=== PATIENT | male | born 1945 | race African-American/Black ===

== ENCOUNTER 2016-04-12 03:26 | Inpatient (IN) | payer MEDICARE, OTHER ==
[~2016-04-12] VITALS: Ht 172.7 cm; Wt 45.0 kg
[2016-04-12] MEDS ORDERED: ACLI400A2 IH (06:27)
[2016-04-12] MEDS ORDERED: FURO20TA3 PO (06:27)
[2016-04-12] MEDS ORDERED: OLOD4MIS2 IH (06:27)
[2016-04-12] MEDS ORDERED: PROAIR HFA8.5 GM INH (06:27)
[2016-04-12] MEDS ORDERED: LIDO5JEL3 MM (06:27)
[2016-04-12] MEDS ORDERED: ATOR20TA58 PO (06:27)
[2016-04-12] MEDS ORDERED: PHEN-373 PO (06:27)
[2016-04-12] MEDS ORDERED: METO50TA10 PO (06:27)
[2016-04-12] MEDS ORDERED: SENN1TAB99 PO (06:27)
[2016-04-12] MEDS ORDERED: POLY17PO3 PO (06:27)
[2016-04-12] MEDS ORDERED: ALBU2.5V14 NEB (06:27)
[2016-04-12] MEDS ORDERED: CHOL20002 PO (06:27)
[2016-04-12] MEDS ORDERED: APIX5TAB PO (06:27)
[2016-04-12] MEDS ORDERED: LISI-334 PO (06:27)
[2016-04-12] MEDS ORDERED: CALC-47 PO (06:28)
[2016-04-12] MEDS ORDERED: [UNRECOGNIZED DRUG - CODE] PO (06:31)
[2016-04-12 07:55] VITALS: BP 128/75
[2016-04-12] MEDS ORDERED: PROCHLORPERAZINE 25 MG SUPP.RECT. PR PRN (10:15)
[2016-04-12] MEDS ORDERED: MAGNESIUM HYDROXIDE 2,400 MG/30 ML ORAL.SUSP. PO PRN (10:15)
[2016-04-12] MEDS ORDERED: MAG HYDROX/ALUMINUM HYDROX/SMC 30 ML ORAL.SUSP PO PRN (10:15)
[2016-04-12] MEDS ORDERED: NON FORMULARY ITEM (Albuterol Sulfate (Proair Hfa Inhaler) 1 PUFF) INH PRN (10:15)
[2016-04-12] MEDS ORDERED: LIDOCAINE 2% TOPICAL JELLY 5GM TUBE. TP PRN (10:15)
[2016-04-12] MEDS ORDERED: ONDANSETRON PF 4 MG/2 ML VIAL. IV PRN (10:15)
[2016-04-12] MEDS ORDERED: LACTULOSE 20 GM/30 ML SOLUTION. PO PRN (10:15)
[2016-04-12] MEDS ORDERED: PROCHLORPERAZINE 10 MG/2 ML VIAL. IV PRN (10:15)
[2016-04-12] MEDS ORDERED: BISACODYL 10 MG SUPP.RECT PR PRN (10:15)
[2016-04-12] MEDS ORDERED: MORPHINE SULFATE 2 MG/ML DISP.SYRIN. IV PRN (10:15)
[2016-04-12] MEDS ORDERED: NON FORMULARY ITEM (Albuterol Sulfate (Albuterol Sulfate Conc Neb Soln) 1 VIAL) NEB PRN (10:15)
[2016-04-12] MEDS ORDERED: POLYETHYLENE GLYCOL 3350 17 GM PACKET. PO PRN (10:15)
[2016-04-12] MEDS ORDERED: FUROSEMIDE 20 MG TABLET PO PRN (10:15)
[2016-04-12 11:11] VITALS: BP 115/69
[2016-04-12] MEDS: SENNOSIDES/DOCUSATE 8.6/50MG TABLET. PO SCH (11:30)
[2016-04-12] MEDS: CALCIUM CARB/VIT D3 500/200 TABLET PO SCH (11:30)
[2016-04-12] MEDS: METOPROLOL SUCC 24HR ER 50 MG TAB.ER.24H. PO SCH (11:31)
[2016-04-12] MEDS: APIXABAN 5 MG TABLET. PO SCH ×2 (11:31→20:55)
[2016-04-12] MEDS: LISINOPRIL 20 MG TABLET PO SCH (11:32)
[2016-04-12 11:36] LABS: BASO % 0 % (0-3); EOS % 0 % (0-3); HEMATOCRIT 28.2 % (39.0-53.0); HEMOGLOBIN 8.6 g/dL (13.0-17.5); LYMPH # 0.4 x10^3/uL (1.0-4.8); LYMPH % 13 % (24-48); MEAN CORPUSCULAR HEMOGLOBIN 32 pg (25-35); MEAN CORPUSCULAR HGB CONC 31 g/dL (31-37); MEAN CORPUSCULAR VOLUME 105 fL (79-100); MONO % 7 % (0-9); NEUT % 80 % (31-73); PLATELET COUNT 133 x10^3/uL (140-400); RED BLOOD COUNT 2.69 x10^6/uL (4.30-5.70); RED CELL DISTRIBUTION WIDTH 14.4 % (11.5-14.5); WHITE BLOOD COUNT 2.9 x10^3/uL (4.0-11.0)
[2016-04-12 11:48] LABS: INR 1.3 (0.8-1.1); PROTHROMBIN TIME PATIENT 15.5 SEC (11.7-14.0)
[2016-04-12] MEDS ORDERED: IPRATRPIUM/ALBUTEROL 0.5/2.5MG 3 ML NEBU. NEB SCH (12:00)
[2016-04-12 12:10] LABS: ALBUMIN 3.2 g/dL (3.4-5.0); BLOOD UREA NITROGEN 26 mg/dL (8-26); CHLORIDE 104 mmol/L (98-107); CREATININE 0.8 mg/dL (0.7-1.3); GFR 114.7; GLUCOSE 179 mg/dL (70-99); MAGNESIUM 2.1 mg/dL (1.8-2.4); PHOSPHORUS 4.1 mg/dL (2.6-4.7); POTASSIUM 4.2 mmol/L (3.5-5.1); SODIUM 151 mmol/L (136-145)
[2016-04-12 12:20] LABS: CARBON DIOXIDE > 45 mmol/L (21-32)
--- NOTE | 2016-04-12 13:42 | PDOC1 ---
History and Physical Date of Admission Date of Admission DATE: 04/12/16 TIME: 13:34 Identification/Chief Complaint Chief Complaint soa, cough Source Source: Caregiver, Chart review, Patient History of Present Illness History of Present Illness 71 y./o male who follows usually at the [facility], transferred here for inpt treatment of pneumonia (no beds avail at [facility] last night). ABout a week hx cough, productive , green to romo, claims fevers at home SOA, no reports of pleuritic CP, AT [facility] CXR shows left lobe PNA, some stool burden and a hiatal hernia,. Pt has hx atrial fib and Rate tends to be on high side, on elliquis, Also UTI on UA at [facility]. All records reveiwed fromn [facility] (in chart). Pt denies urinary sxs Pt used to smoke, has quit HAs had 3 pneumonias in the past, nothing recent Past Medical History Cardiovascular: AFIB, HTN Pulmonary: Bronchitis, Pneumonia GI: No pertinent hx Heme/Onc: No pertinent hx Hepatobiliary: No pertinent hx Musculoskeletal: low back pain Rheumatologic: No pertinent hx Infectious disease: No pertinent hx ENT: Sincusitis Renal/: No pertinent hx Endocrine: No pertinent hx Dermatology: No pertinent hx Past Surgical History Past Surgical History: No pertinent history Family History Family History: No Significant Social History Smoke: Quit ALCOHOL: none Drugs: None Current Problem List Problem List Problems Medical Problems: (1) Pneumonia Status: Acute Problems: Current Medications Current Medications Current Medications Ondansetron HCl (Zofran) 4 mg PRN Q6HRS PRN IV NAUSEA/VOMITING; Start 04/12/16 at 10:15 Prochlorperazine Edisylate (Compazine) 10 mg PRN Q6HRS PRN IV NAUSEA/VOMITING; Start 04/12/16 at 10:15 Prochlorperazine (Compazine) 25 mg PRN Q12HR PRN LA NAUSEA/VOMITING; Start at 10:15 Al Hydrox/Mg Hydrox/Simethicone (Mylanta Plus Xs) 30 ml PRN Q3HRS PRN PO HEARTBURN / GAS; Start 04/12/16 at 10:15 Calcium Carbonate/ Glycine (Tums) 500 mg PRN Q3HRS PRN PO UPSET STOMACH; Start 04/12/16 at 10:15 Oxycodone HCl (Roxicodone) 5 mg PRN Q3HRS PRN PO BREAKTHROUGH PAIN; Start 04/12 at 10:15 Morphine Sulfate 1 mg PRN Q1HR PRN IV PAIN; Start 04/12/16 at 10:15 Magnesium Hydroxide (Milk Of Magnesia) 2,400 mg PRN Q12HR PRN PO CONSTIPATION; Start 04/12/16 at 10:15 Lactulose 20 gm PRN Q12HR PRN PO CONSTIPATION; Start 04/12/16 at 10:15 Bisacodyl (Dulcolax Supp) 10 mg PRN DAILY PRN LA CONSTIPATION; Start 04/12/16 at 10:15 Apixaban (Eliquis) 5 mg BID PO Last administered on 04/12/16 11:31; Start at 10:30 Atorvastatin Calcium (Lipitor) 20 mg QHS PO ; Start 04/12/16 at 21:00 Calcium/Vitamin D (Oscal D 500mg/ 200uts) 1 tab DAILY PO Last administered on 11:30; Start 04/12/16 at 11:00 Furosemide (Lasix) 10 mg DAILY PRN PO Fluid retention; Start 04/12/16 at 10:15 ; Stop 04/12/16 at 10:15; Status DC Lidocaine HCl (Xylocaine 2% Topical 5gm Tube) 1 belkys PRN Q4HRS PRN TP PAIN; Start 04/12/16 at 10:15 Lisinopril (Prinivil) 20 mg DAILY PO Last administered on 04/12/16 11:32; Start 04/12/16 at 10:30 Metoprolol Succinate (Toprol Xl) 25 mg DAILY PO Last administered on 04/12/16 11:31; Start 04/12/16 at 10:30 Phenazopyridine HCl (Pyridium) 200 mg TID PO ; Start 04/12/16 at 14:00 Polyethylene Glycol (miraLAX PACKET) 17 gm PRN DAILY PRN PO CONSTIPATION; Start 04/12/16 at 10:15 Senna/Docusate Sodium (Senna Plus) 1 tab DAILY PO Last administered on 11:30; Start 04/12/16 at 10:30 Non-Formulary Medication 400 mcg BID IH ; Start 04/12/16 at 21:00; Status UNV Non-Formulary Medication 1 vial PRN QID PRN NEB SHORTNESS OF BREATH; Start at 10:15; Stop 04/12/16 at 10:36; Status DC Non-Formulary Medication 1 puff PRN QID PRN INH SHORTNESS OF BREATH; Start at 10:15; Stop 04/12/16 at 10:36; Status DC Non-Formulary Medication 237 ml BID PO ; Start 04/12/16 at 21:00; Stop 04/12/16 at 21:00; Status DC Non-Formulary Medication 4 gm DAILY IH ; Start 04/13/16 at 09:00; Status UNV Info (Anti-Coagulation Monitoring By Pharmacy) 1 each PRN DAILY PRN MC SEE COMMENTS; Start 04/12/16 at 10:30 Albuterol/ Ipratropium (Duoneb) 3 ml RTQID NEB ; Start 04/12/16 at 12:00; Status UNV Albuterol Sulfate (Ventolin Neb Soln) 2.5 mg PRN Q6HRS PRN NEB SHORTNESS OF BREATH; Start 04/12/16 at 10:45 Active Scripts Active Reported Nutritional Shake (Lactose-Reduced Food) 237 Ml Liquid 237 Ml PO BID Calcium 500 + Vit D 200 Tablet (Calcium Carbonate/Vitamin D3) 1 Each Tablet 1 Each PO Furosemide 20 Mg Tablet 10 Mg PO PRN PRN Polyethylene Glycol 3350 17 Gm Powd.pack 17 Gm PO PRN DAILY PRN Phenazopyridine Hcl 200 Mg Tablet 1 Tab PO TID Striverdi Respimat (Olodaterol HCl) 4 Gm Mist.inhal 4 Gm IH DAILY Metoprolol Succinate 50 Mg Tab.er.24h 25 Mg PO Lisinopril 20 Mg Tablet 1 Tab PO DAILY Lidocaine Hcl 5 Ml Jel..ml. 5 Ml MM PRN Q4HRS PRN Senna-Docusate Sodium Tablet (Sennosides/Docusate Sodium) 1 Each Tablet 1 Each PO Vitamin D-3 (Cholecalciferol (Vitamin D3)) 2,000 Unit Tablet 1,000 Unit PO Atorvastatin Calcium 20 Mg Tablet 1 Tab PO DAILY Eliquis (Apixaban) 5 Mg Tablet 5 Mg PO BID Albuterol Sulfate Conc Neb Soln (Albuterol Sulfate) 2.5 Mg/0.5 Ml Vial.neb 1 Vial NEB PRN QID PRN Proair Hfa Inhaler (Albuterol Sulfate) 8.5 Gm Hfa.aer.ad 1 Puff INH PRN QID PRN Tudorza Pressair (Aclidinium [place]) 400 Mcg Aer.pow.ba 400 Mcg IH BID Allergies Allergies: Coded Allergies: amiodarone (Unverified Allergy, Intermediate, 04/12/16) melatonin (Unverified Allergy, Intermediate, 04/12/16) mometasone furoate (Unverified Allergy, Intermediate, 04/12/16) tiotropium (Unverified Allergy, Intermediate, 04/12/16) trazodone (Unverified Allergy, Intermediate, 04/12/16) ROS General: YES: Other (fevers) PSYCHOLOGICAL ROS: No: Anxiety, Behavioral Disorder, Concentration difficultie , Decreased libido, Depression, Disorientation, Hallucinations, Hostility, Irritablity, Memory difficulties, Mood Swings, Obsessive thoughts, Other, Physical abuse, Sexual abuse, Sleep disturbances, Suicidal ideation Eyes: No Blurry vision, No Decreased vision, No Double vision, No Dry eyes, No Excessive tearing, No Eye Pain, No Itchy Eyes, No Loss of vision, No Other, No Photophobia, No Scotomata, No Uses contacts, No Uses glasses HEENT: No: Epistaxis, Heacaches, Hearing change, Nasal congestion, Nasal discharge, Oral lesions, Other, Sinus pain, Sneezing, Snoring, Sore Throat, Tinnitus, Vertigo, Visual Changes, Vocal changes ALLERGY AND IMMUNOLOGY: No: Hives, Insect Bite Sensitivity, Itchy/Watery Eyes, Nasal Congestion, Other, Post Nasal Drip, Seasonal Allergies Hematological and Lymphatic: No: Bleeding Problems, Blood Clots, Blood Transfusions, Brusing, Night Sweats, Other, Pallor, Swollen Lymph Nodes ENDOCRINE: No: Breast Changes, Galactorrhea, Hair Pattern Changes, Hot Flashes , Malaise/lethargy, Mood Swings, Other, Palpitations, Polydipsia/polyuria, Skin Changes, Temperature Intolerance, Unexpected Weight Changes Breast: No New/Changing Breast Lumps, No Nipple changes, No Nipple discharge, No Other Respiratory: YES: Cough, Shortness of breath, Sputum Changes Cardiovascular: No Chest Pain, No Edema, No Lt Headedness, No Orthopnea, No Other, No Palpitations, No Paroxysmal Noc. Dyspnea Gastrointestinal: Yes Constipation Genitourinary: YES , YES , YES , YES , YES , YES , YES , YES Discharge, YES Dysuria, YES Flank Pain, YES Frequency, YES Hematuria, YES Incontinence, YES Other, YES Pain, YES Retention, YES Urgency Musculoskeletal: No Gait Disturbance, No Joint Pain, No Joint Stiffness, No Joint Swelling, No Muscle Pain, No Muscular Weakness, No Other, No Pain In:, No Swelling In: Neurological: No Behavorial Changes, No Bowel/Bladder ControlChng, No Confusion , No Dizziness, No Gait Disturbance, No Headaches, No Impaired Coord/balance, No Memory Loss, No Numbness/Tingling, No Other, No Seizures, No Speech Problems , No Tremors, No Visual Changes, No Weakness Skin: No Acne, No Dry Skin, No Eczema, No Hair Changes, No Lumps, No Mole Changes, No Mottling, No Nail Changes, No Other, No Pruritus, No Rash, No Skin Lesion Changes Physical Exam General: Alert HEENT: Atraumatic Lungs: Normal air movement Heart: S1S2, RRR, no thrills, no rubs Cardiovascular: S1 Breasts: Normal Abdomen: Normal bowel sounds, Soft, No tenderness, No hepatosplenomegaly, No masses Rectal Exam: not examined PELVIC: Nml ext genitalia Extremities: No clubbing, No cyanosis, No edema, Normal pulses, No tenderness/ swelling Skin: No rashes, No breakdown, No significant lesion Neuro: Normal gait, Normal speech, Strength at 5/5 X4 ext, Normal tone, Sensation intact, Cranial nerves 3-12 NL, Reflexes 2+ Psych/Mental Status: Mental status NL, Mood NL Vitals Vitals Vital Signs Date Time Temp Pulse Resp B/P Pulse Ox O2 Delivery O2 Flow Rate FiO2 04/12/16 12:38 78 Room Air 04/12/16 11:32 86 115/69 04/12/16 11:11 98.2 18 98.2 04/12/16 08:00 2.0 Labs Labs Laboratory Tests Test 04/12/16 11:15 White Blood Count 2.9x10^3/uL (4.0-11.0) Red Blood Count 2.69x10^6/uL (4.30-5.70) Hemoglobin 8.6g/dL (13.0-17.5) Hematocrit 28.2% (39.0-53.0) Mean Corpuscular Volume 105fL (79-100) Mean Corpuscular Hemoglobin 32pg (25-35) Mean Corpuscular Hemoglobin Concent 31g/dL (31-37) Red Cell Distribution Width 14.4% (11.5-14.5) Platelet Count 133x10^3/uL (140-400) Neutrophils (%) (Auto) 80% (31-73) Lymphocytes (%) (Auto) 13% (24-48) Monocytes (%) (Auto) 7% (0-9) Eosinophils (%) (Auto) 0% (0-3) Basophils (%) (Auto) 0% (0-3) Neutrophils # (Auto) 2.3x10^3uL (1.8-7.7) Lymphocytes # (Auto) 0.4x10^3/uL (1.0-4.8) Monocytes # (Auto) 0.2x10^3/uL (0.0-1.1) Eosinophils # (Auto) 0.0x10^3/uL (0.0-0.7) Basophils # (Auto) 0.0x10^3/uL (0.0-0.2) Prothrombin Time 15.5SEC (11.7-14.0) Prothromb Time International Ratio 1.3 (0.8-1.1) Sodium Level 151mmol/L (136-145) Potassium Level 4.2mmol/L (3.5-5.1) Chloride Level 104mmol/L (98-107) Carbon Dioxide Level > 45mmol/L (21-32) Anion Gap (6-14) Blood Urea Nitrogen 26mg/dL (8-26) Creatinine 0.8mg/dL (0.7-1.3) Estimated GFR (Cockcroft-Gault) 114.7 Glucose Level 179mg/dL (70-99) Calcium Level 9.0mg/dL (8.5-10.1) Phosphorus Level 4.1mg/dL (2.6-4.7) Magnesium Level 2.1mg/dL (1.8-2.4) Albumin 3.2g/dL (3.4-5.0) Laboratory Tests Test 04/12/16 11:15 White Blood Count 2.9x10^3/uL (4.0-11.0) Red Blood Count 2.69x10^6/uL (4.30-5.70) Hemoglobin 8.6g/dL (13.0-17.5) Hematocrit 28.2% (39.0-53.0) Mean Corpuscular Volume 105fL (79-100) Mean Corpuscular Hemoglobin 32pg (25-35) Mean Corpuscular Hemoglobin Concent 31g/dL (31-37) Red Cell Distribution Width 14.4% (11.5-14.5) Platelet Count 133x10^3/uL (140-400) Neutrophils (%) (Auto) 80% (31-73) Lymphocytes (%) (Auto) 13% (24-48) Monocytes (%) (Auto) 7% (0-9) Eosinophils (%) (Auto) 0% (0-3) Basophils (%) (Auto) 0% (0-3) Neutrophils # (Auto) 2.3x10^3uL (1.8-7.7) Lymphocytes # (Auto) 0.4x10^3/uL (1.0-4.8) Monocytes # (Auto) 0.2x10^3/uL (0.0-1.1) Eosinophils # (Auto) 0.0x10^3/uL (0.0-0.7) Basophils # (Auto) 0.0x10^3/uL (0.0-0.2) Prothrombin Time 15.5SEC (11.7-14.0) Prothromb Time International Ratio 1.3 (0.8-1.1) Sodium Level 151mmol/L (136-145) Potassium Level 4.2mmol/L (3.5-5.1) Chloride Level 104mmol/L (98-107) Carbon Dioxide Level > 45mmol/L (21-32) Anion Gap (6-14) Blood Urea Nitrogen 26mg/dL (8-26) Creatinine 0.8mg/dL (0.7-1.3) Estimated GFR (Cockcroft-Gault) 114.7 Glucose Level 179mg/dL (70-99) Calcium Level 9.0mg/dL (8.5-10.1) Phosphorus Level 4.1mg/dL (2.6-4.7) Magnesium Level 2.1mg/dL (1.8-2.4) Albumin 3.2g/dL (3.4-5.0) VTE Prophylaxis Ordered VTE Prophylaxis Devices: Yes VTE Pharmacological Prophylaxi: Yes Assessment/Plan Assessment/Plan 1. CAP needing inpt management 2. Atrial fib in MVR /RVR intermittently on elliquis, chronic 3. 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 COnstipation 6. UTI 7. 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 LALO, vasomotor PLAN: Add urine cx BAseline labs and EKG and CXR - cant see films Resume home meds PT/OT COugh med Send for sputum cx NEbs Pulmo consult IV wilver Johnston pt and RN GREYSON SMILEY MD Apr 12, 2016 13:42
[2016-04-12] MEDS: PHENAZOPYRIDINE 200 MG TABLET. PO SCH ×2 (14:51→20:55)
[2016-04-12 15:09] VITALS: BP 138/64
[2016-04-12] MEDS: IPRATRPIUM/ALBUTEROL 0.5/2.5MG 3 ML NEBU. NEB SCH ×2 (15:29→20:13)
--- NOTE | 2016-04-12 16:09 | RAD ---
Portable chest, 04/12/2016: History: Shortness of breath, pneumonia No previous chest radiographs are available at this time for comparison purposes. A left-sided transvenous pacemaker is in place with 3 leads extending into the heart. The heart is mildly enlarged. The lungs appear hyperexpanded. There are moderately prominent interstitial markings in the lungs. There is a right apical pleural-parenchymal opacity probably due to scarring. No pulmonary consolidation is seen. No pleural fluid is evident. The bony structures are demineralized. IMPRESSION: 1. Mild cardiomegaly. 2. Interstitial prominence in the lungs suggesting fibrosis, interstitial pulmonary edema or a combination of the above.
[2016-04-12] MEDS: GUAIFENESIN 200 MG/10 ML LIQUID. PO SCH ×2 (17:11→20:54)
--- NOTE | 2016-04-12 17:41 | PDOC ---
PULMONARY PROGRESS NOTES Vitals Vital Signs Date Time Temp Pulse Resp B/P Pulse Ox O2 Delivery O2 Flow Rate FiO2 04/12/16 15:30 Nasal Cannula 4.0 04/12/16 15:09 97.9 70 18 138/64 99 97.9 Cardiovascular: S1 Labs Laboratory Tests Test 04/12/16 11:15 White Blood Count 2.9x10^3/uL (4.0-11.0) Red Blood Count 2.69x10^6/uL (4.30-5.70) Hemoglobin 8.6g/dL (13.0-17.5) Hematocrit 28.2% (39.0-53.0) Mean Corpuscular Volume 105fL (79-100) Mean Corpuscular Hemoglobin 32pg (25-35) Mean Corpuscular Hemoglobin Concent 31g/dL (31-37) Red Cell Distribution Width 14.4% (11.5-14.5) Platelet Count 133x10^3/uL (140-400) Neutrophils (%) (Auto) 80% (31-73) Lymphocytes (%) (Auto) 13% (24-48) Monocytes (%) (Auto) 7% (0-9) Eosinophils (%) (Auto) 0% (0-3) Basophils (%) (Auto) 0% (0-3) Neutrophils # (Auto) 2.3x10^3uL (1.8-7.7) Lymphocytes # (Auto) 0.4x10^3/uL (1.0-4.8) Monocytes # (Auto) 0.2x10^3/uL (0.0-1.1) Eosinophils # (Auto) 0.0x10^3/uL (0.0-0.7) Basophils # (Auto) 0.0x10^3/uL (0.0-0.2) Prothrombin Time 15.5SEC (11.7-14.0) Prothromb Time International Ratio 1.3 (0.8-1.1) Sodium Level 151mmol/L (136-145) Potassium Level 4.2mmol/L (3.5-5.1) Chloride Level 104mmol/L (98-107) Carbon Dioxide Level > 45mmol/L (21-32) Anion Gap (6-14) Blood Urea Nitrogen 26mg/dL (8-26) Creatinine 0.8mg/dL (0.7-1.3) Estimated GFR (Cockcroft-Gault) 114.7 Glucose Level 179mg/dL (70-99) Calcium Level 9.0mg/dL (8.5-10.1) Phosphorus Level 4.1mg/dL (2.6-4.7) Magnesium Level 2.1mg/dL (1.8-2.4) Albumin 3.2g/dL (3.4-5.0) Laboratory Tests Test 04/12/16 11:15 White Blood Count 2.9x10^3/uL (4.0-11.0) Red Blood Count 2.69x10^6/uL (4.30-5.70) Hemoglobin 8.6g/dL (13.0-17.5) Hematocrit 28.2% (39.0-53.0) Mean Corpuscular Volume 105fL (79-100) Mean Corpuscular Hemoglobin 32pg (25-35) Mean Corpuscular Hemoglobin Concent 31g/dL (31-37) Red Cell Distribution Width 14.4% (11.5-14.5) Platelet Count 133x10^3/uL (140-400) Neutrophils (%) (Auto) 80% (31-73) Lymphocytes (%) (Auto) 13% (24-48) Monocytes (%) (Auto) 7% (0-9) Eosinophils (%) (Auto) 0% (0-3) Basophils (%) (Auto) 0% (0-3) Neutrophils # (Auto) 2.3x10^3uL (1.8-7.7) Lymphocytes # (Auto) 0.4x10^3/uL (1.0-4.8) Monocytes # (Auto) 0.2x10^3/uL (0.0-1.1) Eosinophils # (Auto) 0.0x10^3/uL (0.0-0.7) Basophils # (Auto) 0.0x10^3/uL (0.0-0.2) Prothrombin Time 15.5SEC (11.7-14.0) Prothromb Time International Ratio 1.3 (0.8-1.1) Sodium Level 151mmol/L (136-145) Potassium Level 4.2mmol/L (3.5-5.1) Chloride Level 104mmol/L (98-107) Carbon Dioxide Level > 45mmol/L (21-32) Anion Gap (6-14) Blood Urea Nitrogen 26mg/dL (8-26) Creatinine 0.8mg/dL (0.7-1.3) Estimated GFR (Cockcroft-Gault) 114.7 Glucose Level 179mg/dL (70-99) Calcium Level 9.0mg/dL (8.5-10.1) Phosphorus Level 4.1mg/dL (2.6-4.7) Magnesium Level 2.1mg/dL (1.8-2.4) Albumin 3.2g/dL (3.4-5.0) Medications Active Scripts Medications Dose Route/Sig Days Date Category Nutritional Shake (Lactose-Reduced Food) 237 Ml Liquid 237 Ml PO BID 04/12/16 Reported Calcium 500 + Vit D 200 Tablet (Calcium Carbonate/Vitamin D3) 1 Each Tablet 1 Each PO 04/12/16 Reported Furosemide 20 Mg Tablet 10 Mg PO PRN PRN 04/12/16 Reported Polyethylene Glycol 3350 17 Gm Powd.pack 17 Gm PO PRN DAILY PRN 04/12/16 Reported Phenazopyridine Hcl 200 Mg Tablet 1 Tab PO TID 04/12/16 Reported Striverdi Respimat (Olodaterol HCl) 4 Gm Mist.inhal 4 Gm IH DAILY 04/12/16 Reported Metoprolol Succinate 50 Mg Tab.er.24h 25 Mg PO 04/12/16 Reported Lisinopril 20 Mg Tablet 1 Tab PO DAILY 04/12/16 Reported Lidocaine Hcl 5 Ml Jel..ml. 5 Ml MM PRN Q4HRS PRN 04/12/16 Reported Senna-Docusate Sodium Tablet (Sennosides/Docusate Sodium) 1 Each Tablet 1 Each PO 04/12/16 Reported Vitamin D-3 (Cholecalciferol (Vitamin D3)) 2,000 Unit Tablet 1,000 Unit PO 04/12/16 Reported Atorvastatin Calcium 20 Mg Tablet 1 Tab PO DAILY 04/12/16 Reported Eliquis (Apixaban) 5 Mg Tablet 5 Mg PO BID 04/12/16 Reported Albuterol Sulfate Conc Neb Soln (Albuterol Sulfate) 2.5 Mg/0.5 Ml Vial.neb 1 Vial NEB PRN QID PRN 04/12/16 Reported Proair Hfa Inhaler (Albuterol Sulfate) 8.5 Gm Hfa.aer.ad 1 Puff INH PRN QID PRN 04/12/16 Reported Tudorza Pressair (Aclidinium [place]) 400 Mcg Aer.pow.ba 400 Mcg IH BID 04/12/16 Reported Impression . abnormal cxr will check ct chest chronic resp failure clinical pneumonia see order thanks FAHAD BOATENG MD Apr 12, 2016 17:41
[2016-04-12 19:46] VITALS: BP 126/54
[2016-04-12] MEDS: ATORVASTATIN CALCIUM 20 MG TABLET PO SCH (20:54)
[2016-04-12] MEDS ORDERED: NON FORMULARY ITEM (Aclidinium Bromide (Tudorza Pressair) 400 MCG) IH SCH (21:00)
[2016-04-12] MEDS ORDERED: LACTOSE REDUCED FOOD PO SCH (21:00)
[2016-04-12 23:48] VITALS: BP 102/58
[2016-04-13 02:52] VITALS: BP 109/72
--- NOTE | 2016-04-13 06:42 | CONS ---
DATE OF CONSULTATION: 04/12/2016 ATTENDING PHYSICIAN: Dr. Sevilla. REASON FOR CONSULTATION: The patient seen in pulmonary consultation at the request of Dr. Sevilla for pneumonia. HISTORY OF PRESENT ILLNESS: The patient is a 71-year-old that was admitted to [facility] and transferred to our facility as a result of no bed available at the [facility]. The patient has been sick now for quite some time, coughing up some green sputum, subjective fever at home. No nausea, vomiting, normally wears 4 liters of oxygen supplementation at home. Denies any acute onset of shortness of breath. According to the current report, chest x-ray at the [facility] revealed left lower lobe pneumonia. The patient quit tobacco 3 years ago. He has lost a significant amount of weight. He has gone down 2 to 3 belt loops. He cannot tell me if he has had a CT of the chest in the past. PAST MEDICAL HISTORY: Chronic atrial fibrillation, hypertension, COPD, chronic bronchitis, sinusitis. PAST SURGICAL HISTORY: No recent major surgeries. ALLERGIES: Listed to AMIODARONE, MELATONIN, TIOTROPIUM, TRAZODONE AND MOMETASONE. SOCIAL HISTORY: Denies any current use of tobacco or alcohol. CURRENT MEDICATION: List was reviewed. Please see the MRAD. FAMILY HISTORY: No family history of lung cancer. REVIEW OF SYSTEMS: As indicated above. Otherwise, the 10-point system was reviewed and negative. PHYSICAL EXAMINATION: GENERAL: The patient was in no respiratory distress. VITAL SIGNS: Stable. O2 saturation greater than 92%. HEENT: Eyes, the sclerae were nonicteric. NECK: Jugular venous distention was not elevated. No lymphadenopathy. CHEST: Full expansion. LUNGS: Very poor airway flow with scattered rhonchi. CARDIOVASCULAR: Regular rate and rhythm with S1, S2, no S3. ABDOMEN: Soft, nontender, nondistended. EXTREMITIES: No clubbing, cyanosis or edema. NEUROLOGIC: The patient was awake, alert, following commands. A detailed neuro exam was not performed. LABORATORY DATA: White count was low, hemoglobin and hematocrit are low. Electrolytes were noted. Albumin upon admission was 3.2. IMAGING: Chest x-ray revealed interstitial prominent in both lungs suggestive of interstitial lung disease, possibly fibrosis. IMPRESSION: 1. Abnormal x-ray revealing increased interstitial lung markings suggestive of fibrosis, possibly pulmonary edema. 2. Clinical pneumonia. 3. Chronic respiratory failure. 4. Significant weight loss, body mass index of 15.1. 5. Moderate protein malnutrition, present upon admission. 6. Leukopenia. PLAN: 1. Recommend continue current antibiotics and nebulized treatments. 2. We will obtain CT chest to better delineate the lung parenchyma, also rule out the possibility of an indolent tumor. 3. Consult dietitian for malnutrition. 4. Continue oxygen supplementation. 5. DVT prophylaxis. I do appreciate the privilege in sharing this patient's care. FAHAD BOATENG MD DR: BASHIR/barbra JOB#: [id number] / [id number]
[2016-04-13 07:00] VITALS: BP 98/58
[2016-04-13] MEDS: IPRATRPIUM/ALBUTEROL 0.5/2.5MG 3 ML NEBU. NEB SCH ×4 (07:59→20:17)
[2016-04-13] MEDS: METOPROLOL SUCC 24HR ER 50 MG TAB.ER.24H. PO SCH (09:00)
[2016-04-13] MEDS: STRIVERDI RESPIMAT INH SCH (09:00)
[2016-04-13] MEDS: LISINOPRIL 20 MG TABLET PO SCH (09:00)
[2016-04-13] MEDS ORDERED: NON FORMULARY ITEM (Olodaterol HCl (Striverdi Respimat) 4 GM) IH SCH (09:00)
--- NOTE | 2016-04-13 09:04 | PDOC ---
PULMONARY PROGRESS NOTES Subjective has sob, cough, sputum, runny nose, back pain Vitals Vital Signs Date Time Temp Pulse Resp B/P Pulse Ox O2 Delivery O2 Flow Rate FiO2 04/13/16 07:59 100 Nasal Cannula 4.0 04/13/16 07:00 98.1 71 16 98/58 98.1 Comments ros as mentioned as above other sys otherwise neg ROS: No Nausea General: Alert, Oriented X4 HEENT: Other (nc at perrl tharot is clear, nose, inflamed mucosa) Lungs: Other (deminished) Cardiovascular: S1 Labs Laboratory Tests Test 04/12/16 11:15 White Blood Count 2.9x10^3/uL (4.0-11.0) Red Blood Count 2.69x10^6/uL (4.30-5.70) Hemoglobin 8.6g/dL (13.0-17.5) Hematocrit 28.2% (39.0-53.0) Mean Corpuscular Volume 105fL (79-100) Mean Corpuscular Hemoglobin 32pg (25-35) Mean Corpuscular Hemoglobin Concent 31g/dL (31-37) Red Cell Distribution Width 14.4% (11.5-14.5) Platelet Count 133x10^3/uL (140-400) Neutrophils (%) (Auto) 80% (31-73) Lymphocytes (%) (Auto) 13% (24-48) Monocytes (%) (Auto) 7% (0-9) Eosinophils (%) (Auto) 0% (0-3) Basophils (%) (Auto) 0% (0-3) Neutrophils # (Auto) 2.3x10^3uL (1.8-7.7) Lymphocytes # (Auto) 0.4x10^3/uL (1.0-4.8) Monocytes # (Auto) 0.2x10^3/uL (0.0-1.1) Eosinophils # (Auto) 0.0x10^3/uL (0.0-0.7) Basophils # (Auto) 0.0x10^3/uL (0.0-0.2) Prothrombin Time 15.5SEC (11.7-14.0) Prothromb Time International Ratio 1.3 (0.8-1.1) Sodium Level 151mmol/L (136-145) Potassium Level 4.2mmol/L (3.5-5.1) Chloride Level 104mmol/L (98-107) Carbon Dioxide Level > 45mmol/L (21-32) Anion Gap (6-14) Blood Urea Nitrogen 26mg/dL (8-26) Creatinine 0.8mg/dL (0.7-1.3) Estimated GFR (Cockcroft-Gault) 114.7 Glucose Level 179mg/dL (70-99) Calcium Level 9.0mg/dL (8.5-10.1) Phosphorus Level 4.1mg/dL (2.6-4.7) Magnesium Level 2.1mg/dL (1.8-2.4) Albumin 3.2g/dL (3.4-5.0) Laboratory Tests Test 04/12/16 11:15 White Blood Count 2.9x10^3/uL (4.0-11.0) Red Blood Count 2.69x10^6/uL (4.30-5.70) Hemoglobin 8.6g/dL (13.0-17.5) Hematocrit 28.2% (39.0-53.0) Mean Corpuscular Volume 105fL (79-100) Mean Corpuscular Hemoglobin 32pg (25-35) Mean Corpuscular Hemoglobin Concent 31g/dL (31-37) Red Cell Distribution Width 14.4% (11.5-14.5) Platelet Count 133x10^3/uL (140-400) Neutrophils (%) (Auto) 80% (31-73) Lymphocytes (%) (Auto) 13% (24-48) Monocytes (%) (Auto) 7% (0-9) Eosinophils (%) (Auto) 0% (0-3) Basophils (%) (Auto) 0% (0-3) Neutrophils # (Auto) 2.3x10^3uL (1.8-7.7) Lymphocytes # (Auto) 0.4x10^3/uL (1.0-4.8) Monocytes # (Auto) 0.2x10^3/uL (0.0-1.1) Eosinophils # (Auto) 0.0x10^3/uL (0.0-0.7) Basophils # (Auto) 0.0x10^3/uL (0.0-0.2) Prothrombin Time 15.5SEC (11.7-14.0) Prothromb Time International Ratio 1.3 (0.8-1.1) Sodium Level 151mmol/L (136-145) Potassium Level 4.2mmol/L (3.5-5.1) Chloride Level 104mmol/L (98-107) Carbon Dioxide Level > 45mmol/L (21-32) Anion Gap (6-14) Blood Urea Nitrogen 26mg/dL (8-26) Creatinine 0.8mg/dL (0.7-1.3) Estimated GFR (Cockcroft-Gault) 114.7 Glucose Level 179mg/dL (70-99) Calcium Level 9.0mg/dL (8.5-10.1) Phosphorus Level 4.1mg/dL (2.6-4.7) Magnesium Level 2.1mg/dL (1.8-2.4) Albumin 3.2g/dL (3.4-5.0) Medications Active Scripts Medications Dose Route/Sig Days Date Category Nutritional Shake (Lactose-Reduced Food) 237 Ml Liquid 237 Ml PO BID 04/12/16 Reported Calcium 500 + Vit D 200 Tablet (Calcium Carbonate/Vitamin D3) 1 Each Tablet 1 Each PO 04/12/16 Reported Furosemide 20 Mg Tablet 10 Mg PO PRN PRN 04/12/16 Reported Polyethylene Glycol 3350 17 Gm Powd.pack 17 Gm PO PRN DAILY PRN 04/12/16 Reported Phenazopyridine Hcl 200 Mg Tablet 1 Tab PO TID 04/12/16 Reported Striverdi Respimat (Olodaterol HCl) 4 Gm Mist.inhal 4 Gm IH DAILY 04/12/16 Reported Metoprolol Succinate 50 Mg Tab.er.24h 25 Mg PO 04/12/16 Reported Lisinopril 20 Mg Tablet 1 Tab PO DAILY 04/12/16 Reported Lidocaine Hcl 5 Ml Jel..ml. 5 Ml MM PRN Q4HRS PRN 04/12/16 Reported Senna-Docusate Sodium Tablet (Sennosides/Docusate Sodium) 1 Each Tablet 1 Each PO 04/12/16 Reported Vitamin D-3 (Cholecalciferol (Vitamin D3)) 2,000 Unit Tablet 1,000 Unit PO 04/12/16 Reported Atorvastatin Calcium 20 Mg Tablet 1 Tab PO DAILY 2/17/17 Reported Eliquis (Apixaban) 5 Mg Tablet 5 Mg PO BID 04/12/16 Reported Albuterol Sulfate Conc Neb Soln (Albuterol Sulfate) 2.5 Mg/0.5 Ml Vial.neb 1 Vial NEB PRN QID PRN 04/12/16 Reported Proair Hfa Inhaler (Albuterol Sulfate) 8.5 Gm Hfa.aer.ad 1 Puff INH PRN QID PRN 04/12/16 Reported Tudorza Pressair (Aclidinium [place]) 400 Mcg Aer.pow.ba 400 Mcg IH BID 04/12/[address] of chest reviewed, No acute finding seen. Extensive emphysematous changes in the lungs. Scattered areas of volume loss in the lungs likely reflect compressive atelectasis and scar. Superimposed pneumonia in the left lower lobe is not entirely excluded Solitary 6 mm pulmonary nodule in left upper Impression . IMPRESSION: 1. Abnormal x-ray revealing increased interstitial lung markings suggestive of fibrosis, possibly pulmonary edema. 2. Clinical pneumonia. 3. Chronic respiratory failure. 4. Significant weight loss, body mass index of 15.1. 5. Moderate protein malnutrition, present upon admission. 6. Leukopenia. Plan . PLAN: 1. Recommend continue current antibiotics and nebulized treatments. 2. ct of chest reviewed, needs ful ct for nirali nodule in 3 mon. . 3. Consult dietitian for malnutrition. 4. Continue oxygen supplementation. 5. DVT prophylaxis. 6. bronchodilator discussed w pt and rn EMILEE RODRIGUES MD Apr 13, 2016 09:04
[2016-04-13] MEDS: GUAIFENESIN 200 MG/10 ML LIQUID. PO SCH ×4 (09:25→21:38)
[2016-04-13] MEDS: PHENAZOPYRIDINE 200 MG TABLET. PO SCH ×3 (09:25→21:38)
[2016-04-13] MEDS: SENNOSIDES/DOCUSATE 8.6/50MG TABLET. PO SCH (09:25)
[2016-04-13] MEDS: CALCIUM CARB/VIT D3 500/200 TABLET PO SCH (09:25)
[2016-04-13] MEDS: APIXABAN 5 MG TABLET. PO SCH (09:27)
--- NOTE | 2016-04-13 09:53 | RAD ---
Indication Productive cough. Difficulty breathing Axial images through the chest and abdomen were obtained. No IV or gastrointestinal contrast was administered. No prior CT imaging of the chest or abdomen is available. The pelvis was not imaged. CT chest: Findings. The ascending thoracic aorta is at the upper limits of normal in size, 4 cm. Some coronary artery calcification is noted. Significant hilar or mediastinal adenopathy is not seen. There are extensive underlying emphysematous changes. There is volume loss in the left lower lobe and to a lesser extent in the right lower lobe likely reflecting compressive atelectasis. Superimposed pneumonia is not entirely excluded. There are changes at the right lung apex probably reflecting scar. There is some minimal pleural calcification in the right upper lobe. A definite acute parenchymal infiltrate is not seen. There is a 6 mm nodule in the left upper lobe, image [address] abdomen: Findings Imaging is limited as no IV or gastrointestinal contrast was administered. The visualized bowel appears unremarkable. A definite abnormality involving the liver or spleen is not seen. The gallbladder is not well depicted. No definite pancreatic abnormality is seen. There is a low-density mass, measuring approximately 1 cm, associated with the left kidney probably reflecting a cyst. A definite significant finding involving the kidneys is not seen. No definite adrenal pathology is seen. An acute finding in the abdomen is not apparent. IMPRESSION: Limited evaluation of the abdomen. No acute finding seen. Extensive emphysematous changes in the lungs. Scattered areas of volume loss in the lungs likely reflect compressive atelectasis and scar. Superimposed pneumonia in the left lower lobe is not entirely excluded Solitary 6 mm pulmonary nodule in left upper PQRS Compliance Statement: One or more of the following individualized dose reduction techniques were utilized for this examination: 1. Automated exposure control 2. Adjustment of the mA and/or kV according to patient size 3. Use of iterative reconstruction technique
[2016-04-13] MEDS: ANTI-COAG MONITOR BY PHARMACY. MC PRN (11:07)
[2016-04-13 11:50] VITALS: BP 96/57
--- NOTE | 2016-04-13 14:42 | PDOC ---
PROGRESS NOTES Chief Complaint Chief Complaint 1. CAP needing inpt management 2. Atrial fib in MVR /RVR intermittently on elliquis, chronic 3. 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 COnstipation 6. UTI 7. 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 LALO, vasomotor History of Present Illness History of Present Illness DOing ok CT scan chest shows emphysema and 6 mm nodule Worked with PT today and yesterday - SNU recommended, pt lives alone at home PLAn: CPM RPt CT 6 mos time in this smoker SW SNU screen Vitals Vitals Vital Signs Date Time Temp Pulse Resp B/P Pulse Ox O2 Delivery O2 Flow Rate FiO2 04/13/16 11:56 100 Nasal Cannula 4.0 04/13/16 11:50 98.1 70 16 96/57 98.1 Physical Exam General: Alert Lungs: Other (deminished) Abdomen: Normal bowel sounds, Soft, No tenderness, No hepatosplenomegaly, No masses Extremities: No clubbing, No cyanosis, No edema, Normal pulses, No tenderness/ swelling Skin: No rashes, No breakdown, No significant lesion Review of Systems Review of Systems denies all 14 pt Assessment and Plan Assessmemt and Plan Problems Medical Problems: (1) Pneumonia Status: Acute Problems: Comment Review of Relevant I have reviewed the following items leonie (where applicable) has been applied. Labs Laboratory Tests Test 04/12/16 11:15 White Blood Count 2.9x10^3/uL (4.0-11.0) Red Blood Count 2.69x10^6/uL (4.30-5.70) Hemoglobin 8.6g/dL (13.0-17.5) Hematocrit 28.2% (39.0-53.0) Mean Corpuscular Volume 105fL (79-100) Mean Corpuscular Hemoglobin 32pg (25-35) Mean Corpuscular Hemoglobin Concent 31g/dL (31-37) Red Cell Distribution Width 14.4% (11.5-14.5) Platelet Count 133x10^3/uL (140-400) Neutrophils (%) (Auto) 80% (31-73) Lymphocytes (%) (Auto) 13% (24-48) Monocytes (%) (Auto) 7% (0-9) Eosinophils (%) (Auto) 0% (0-3) Basophils (%) (Auto) 0% (0-3) Neutrophils # (Auto) 2.3x10^3uL (1.8-7.7) Lymphocytes # (Auto) 0.4x10^3/uL (1.0-4.8) Monocytes # (Auto) 0.2x10^3/uL (0.0-1.1) Eosinophils # (Auto) 0.0x10^3/uL (0.0-0.7) Basophils # (Auto) 0.0x10^3/uL (0.0-0.2) Prothrombin Time 15.5SEC (11.7-14.0) Prothromb Time International Ratio 1.3 (0.8-1.1) Sodium Level 151mmol/L (136-145) Potassium Level 4.2mmol/L (3.5-5.1) Chloride Level 104mmol/L (98-107) Carbon Dioxide Level > 45mmol/L (21-32) Anion Gap (6-14) Blood Urea Nitrogen 26mg/dL (8-26) Creatinine 0.8mg/dL (0.7-1.3) Estimated GFR (Cockcroft-Gault) 114.7 Glucose Level 179mg/dL (70-99) Calcium Level 9.0mg/dL (8.5-10.1) Phosphorus Level 4.1mg/dL (2.6-4.7) Magnesium Level 2.1mg/dL (1.8-2.4) Albumin 3.2g/dL (3.4-5.0) Microbiology 04/13/16 Gram Stain - Final, Complete Medications Current Medications Ondansetron HCl (Zofran) 4 mg PRN Q6HRS PRN IV NAUSEA/VOMITING 1ST CHOICE; Start 04/12/16 at 10:15 Prochlorperazine Edisylate (Compazine) 10 mg PRN Q6HRS PRN IV NAUSEA/VOMITING 2ND CHOICE; Start 04/12/16 at 10:15 Prochlorperazine (Compazine) 25 mg PRN Q12HR PRN NC NAUSEA/VOMITING; Start at 10:15 Al Hydrox/Mg Hydrox/Simethicone (Mylanta Plus Xs) 30 ml PRN Q3HRS PRN PO HEARTBURN / GAS; Start 04/12/16 at 10:15 Calcium Carbonate/ Glycine (Tums) 500 mg PRN Q3HRS PRN PO UPSET STOMACH; Start 04/12/16 at 10:15 Oxycodone HCl (Roxicodone) 5 mg PRN Q3HRS PRN PO BREAKTHROUGH PAIN; Start 04/12 at 10:15 Morphine Sulfate 1 mg PRN Q1HR PRN IV PAIN; Start 04/12/16 at 10:15 Magnesium Hydroxide (Milk Of Magnesia) 2,400 mg PRN Q12HR PRN PO CONSTIPATION; Start 04/12/16 at 10:15 Lactulose 20 gm PRN Q12HR PRN PO CONSTIPATION; Start 04/12/16 at 10:15 Bisacodyl (Dulcolax Supp) 10 mg PRN DAILY PRN NC CONSTIPATION; Start 04/12/16 at 10:15 Apixaban (Eliquis) 5 mg BID PO Last administered on 04/13/16 09:27; Start at 10:30 Atorvastatin Calcium (Lipitor) 20 mg QHS PO Last administered on 04/12/16 20: 54; Start 04/12/16 at 21:00 Calcium/Vitamin D (Oscal D 500mg/ 200uts) 1 tab DAILY PO Last administered on 09:25; Start 04/12/16 at 11:00 Furosemide (Lasix) 10 mg DAILY PRN PO Fluid retention; Start 04/12/16 at 10:15 ; Stop 04/12/16 at 10:15; Status DC Lidocaine HCl (Xylocaine 2% Topical 5gm Tube) 1 belkys PRN Q4HRS PRN TP PAIN; Start 04/12/16 at 10:15 Lisinopril (Prinivil) 20 mg DAILY PO Last administered on 04/12/16 11:32; Start 04/12/16 at 10:30 Metoprolol Succinate (Toprol Xl) 25 mg DAILY PO Last administered on 04/12/16 11:31; Start 04/12/16 at 10:30 Phenazopyridine HCl (Pyridium) 200 mg TID PO Last administered on 04/13/16 09: 25; Start 04/12/16 at 14:00 Polyethylene Glycol (miraLAX PACKET) 17 gm PRN DAILY PRN PO CONSTIPATION; Start 04/12/16 at 10:15 Senna/Docusate Sodium (Senna Plus) 1 tab DAILY PO Last administered on 09:25; Start 04/12/16 at 10:30 Non-Formulary Medication 400 mcg BID IH ; Start 04/12/16 at 21:00; Status UNV Non-Formulary Medication 1 vial PRN QID PRN NEB SHORTNESS OF BREATH; Start at 10:15; Stop 04/12/16 at 10:36; Status DC Non-Formulary Medication 1 puff PRN QID PRN INH SHORTNESS OF BREATH; Start at 10:15; Stop 04/12/16 at 10:36; Status DC Non-Formulary Medication 237 ml BID PO ; Start 04/12/16 at 21:00; Stop 04/12/16 at 21:00; Status DC Non-Formulary Medication 4 gm DAILY IH ; Start 04/13/16 at 09:00; Stop 04/13/16 at 09:00; Status DC Info (Anti-Coagulation Monitoring By Pharmacy) 1 each PRN DAILY PRN MC SEE COMMENTS Last administered on 04/13/16 11:07; Start 04/12/16 at 10:30 Albuterol/ Ipratropium (Duoneb) 3 ml RTQID NEB ; Start 04/12/16 at 12:00; Status UNV Albuterol Sulfate 2.5 mg 2.5 mg PRN Q6HRS PRN NEB SHORTNESS OF BREATH; Start at 10:45 Levofloxacin/ Dextrose (LEVAQUIN 500mg PREMIX) 100 ml @ 100 mls/hr Q24H IV Last administered on 04/12/16 17:11; Start 04/12/16 at 14:00; Stop 04/13/16 at 11:06; Status DC Guaifenesin (Robitussin) 200 mg QID PO Last administered on 04/13/16 13:18; Start 04/12/16 at 17:00 Albuterol/ Ipratropium (Duoneb) 3 ml RTQID NEB Last administered on 04/13/16 11:55; Start 04/12/16 at 16:00 Non-Formulary Medication 1 ea 1 ea DAILY INH Last administered on 04/13/16 09: 00; Start 04/13/16 at 09:00 Levofloxacin/ Dextrose (LEVAQUIN 250mg PREMIX) 50 ml @ 50 mls/hr Q24H IV ; Start 04/13/16 at 17:00 Active Scripts Active Reported Nutritional Shake (Lactose-Reduced Food) 237 Ml Liquid 237 Ml PO BID Calcium 500 + Vit D 200 Tablet (Calcium Carbonate/Vitamin D3) 1 Each Tablet 1 Each PO Furosemide 20 Mg Tablet 10 Mg PO PRN PRN Polyethylene Glycol 3350 17 Gm Powd.pack 17 Gm PO PRN DAILY PRN Phenazopyridine Hcl 200 Mg Tablet 1 Tab PO TID Striverdi Respimat (Olodaterol HCl) 4 Gm Mist.inhal 4 Gm IH DAILY Metoprolol Succinate 50 Mg Tab.er.24h 25 Mg PO Lisinopril 20 Mg Tablet 1 Tab PO DAILY Lidocaine Hcl 5 Ml Jel..ml. 5 Ml MM PRN Q4HRS PRN Senna-Docusate Sodium Tablet (Sennosides/Docusate Sodium) 1 Each Tablet 1 Each PO Vitamin D-3 (Cholecalciferol (Vitamin D3)) 2,000 Unit Tablet 1,000 Unit PO Atorvastatin Calcium 20 Mg Tablet 1 Tab PO DAILY Eliquis (Apixaban) 5 Mg Tablet 5 Mg PO BID Albuterol Sulfate Conc Neb Soln (Albuterol Sulfate) 2.5 Mg/0.5 Ml Vial.neb 1 Vial NEB PRN QID PRN Proair Hfa Inhaler (Albuterol Sulfate) 8.5 Gm Hfa.aer.ad 1 Puff INH PRN QID PRN Tudorza Pressair (Aclidinium [place]) 400 Mcg Aer.pow.ba 400 Mcg IH BID Vitals/I & O Vital Sign - Last 24 Hours 04/12/16 04/12/16 04/12/16 04/12/16 15:09 15:30 19:46 20:00 Temp 97.9 97.7 97.9 97.7 Pulse 70 77 Resp 18 20 B/P 138/64 126/54 Pulse Ox 99 100 O2 Delivery Nasal Cannula Nasal Cannula Nasal Cannula O2 Flow Rate 4.0 4.0 2.0 04/12/16 04/12/16 04/13/16 04/13/16 20:13 23:48 02:52 07:00 Temp 98.6 98.1 98.1 98.6 98.1 98.1 Pulse 73 73 71 Resp 20 20 16 B/P 102/58 109/72 98/58 Pulse Ox 96 99 98 99 O2 Delivery Nasal Cannula Nasal Cannula Nasal Cannula Nasal Cannula O2 Flow Rate 4.0 4.0 4.0 04/13/16 04/13/16 04/13/16 04/13/16 07:59 08:00 09:00 11:50 Temp 98.1 98.1 Pulse 71 70 Resp 16 B/P 98/58 96/57 Pulse Ox 100 96 O2 Delivery Nasal Cannula Nasal Cannula Nasal Cannula O2 Flow Rate 4.0 4.0 4.0 04/13/16 11:56 Pulse Ox 100 O2 Delivery Nasal Cannula O2 Flow Rate 4.0 Intake and Output 04/12/16 04/12/16 04/13/16 15:00 23:00 07:00 Intake Total 250 ml Output Total 300 ml 250 ml Balance -50 ml -250 ml GREYSON SMILEY MD Apr 13, 2016 14:42
[2016-04-13 15:00] VITALS: BP 104/59
[2016-04-13] MEDS: LIDOCAINE (700MG/PATCH) PATCH. TD SCH (15:15)
[2016-04-13 19:15] VITALS: BP 102/57
[2016-04-13] MEDS: ATORVASTATIN CALCIUM 20 MG TABLET PO SCH (21:38)
[2016-04-13 23:20] VITALS: BP 102/58
[2016-04-14] VITALS (7 sets, daily range): BP systolic 94–124; BP diastolic 48–74
[2016-04-14] MEDS: LIDOCAINE (700MG/PATCH) PATCH. TD SCH (07:53)
[2016-04-14] MEDS: GUAIFENESIN 200 MG/10 ML LIQUID. PO SCH ×4 (07:55→21:12)
[2016-04-14] MEDS: PHENAZOPYRIDINE 200 MG TABLET. PO SCH ×3 (07:56→21:12)
[2016-04-14] MEDS: SENNOSIDES/DOCUSATE 8.6/50MG TABLET. PO SCH (07:56)
[2016-04-14] MEDS: CALCIUM CARB/VIT D3 500/200 TABLET PO SCH (07:56)
[2016-04-14] MEDS: STRIVERDI RESPIMAT INH SCH (07:57)
[2016-04-14] MEDS: LISINOPRIL 20 MG TABLET PO SCH (08:00)
[2016-04-14] MEDS: METOPROLOL SUCC 24HR ER 50 MG TAB.ER.24H. PO SCH (08:01)
[2016-04-14] MEDS: IPRATRPIUM/ALBUTEROL 0.5/2.5MG 3 ML NEBU. NEB SCH ×4 (08:13→19:42)
--- NOTE | 2016-04-14 09:11 | PDOC ---
PULMONARY PROGRESS NOTES Subjective is tired, has sob, cough, better, sputum, runny nose, back pain Vitals Vital Signs Date Time Temp Pulse Resp B/P Pulse Ox O2 Delivery O2 Flow Rate FiO2 04/14/16 08:29 97.7 81 16 112/71 98 Nasal Cannula 4.0 97.7 Comments ros as mentioned as above other sys otherwise neg ROS: No Nausea General: Alert, Oriented X4 HEENT: Other (nc at perrl, poor dentition, nose inflamed mucosa) Lungs: Crackles, Other (deminished) Cardiovascular: S1, S2 Abdomen: Soft, Non-tender Neuro Exam: Alert Extremities: No Edema Skin: Warm Labs Laboratory Tests Test 04/12/16 11:15 White Blood Count 2.9x10^3/uL (4.0-11.0) Red Blood Count 2.69x10^6/uL (4.30-5.70) Hemoglobin 8.6g/dL (13.0-17.5) Hematocrit 28.2% (39.0-53.0) Mean Corpuscular Volume 105fL (79-100) Mean Corpuscular Hemoglobin 32pg (25-35) Mean Corpuscular Hemoglobin Concent 31g/dL (31-37) Red Cell Distribution Width 14.4% (11.5-14.5) Platelet Count 133x10^3/uL (140-400) Neutrophils (%) (Auto) 80% (31-73) Lymphocytes (%) (Auto) 13% (24-48) Monocytes (%) (Auto) 7% (0-9) Eosinophils (%) (Auto) 0% (0-3) Basophils (%) (Auto) 0% (0-3) Neutrophils # (Auto) 2.3x10^3uL (1.8-7.7) Lymphocytes # (Auto) 0.4x10^3/uL (1.0-4.8) Monocytes # (Auto) 0.2x10^3/uL (0.0-1.1) Eosinophils # (Auto) 0.0x10^3/uL (0.0-0.7) Basophils # (Auto) 0.0x10^3/uL (0.0-0.2) Prothrombin Time 15.5SEC (11.7-14.0) Prothromb Time International Ratio 1.3 (0.8-1.1) Sodium Level 151mmol/L (136-145) Potassium Level 4.2mmol/L (3.5-5.1) Chloride Level 104mmol/L (98-107) Carbon Dioxide Level > 45mmol/L (21-32) Anion Gap (6-14) Blood Urea Nitrogen 26mg/dL (8-26) Creatinine 0.8mg/dL (0.7-1.3) Estimated GFR (Cockcroft-Gault) 114.7 Glucose Level 179mg/dL (70-99) Calcium Level 9.0mg/dL (8.5-10.1) Phosphorus Level 4.1mg/dL (2.6-4.7) Magnesium Level 2.1mg/dL (1.8-2.4) Albumin 3.2g/dL (3.4-5.0) Medications Active Scripts Medications Dose Route/Sig Days Date Category Nutritional Shake (Lactose-Reduced Food) 237 Ml Liquid 237 Ml PO BID 04/12/16 Reported Calcium 500 + Vit D 200 Tablet (Calcium Carbonate/Vitamin D3) 1 Each Tablet 1 Each PO 04/12/16 Reported Furosemide 20 Mg Tablet 10 Mg PO PRN PRN 04/12/16 Reported Polyethylene Glycol 3350 17 Gm Powd.pack 17 Gm PO PRN DAILY PRN 04/12/16 Reported Phenazopyridine Hcl 200 Mg Tablet 1 Tab PO TID 04/12/16 Reported Striverdi Respimat (Olodaterol HCl) 4 Gm Mist.inhal 4 Gm IH DAILY 04/12/16 Reported Metoprolol Succinate 50 Mg Tab.er.24h 25 Mg PO 04/12/16 Reported Lisinopril 20 Mg Tablet 1 Tab PO DAILY 04/12/16 Reported Lidocaine Hcl 5 Ml Jel..ml. 5 Ml MM PRN Q4HRS PRN 04/12/16 Reported Senna-Docusate Sodium Tablet (Sennosides/Docusate Sodium) 1 Each Tablet 1 Each PO 04/12/16 Reported Vitamin D-3 (Cholecalciferol (Vitamin D3)) 2,000 Unit Tablet 1,000 Unit PO 04/12/16 Reported Atorvastatin Calcium 20 Mg Tablet 1 Tab PO DAILY 04/12/16 Reported Eliquis (Apixaban) 5 Mg Tablet 5 Mg PO BID 04/12/16 Reported Albuterol Sulfate Conc Neb Soln (Albuterol Sulfate) 2.5 Mg/0.5 Ml Vial.neb 1 Vial NEB PRN QID PRN 04/12/16 Reported Proair Hfa Inhaler (Albuterol Sulfate) 8.5 Gm Hfa.aer.ad 1 Puff INH PRN QID PRN 04/12/16 Reported Tudorza Pressair (Aclidinium [place]) 400 Mcg Aer.pow.ba 400 Mcg IH BID 04/12/[address] of chest reviewed, No acute finding seen. Extensive emphysematous changes in the lungs. Scattered areas of volume loss in the lungs likely reflect compressive atelectasis and scar. Superimposed pneumonia in the left lower lobe is not entirely excluded Solitary 6 mm pulmonary nodule in left upper Impression . IMPRESSION: 1. Abnormal x-ray and ct of chest 2. pneumonia. 3. Chronic respiratory failure. 4. Significant weight loss, body mass index of 15.1. 5. Moderate protein malnutrition, present upon admission. 6. Leukopenia. Plan . PLAN: 1. Recommend continue current antibiotics and nebulized treatments. 2. ct of chest reviewed, needs ful ct for nirali nodule in 3 mon. . 3. Consult dietitian for malnutrition. 4. Continue oxygen supplementation. 5. on eliquis, monitor for bleeding 6. bronchodilator 7. add pepcid for gi prophylaxis discussed w pt and EMILEE Wong MD Apr 14, 2016 09:11
--- NOTE | 2016-04-14 11:22 | PDOC ---
PROGRESS NOTES Chief Complaint Chief Complaint 1. CAP needing inpt management 2. Atrial fib in MVR /RVR intermittently on elliquis, chronic 3. 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 COnstipation 6. UTI 7. 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 LALO, vasomotor 10. PAncytopenia from sepsis? 11. Thrombocytopenia on elliquis History of Present Illness History of Present Illness NO more blood tinged UO and blood in meatus VS ok hgb, platelets, WBC all low side Pt no more SOA< no fevers BAck pain per other notes Does not report to me any, worked with PT PT recs SNU PLAn: SW for SNU screen MOnitor back pain - if issues arise might need physiatry Pancytopenia sec to sepsis? might consider heme onc if gets worse COnt antibiotics May resume eliquis - monitor hematuria dw RN and pt Vitals Vitals Vital Signs Date Time Temp Pulse Resp B/P Pulse Ox O2 Delivery O2 Flow Rate FiO2 04/14/16 08:29 97.7 81 16 112/71 98 Nasal Cannula 4.0 97.7 Physical Exam General: Alert Lungs: Crackles, Other (deminished) Abdomen: Normal bowel sounds, Soft, No tenderness, No hepatosplenomegaly, No masses Extremities: No clubbing, No cyanosis, No edema, Normal pulses, No tenderness/ swelling Skin: No rashes, No breakdown, No significant lesion Review of Systems Review of Systems hematuria, back pain, no soa, some cough Assessment and Plan Assessmemt and Plan Problems Medical Problems: (1) Pneumonia Status: Acute Problems: Comment Review of Relevant I have reviewed the following items leonie (where applicable) has been applied. Labs Microbiology 04/13/16 Gram Stain - Final, Complete 04/12/16 Urine Culture - Preliminary, Resulted 04/12/16 Urine Culture Result 1 (KAREN) - Preliminary, Resulted Medications Current Medications Ondansetron HCl (Zofran) 4 mg PRN Q6HRS PRN IV NAUSEA/VOMITING 1ST CHOICE; Start 04/12/16 at 10:15 Prochlorperazine Edisylate (Compazine) 10 mg PRN Q6HRS PRN IV NAUSEA/VOMITING 2ND CHOICE; Start 04/12/16 at 10:15 Prochlorperazine (Compazine) 25 mg PRN Q12HR PRN AR NAUSEA/VOMITING; Start at 10:15 Al Hydrox/Mg Hydrox/Simethicone (Mylanta Plus Xs) 30 ml PRN Q3HRS PRN PO HEARTBURN / GAS; Start 04/12/16 at 10:15 Calcium Carbonate/ Glycine (Tums) 500 mg PRN Q3HRS PRN PO UPSET STOMACH; Start 04/12/16 at 10:15 Oxycodone HCl (Roxicodone) 5 mg PRN Q3HRS PRN PO BREAKTHROUGH PAIN; Start 04/12 at 10:15 Morphine Sulfate 1 mg PRN Q1HR PRN IV PAIN; Start 04/12/16 at 10:15 Magnesium Hydroxide (Milk Of Magnesia) 2,400 mg PRN Q12HR PRN PO CONSTIPATION; Start 04/12/16 at 10:15 Lactulose 20 gm PRN Q12HR PRN PO CONSTIPATION; Start 04/12/16 at 10:15 Bisacodyl (Dulcolax Supp) 10 mg PRN DAILY PRN AR CONSTIPATION; Start 04/12/16 at 10:15 Apixaban (Eliquis) 5 mg BID PO Last administered on 04/13/16 09:27; Start at 10:30; Stop 04/13/16 at 14:44; Status DC Atorvastatin Calcium (Lipitor) 20 mg QHS PO Last administered on 04/13/16 21: 38; Start 04/12/16 at 21:00 Calcium/Vitamin D (Oscal D 500mg/ 200uts) 1 tab DAILY PO Last administered on 07:56; Start 04/12/16 at 11:00 Furosemide (Lasix) 10 mg DAILY PRN PO Fluid retention; Start 04/12/16 at 10:15 ; Stop 04/12/16 at 10:15; Status DC Lidocaine HCl (Xylocaine 2% Topical 5gm Tube) 1 belkys PRN Q4HRS PRN TP PAIN; Start 04/12/16 at 10:15 Lisinopril (Prinivil) 20 mg DAILY PO Last administered on 04/14/16 08:00; Start 04/12/16 at 10:30 Metoprolol Succinate (Toprol Xl) 25 mg DAILY PO Last administered on 04/14/16 08:01; Start 04/12/16 at 10:30 Phenazopyridine HCl (Pyridium) 200 mg TID PO Last administered on 04/14/16 07: 56; Start 04/12/16 at 14:00 Polyethylene Glycol (miraLAX PACKET) 17 gm PRN DAILY PRN PO CONSTIPATION; Start 04/12/16 at 10:15 Senna/Docusate Sodium (Senna Plus) 1 tab DAILY PO Last administered on 07:56; Start 04/12/16 at 10:30 Non-Formulary Medication 400 mcg BID IH ; Start 04/12/16 at 21:00; Status UNV Non-Formulary Medication 1 vial PRN QID PRN NEB SHORTNESS OF BREATH; Start at 10:15; Stop 04/12/16 at 10:36; Status DC Non-Formulary Medication 1 puff PRN QID PRN INH SHORTNESS OF BREATH; Start at 10:15; Stop 04/12/16 at 10:36; Status DC Non-Formulary Medication 237 ml BID PO ; Start 04/12/16 at 21:00; Stop 04/12/16 at 21:00; Status DC Non-Formulary Medication 4 gm DAILY IH ; Start 04/13/16 at 09:00; Stop 04/13/16 at 09:00; Status DC Info (Anti-Coagulation Monitoring By Pharmacy) 1 each PRN DAILY PRN MC SEE COMMENTS Last administered on 04/13/16 11:07; Start 04/12/16 at 10:30 Albuterol/ Ipratropium (Duoneb) 3 ml RTQID NEB ; Start 04/12/16 at 12:00; Status UNV Albuterol Sulfate 2.5 mg 2.5 mg PRN Q6HRS PRN NEB SHORTNESS OF BREATH; Start at 10:45 Levofloxacin/ Dextrose (LEVAQUIN 500mg PREMIX) 100 ml @ 100 mls/hr Q24H IV Last administered on 04/12/16 17:11; Start 04/12/16 at 14:00; Stop 04/13/16 at 11:06; Status DC Guaifenesin (Robitussin) 200 mg QID PO Last administered on 04/14/16 07:55; Start 04/12/16 at 17:00 Albuterol/ Ipratropium (Duoneb) 3 ml RTQID NEB Last administered on 04/14/16 08:13; Start 04/12/16 at 16:00 Non-Formulary Medication 1 ea 1 ea DAILY INH Last administered on 04/14/16 07: 57; Start 04/13/16 at 09:00 Levofloxacin/ Dextrose (LEVAQUIN 250mg PREMIX) 50 ml @ 50 mls/hr Q24H IV Last administered on 04/13/16 17:42; Start 04/13/16 at 17:00 Lidocaine (Lidoderm) 1 patch DAILY TD Last administered on 04/14/16 07:53; Start 04/13/16 at 14:45 Famotidine (Pepcid) 20 mg DAILY PO ; Start 04/15/16 at 09:00 Active Scripts Active Reported Nutritional Shake (Lactose-Reduced Food) 237 Ml Liquid 237 Ml PO BID Calcium 500 + Vit D 200 Tablet (Calcium Carbonate/Vitamin D3) 1 Each Tablet 1 Each PO Furosemide 20 Mg Tablet 10 Mg PO PRN PRN Polyethylene Glycol 3350 17 Gm Powd.pack 17 Gm PO PRN DAILY PRN Phenazopyridine Hcl 200 Mg Tablet 1 Tab PO TID Striverdi Respimat (Olodaterol HCl) 4 Gm Mist.inhal 4 Gm IH DAILY Metoprolol Succinate 50 Mg Tab.er.24h 25 Mg PO Lisinopril 20 Mg Tablet 1 Tab PO DAILY Lidocaine Hcl 5 Ml Jel..ml. 5 Ml MM PRN Q4HRS PRN Senna-Docusate Sodium Tablet (Sennosides/Docusate Sodium) 1 Each Tablet 1 Each PO Vitamin D-3 (Cholecalciferol (Vitamin D3)) 2,000 Unit Tablet 1,000 Unit PO Atorvastatin Calcium 20 Mg Tablet 1 Tab PO DAILY Eliquis (Apixaban) 5 Mg Tablet 5 Mg PO BID Albuterol Sulfate Conc Neb Soln (Albuterol Sulfate) 2.5 Mg/0.5 Ml Vial.neb 1 Vial NEB PRN QID PRN Proair Hfa Inhaler (Albuterol Sulfate) 8.5 Gm Hfa.aer.ad 1 Puff INH PRN QID PRN Tudorza Pressair (Aclidinium [place]) 400 Mcg Aer.pow.ba 400 Mcg IH BID Vitals/I & O Vital Sign - Last 24 Hours 2/1804/13/16 04/13/16 04/13/16 11:50 11:56 15:00 16:53 Temp 98.1 97.7 98.1 97.7 Pulse 70 77 Resp 16 16 B/P 96/57 104/59 Pulse Ox 96 100 96 O2 Delivery Nasal Cannula Nasal Cannula Nasal Cannula Nasal Cannula O2 Flow Rate 4.0 4.0 4.0 4.0 04/13/16 04/13/16 04/13/16 04/13/16 19:15 20:00 20:17 23:20 Temp 98.1 98.1 98.1 98.1 Pulse 83 78 Resp 16 16 B/P 102/57 102/58 Pulse Ox 97 100 94 O2 Delivery Nasal Cannula Nasal Cannula Nasal Cannula Nasal Cannula O2 Flow Rate 4.0 4.0 4.0 4.0 04/14/16 04/14/16 04/14/16 04/14/16 03:15 07:00 08:00 08:01 Temp 98.1 97.7 98.1 97.7 Pulse 81 81 81 81 Resp 16 16 B/P 104/59 112/71 112/71 112/72 Pulse Ox 99 98 O2 Delivery Nasal Cannula Nasal Cannula O2 Flow Rate 4.0 4.0 04/14/16 04/14/16 04/14/16 08:08 08:14 08:29 Temp 97.7 97.7 Pulse 81 Resp 16 B/P 112/71 Pulse Ox 95 98 O2 Delivery Nasal Cannula Nasal Cannula Nasal Cannula O2 Flow Rate 4.0 4.0 4.0 Intake and Output 04/13/16 04/13/16 04/14/16 15:00 23:00 07:00 Intake Total 300 ml Output Total 600 ml 600 ml Balance -300 ml -600 ml GREYSON SMILEY MD Apr 14, 2016 11:22
[2016-04-14] MEDS: APIXABAN 5 MG TABLET. PO SCH ×2 (13:02→21:12)
[2016-04-14] MEDS: ATORVASTATIN CALCIUM 20 MG TABLET PO SCH (21:12)
[2016-04-15 03:15] VITALS: BP 126/59
[2016-04-15] MEDS: IPRATRPIUM/ALBUTEROL 0.5/2.5MG 3 ML NEBU. NEB SCH ×4 (06:01→20:40)
[2016-04-15 07:00] VITALS: BP 102/47
[2016-04-15] MEDS: STRIVERDI RESPIMAT INH SCH (09:04)
[2016-04-15] MEDS: PHENAZOPYRIDINE 200 MG TABLET. PO SCH ×3 (09:05→20:32)
[2016-04-15] MEDS: CALCIUM CARB/VIT D3 500/200 TABLET PO SCH (09:05)
[2016-04-15] MEDS: LISINOPRIL 20 MG TABLET PO SCH (09:05)
[2016-04-15] MEDS: GUAIFENESIN 200 MG/10 ML LIQUID. PO SCH ×4 (09:05→20:32)
[2016-04-15] MEDS: FAMOTIDINE 20 MG TABLET. PO SCH (09:05)
[2016-04-15] MEDS: SENNOSIDES/DOCUSATE 8.6/50MG TABLET. PO SCH (09:05)
[2016-04-15] MEDS: APIXABAN 5 MG TABLET. PO SCH (09:05)
[2016-04-15] MEDS: METOPROLOL SUCC 24HR ER 50 MG TAB.ER.24H. PO SCH (09:05)
[2016-04-15] MEDS: LIDOCAINE (700MG/PATCH) PATCH. TD SCH (09:06)
[2016-04-15 10:34] LABS: BASO % 0 % (0-3); EOS % 2 % (0-3); HEMATOCRIT 28.3 % (39.0-53.0); HEMOGLOBIN 8.9 g/dL (13.0-17.5); LYMPH # 1.4 x10^3/uL (1.0-4.8); LYMPH % 38 % (24-48); MEAN CORPUSCULAR HEMOGLOBIN 32 pg (25-35); MEAN CORPUSCULAR HGB CONC 31 g/dL (31-37); MEAN CORPUSCULAR VOLUME 102 fL (79-100); MONO % 15 % (0-9); NEUT % 45 % (31-73); PLATELET COUNT 157 x10^3/uL (140-400); RED BLOOD COUNT 2.77 x10^6/uL (4.30-5.70); RED CELL DISTRIBUTION WIDTH 14.1 % (11.5-14.5); WHITE BLOOD COUNT 3.8 x10^3/uL (4.0-11.0)
[2016-04-15 10:43] LABS: BLOOD UREA NITROGEN 20 mg/dL (8-26); CALCIUM 8.8 mg/dL (8.5-10.1); CHLORIDE 103 mmol/L (98-107); CREATININE 0.6 mg/dL (0.7-1.3); GFR 159.8; GLUCOSE 113 mg/dL (70-99); POTASSIUM 3.9 mmol/L (3.5-5.1); SODIUM 147 mmol/L (136-145)
[2016-04-15 10:46] LABS: CARBON DIOXIDE > 45 mmol/L (21-32)
[2016-04-15 10:54] VITALS: BP 120/66
--- NOTE | 2016-04-15 12:32 | PDOC ---
PROGRESS NOTES Chief Complaint Chief Complaint 1. CAP needing inpt management 2. Atrial fib in MVR /RVR intermittently on elliquis, chronic 3. 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 COnstipation 6. UTI 7. 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 LALO, vasomotor 10. PAncytopenia from sepsis? 11. Thrombocytopenia on elliquis History of Present Illness History of Present Illness Blood tinged UO Eliquis resumed yesterday NO fevers No white ct Saliva is the specimen not sputum\ Pt claims breathing better HE is more concerned with bloody urine Screened positive for sepsis NO evidence UTI on UA PLAN: COnt iv levaquin BC today SW SNU - pt does not want to go to snu, might be encouraged? (pT recs SNU) dc elliquis for now MAintain khan LAbs irina Vitals Vitals Vital Signs Date Time Temp Pulse Resp B/P Pulse Ox O2 Delivery O2 Flow Rate FiO2 04/15/16 11:04 97 Nasal Cannula 4.0 04/15/16 10:54 98.3 74 19 120/66 98.3 Physical Exam General: Alert Lungs: Crackles, Other (deminished) Abdomen: Normal bowel sounds, Soft, No tenderness, No hepatosplenomegaly, No masses Extremities: No clubbing, No cyanosis, No edema, Normal pulses, No tenderness/ swelling Skin: No rashes, No breakdown, No significant lesion Labs LABS Laboratory Tests Test 04/15/16 09:55 White Blood Count 3.8x10^3/uL (4.0-11.0) Red Blood Count 2.77x10^6/uL (4.30-5.70) Hemoglobin 8.9g/dL (13.0-17.5) Hematocrit 28.3% (39.0-53.0) Mean Corpuscular Volume 102fL (79-100) Mean Corpuscular Hemoglobin 32pg (25-35) Mean Corpuscular Hemoglobin Concent 31g/dL (31-37) Red Cell Distribution Width 14.1% (11.5-14.5) Platelet Count 157x10^3/uL (140-400) Neutrophils (%) (Auto) 45% (31-73) Lymphocytes (%) (Auto) 38% (24-48) Monocytes (%) (Auto) 15% (0-9) Eosinophils (%) (Auto) 2% (0-3) Basophils (%) (Auto) 0% (0-3) Neutrophils # (Auto) 1.7x10^3uL (1.8-7.7) Lymphocytes # (Auto) 1.4x10^3/uL (1.0-4.8) Monocytes # (Auto) 0.6x10^3/uL (0.0-1.1) Eosinophils # (Auto) 0.1x10^3/uL (0.0-0.7) Basophils # (Auto) 0.0x10^3/uL (0.0-0.2) Sodium Level 147mmol/L (136-145) Potassium Level 3.9mmol/L (3.5-5.1) Chloride Level 103mmol/L (98-107) Carbon Dioxide Level > 45mmol/L (21-32) Anion Gap (6-14) Blood Urea Nitrogen 20mg/dL (8-26) Creatinine 0.6mg/dL (0.7-1.3) Estimated GFR (Cockcroft-Gault) 159.8 Glucose Level 113mg/dL (70-99) Calcium Level 8.8mg/dL (8.5-10.1) Review of Systems Review of Systems bloody urine, no inc in soa or cough Assessment and Plan Assessmemt and Plan Problems Medical Problems: (1) Pneumonia Status: Acute Problems: Comment Review of Relevant I have reviewed the following items leonie (where applicable) has been applied. Labs Laboratory Tests Test 04/15/16 09:55 White Blood Count 3.8x10^3/uL (4.0-11.0) Red Blood Count 2.77x10^6/uL (4.30-5.70) Hemoglobin 8.9g/dL (13.0-17.5) Hematocrit 28.3% (39.0-53.0) Mean Corpuscular Volume 102fL (79-100) Mean Corpuscular Hemoglobin 32pg (25-35) Mean Corpuscular Hemoglobin Concent 31g/dL (31-37) Red Cell Distribution Width 14.1% (11.5-14.5) Platelet Count 157x10^3/uL (140-400) Neutrophils (%) (Auto) 45% (31-73) Lymphocytes (%) (Auto) 38% (24-48) Monocytes (%) (Auto) 15% (0-9) Eosinophils (%) (Auto) 2% (0-3) Basophils (%) (Auto) 0% (0-3) Neutrophils # (Auto) 1.7x10^3uL (1.8-7.7) Lymphocytes # (Auto) 1.4x10^3/uL (1.0-4.8) Monocytes # (Auto) 0.6x10^3/uL (0.0-1.1) Eosinophils # (Auto) 0.1x10^3/uL (0.0-0.7) Basophils # (Auto) 0.0x10^3/uL (0.0-0.2) Sodium Level 147mmol/L (136-145) Potassium Level 3.9mmol/L (3.5-5.1) Chloride Level 103mmol/L (98-107) Carbon Dioxide Level > 45mmol/L (21-32) Anion Gap (6-14) Blood Urea Nitrogen 20mg/dL (8-26) Creatinine 0.6mg/dL (0.7-1.3) Estimated GFR (Cockcroft-Gault) 159.8 Glucose Level 113mg/dL (70-99) Calcium Level 8.8mg/dL (8.5-10.1) Laboratory Tests Test 04/15/16 09:55 White Blood Count 3.8x10^3/uL (4.0-11.0) Red Blood Count 2.77x10^6/uL (4.30-5.70) Hemoglobin 8.9g/dL (13.0-17.5) Hematocrit 28.3% (39.0-53.0) Mean Corpuscular Volume 102fL (79-100) Mean Corpuscular Hemoglobin 32pg (25-35) Mean Corpuscular Hemoglobin Concent 31g/dL (31-37) Red Cell Distribution Width 14.1% (11.5-14.5) Platelet Count 157x10^3/uL (140-400) Neutrophils (%) (Auto) 45% (31-73) Lymphocytes (%) (Auto) 38% (24-48) Monocytes (%) (Auto) 15% (0-9) Eosinophils (%) (Auto) 2% (0-3) Basophils (%) (Auto) 0% (0-3) Neutrophils # (Auto) 1.7x10^3uL (1.8-7.7) Lymphocytes # (Auto) 1.4x10^3/uL (1.0-4.8) Monocytes # (Auto) 0.6x10^3/uL (0.0-1.1) Eosinophils # (Auto) 0.1x10^3/uL (0.0-0.7) Basophils # (Auto) 0.0x10^3/uL (0.0-0.2) Sodium Level 147mmol/L (136-145) Potassium Level 3.9mmol/L (3.5-5.1) Chloride Level 103mmol/L (98-107) Carbon Dioxide Level > 45mmol/L (21-32) Anion Gap (6-14) Blood Urea Nitrogen 20mg/dL (8-26) Creatinine 0.6mg/dL (0.7-1.3) Estimated GFR (Cockcroft-Gault) 159.8 Glucose Level 113mg/dL (70-99) Calcium Level 8.8mg/dL (8.5-10.1) Microbiology 04/13/16 Gram Stain - Final, Complete 04/12/16 Urine Culture - Final, Complete 04/12/16 Urine Culture Result 1 (KAREN) - Final, Complete Medications Current Medications Ondansetron HCl (Zofran) 4 mg PRN Q6HRS PRN IV NAUSEA/VOMITING 1ST CHOICE; Start 04/12/16 at 10:15 Prochlorperazine Edisylate (Compazine) 10 mg PRN Q6HRS PRN IV NAUSEA/VOMITING 2ND CHOICE; Start 04/12/16 at 10:15 Prochlorperazine (Compazine) 25 mg PRN Q12HR PRN AR NAUSEA/VOMITING; Start at 10:15 Al Hydrox/Mg Hydrox/Simethicone (Mylanta Plus Xs) 30 ml PRN Q3HRS PRN PO HEARTBURN / GAS; Start 04/12/16 at 10:15 Calcium Carbonate/ Glycine (Tums) 500 mg PRN Q3HRS PRN PO UPSET STOMACH; Start 04/12/16 at 10:15 Oxycodone HCl (Roxicodone) 5 mg PRN Q3HRS PRN PO BREAKTHROUGH PAIN; Start 04/12 at 10:15 Morphine Sulfate 1 mg PRN Q1HR PRN IV PAIN; Start 04/12/16 at 10:15 Magnesium Hydroxide (Milk Of Magnesia) 2,400 mg PRN Q12HR PRN PO CONSTIPATION; Start 04/12/16 at 10:15 Lactulose 20 gm PRN Q12HR PRN PO CONSTIPATION; Start 04/12/16 at 10:15 Bisacodyl (Dulcolax Supp) 10 mg PRN DAILY PRN AR CONSTIPATION; Start 04/12/16 at 10:15 Apixaban (Eliquis) 5 mg BID PO Last administered on 04/13/16 09:27; Start at 10:30; Stop 04/13/16 at 14:44; Status DC Atorvastatin Calcium (Lipitor) 20 mg QHS PO Last administered on 04/14/16 21: 12; Start 04/12/16 at 21:00 Calcium/Vitamin D (Oscal D 500mg/ 200uts) 1 tab DAILY PO Last administered on 09:05; Start 04/12/16 at 11:00 Furosemide (Lasix) 10 mg DAILY PRN PO Fluid retention; Start 04/12/16 at 10:15 ; Stop 04/12/16 at 10:15; Status DC Lidocaine HCl (Xylocaine 2% Topical 5gm Tube) 1 belkys PRN Q4HRS PRN TP PAIN; Start 04/12/16 at 10:15 Lisinopril (Prinivil) 20 mg DAILY PO Last administered on 04/15/16 09:05; Start 04/12/16 at 10:30 Metoprolol Succinate (Toprol Xl) 25 mg DAILY PO Last administered on 04/15/16 09:05; Start 04/12/16 at 10:30 Phenazopyridine HCl (Pyridium) 200 mg TID PO Last administered on 04/15/16 09: 05; Start 04/12/16 at 14:00 Polyethylene Glycol (miraLAX PACKET) 17 gm PRN DAILY PRN PO CONSTIPATION; Start 04/12/16 at 10:15 Senna/Docusate Sodium (Senna Plus) 1 tab DAILY PO Last administered on 09:05; Start 04/12/16 at 10:30 Non-Formulary Medication 400 mcg BID IH ; Start 04/12/16 at 21:00; Status UNV Non-Formulary Medication 1 vial PRN QID PRN NEB SHORTNESS OF BREATH; Start at 10:15; Stop 04/12/16 at 10:36; Status DC Non-Formulary Medication 1 puff PRN QID PRN INH SHORTNESS OF BREATH; Start at 10:15; Stop 04/12/16 at 10:36; Status DC Non-Formulary Medication 237 ml BID PO ; Start 04/12/16 at 21:00; Stop 04/12/16 at 21:00; Status DC Non-Formulary Medication 4 gm DAILY IH ; Start 04/13/16 at 09:00; Stop 04/13/16 at 09:00; Status DC Info (Anti-Coagulation Monitoring By Pharmacy) 1 each PRN DAILY PRN MC SEE COMMENTS Last administered on 04/13/16 11:07; Start 04/12/16 at 10:30 Albuterol/ Ipratropium (Duoneb) 3 ml RTQID NEB ; Start 04/12/16 at 12:00; Status UNV Albuterol Sulfate 2.5 mg 2.5 mg PRN Q6HRS PRN NEB SHORTNESS OF BREATH; Start at 10:45 Levofloxacin/ Dextrose (LEVAQUIN 500mg PREMIX) 100 ml @ 100 mls/hr Q24H IV Last administered on 04/12/16 17:11; Start 04/12/16 at 14:00; Stop 04/13/16 at 11:06; Status DC Guaifenesin (Robitussin) 200 mg QID PO Last administered on 04/15/16 09:05; Start 04/12/16 at 17:00 Albuterol/ Ipratropium (Duoneb) 3 ml RTQID NEB Last administered on 04/15/16 11:04; Start 04/12/16 at 16:00 Non-Formulary Medication 1 ea 1 ea DAILY INH Last administered on 04/15/16 09: 04; Start 04/13/16 at 09:00 Levofloxacin/ Dextrose (LEVAQUIN 250mg PREMIX) 50 ml @ 50 mls/hr Q24H IV Last administered on 04/14/16 17:32; Start 04/13/16 at 17:00 Lidocaine (Lidoderm) 1 patch DAILY TD Last administered on 04/15/16 09:06; Start 04/13/16 at 14:45 Famotidine (Pepcid) 20 mg DAILY PO Last administered on 04/15/16 09:05; Start 04/15/16 at 09:00 Apixaban (Eliquis) 5 mg BID PO Last administered on 04/15/16 09:05; Start at 12:00 Active Scripts Active Reported Nutritional Shake (Lactose-Reduced Food) 237 Ml Liquid 237 Ml PO BID Calcium 500 + Vit D 200 Tablet (Calcium Carbonate/Vitamin D3) 1 Each Tablet 1 Each PO Furosemide 20 Mg Tablet 10 Mg PO PRN PRN Polyethylene Glycol 3350 17 Gm Powd.pack 17 Gm PO PRN DAILY PRN Phenazopyridine Hcl 200 Mg Tablet 1 Tab PO TID Striverdi Respimat (Olodaterol HCl) 4 Gm Mist.inhal 4 Gm IH DAILY Metoprolol Succinate 50 Mg Tab.er.24h 25 Mg PO Lisinopril 20 Mg Tablet 1 Tab PO DAILY Lidocaine Hcl 5 Ml Jel..ml. 5 Ml MM PRN Q4HRS PRN Senna-Docusate Sodium Tablet (Sennosides/Docusate Sodium) 1 Each Tablet 1 Each PO Vitamin D-3 (Cholecalciferol (Vitamin D3)) 2,000 Unit Tablet 1,000 Unit PO Atorvastatin Calcium 20 Mg Tablet 1 Tab PO DAILY Eliquis (Apixaban) 5 Mg Tablet 5 Mg PO BID Albuterol Sulfate Conc Neb Soln (Albuterol Sulfate) 2.5 Mg/0.5 Ml Vial.neb 1 Vial NEB PRN QID PRN Proair Hfa Inhaler (Albuterol Sulfate) 8.5 Gm Hfa.aer.ad 1 Puff INH PRN QID PRN Tudorza Pressair (Aclidinium [place]) 400 Mcg Aer.pow.ba 400 Mcg IH BID Vitals/I & O Vital Sign - Last 24 Hours 04/14/16 04/14/16 04/14/16 04/14/16 15:00 19:20 19:44 20:00 Temp 98.1 98.1 98.1 98.1 Pulse 75 95 Resp B/P 94/55 118/74 Pulse Ox 95 91 94 O2 Delivery Nasal Cannula Nasal Cannula Nasal Cannula Nasal Cannula O2 Flow Rate 4.0 4.0 4.0 4.0 04/14/16 04/15/16 04/15/16 04/15/16 23:10 03:15 06:02 07:00 Temp 97.7 96.3 97.9 97.7 96.3 97.9 Pulse 87 80 93 Resp B/P 124/69 126/59 102/47 Pulse Ox 94 91 96 99 O2 Delivery Nasal Cannula Nasal Cannula Nasal Cannula Nasal Cannula O2 Flow Rate 4.0 4.0 4.0 4.0 04/15/16 04/15/16 04/15/16 04/15/16 08:00 09:05 09:05 10:54 Temp 98.3 98.3 Pulse 93 93 74 Resp 19 B/P 102/47 102/47 120/66 Pulse Ox 96 O2 Delivery Nasal Cannula Nasal Cannula O2 Flow Rate 4.0 4.0 04/15/16 11:04 Pulse Ox 97 O2 Delivery Nasal Cannula O2 Flow Rate 4.0 Intake and Output 04/14/16 04/14/16 04/15/16 15:00 23:00 07:00 Intake Total 500 ml Output Total 640 ml 700 ml Balance -140 ml -700 ml GREYSON SMILEY MD Apr 15, 2016 12:32
[2016-04-15 15:03] VITALS: BP 112/52
--- NOTE | 2016-04-15 18:37 | PDOC ---
PULMONARY PROGRESS NOTES Subjective less soa Vitals Vital Signs Date Time Temp Pulse Resp B/P Pulse Ox O2 Delivery O2 Flow Rate FiO2 04/15/16 15:42 96 Nasal Cannula 4.0 04/15/16 15:03 98.0 78 18 112/52 98.0 ROS: No Nausea, No Chest Pain, No Abdominal Pain, No Increase Cough General: Alert HEENT: Other (nc at perrl, poor dentition, nose inflamed mucosa) Lungs: Clear Cardiovascular: S1, S2 Abdomen: Soft, Non-tender Neuro Exam: Alert Extremities: No Edema Skin: Warm Labs Laboratory Tests Test 04/15/16 09:55 White Blood Count 3.8x10^3/uL (4.0-11.0) Red Blood Count 2.77x10^6/uL (4.30-5.70) Hemoglobin 8.9g/dL (13.0-17.5) Hematocrit 28.3% (39.0-53.0) Mean Corpuscular Volume 102fL (79-100) Mean Corpuscular Hemoglobin 32pg (25-35) Mean Corpuscular Hemoglobin Concent 31g/dL (31-37) Red Cell Distribution Width 14.1% (11.5-14.5) Platelet Count 157x10^3/uL (140-400) Neutrophils (%) (Auto) 45% (31-73) Lymphocytes (%) (Auto) 38% (24-48) Monocytes (%) (Auto) 15% (0-9) Eosinophils (%) (Auto) 2% (0-3) Basophils (%) (Auto) 0% (0-3) Neutrophils # (Auto) 1.7x10^3uL (1.8-7.7) Lymphocytes # (Auto) 1.4x10^3/uL (1.0-4.8) Monocytes # (Auto) 0.6x10^3/uL (0.0-1.1) Eosinophils # (Auto) 0.1x10^3/uL (0.0-0.7) Basophils # (Auto) 0.0x10^3/uL (0.0-0.2) Sodium Level 147mmol/L (136-145) Potassium Level 3.9mmol/L (3.5-5.1) Chloride Level 103mmol/L (98-107) Carbon Dioxide Level > 45mmol/L (21-32) Anion Gap (6-14) Blood Urea Nitrogen 20mg/dL (8-26) Creatinine 0.6mg/dL (0.7-1.3) Estimated GFR (Cockcroft-Gault) 159.8 Glucose Level 113mg/dL (70-99) Calcium Level 8.8mg/dL (8.5-10.1) Laboratory Tests Test 04/15/16 09:55 White Blood Count 3.8x10^3/uL (4.0-11.0) Red Blood Count 2.77x10^6/uL (4.30-5.70) Hemoglobin 8.9g/dL (13.0-17.5) Hematocrit 28.3% (39.0-53.0) Mean Corpuscular Volume 102fL (79-100) Mean Corpuscular Hemoglobin 32pg (25-35) Mean Corpuscular Hemoglobin Concent 31g/dL (31-37) Red Cell Distribution Width 14.1% (11.5-14.5) Platelet Count 157x10^3/uL (140-400) Neutrophils (%) (Auto) 45% (31-73) Lymphocytes (%) (Auto) 38% (24-48) Monocytes (%) (Auto) 15% (0-9) Eosinophils (%) (Auto) 2% (0-3) Basophils (%) (Auto) 0% (0-3) Neutrophils # (Auto) 1.7x10^3uL (1.8-7.7) Lymphocytes # (Auto) 1.4x10^3/uL (1.0-4.8) Monocytes # (Auto) 0.6x10^3/uL (0.0-1.1) Eosinophils # (Auto) 0.1x10^3/uL (0.0-0.7) Basophils # (Auto) 0.0x10^3/uL (0.0-0.2) Sodium Level 147mmol/L (136-145) Potassium Level 3.9mmol/L (3.5-5.1) Chloride Level 103mmol/L (98-107) Carbon Dioxide Level > 45mmol/L (21-32) Anion Gap (6-14) Blood Urea Nitrogen 20mg/dL (8-26) Creatinine 0.6mg/dL (0.7-1.3) Estimated GFR (Cockcroft-Gault) 159.8 Glucose Level 113mg/dL (70-99) Calcium Level 8.8mg/dL (8.5-10.1) Medications Active Scripts Medications Dose Route/Sig Days Date Category Nutritional Shake (Lactose-Reduced Food) 237 Ml Liquid 237 Ml PO BID 04/12/16 Reported Calcium 500 + Vit D 200 Tablet (Calcium Carbonate/Vitamin D3) 1 Each Tablet 1 Each PO 04/12/16 Reported Furosemide 20 Mg Tablet 10 Mg PO PRN PRN 04/12/16 Reported Polyethylene Glycol 3350 17 Gm Powd.pack 17 Gm PO PRN DAILY PRN 04/12/16 Reported Phenazopyridine Hcl 200 Mg Tablet 1 Tab PO TID 04/12/16 Reported Striverdi Respimat (Olodaterol HCl) 4 Gm Mist.inhal 4 Gm IH DAILY 04/12/16 Reported Metoprolol Succinate 50 Mg Tab.er.24h 25 Mg PO 04/12/16 Reported Lisinopril 20 Mg Tablet 1 Tab PO DAILY 04/12/16 Reported Lidocaine Hcl 5 Ml Jel..ml. 5 Ml MM PRN Q4HRS PRN 04/12/16 Reported Senna-Docusate Sodium Tablet (Sennosides/Docusate Sodium) 1 Each Tablet 1 Each PO 04/12/16 Reported Vitamin D-3 (Cholecalciferol (Vitamin D3)) 2,000 Unit Tablet 1,000 Unit PO 04/12/16 Reported Atorvastatin Calcium 20 Mg Tablet 1 Tab PO DAILY 04/12/16 Reported Eliquis (Apixaban) 5 Mg Tablet 5 Mg PO BID 04/12/16 Reported Albuterol Sulfate Conc Neb Soln (Albuterol Sulfate) 2.5 Mg/0.5 Ml Vial.neb 1 Vial NEB PRN QID PRN 04/12/16 Reported Proair Hfa Inhaler (Albuterol Sulfate) 8.5 Gm Hfa.aer.ad 1 Puff INH PRN QID PRN 04/12/16 Reported Tudorza Pressair (Aclidinium Fleming) 400 Mcg Aer.pow.ba 400 Mcg IH BID 04/12/[address] of chest reviewed, No acute finding seen. Extensive emphysematous changes in the lungs. Scattered areas of volume loss in the lungs likely reflect compressive atelectasis and scar. Superimposed pneumonia in the left lower lobe is not entirely excluded Solitary 6 mm pulmonary nodule in left upper Impression . IMPRESSION: 1. Left nodule 2. pneumonia. 3. Chronic respiratory failure. 4. Significant weight loss, body mass index of 15.1. 5. Moderate protein malnutrition, present upon admission. 6. Leukopenia. 7. LAM Plan . Home in am ok follow up in office family wishes BIPAP to be started this joshua apparently pt lost his machine will need a new study as outpt PLAN: 1. Recommend continue current antibiotics and nebulized treatments. 2. ct of chest reviewed, needs ful ct for nirali nodule in 3 mon. . 3. Consult dietitian for malnutrition. 4. Continue oxygen supplementation. 5. on eliquis, monitor for bleeding 6. bronchodilator 7. add pepcid for gi prophylaxis FAHAD BOATENG MD Apr 15, 2016 18:37
[2016-04-15 19:21] VITALS: BP 109/68
[2016-04-15] MEDS: ATORVASTATIN CALCIUM 20 MG TABLET PO SCH (20:32)
[2016-04-15 23:31] VITALS: BP 117/66
[2016-04-16 03:00] VITALS: BP 129/75
[2016-04-16] MEDS: ALBUTEROL SULFATE 2.5 MG/3 ML NEBU. NEB PRN (05:07)
[2016-04-16 07:00] VITALS: BP 102/66
[2016-04-16] MEDS: IPRATRPIUM/ALBUTEROL 0.5/2.5MG 3 ML NEBU. NEB SCH ×4 (08:42→20:06)
[2016-04-16 08:53] LABS: BASO % 0 % (0-3); EOS % 2 % (0-3); HEMATOCRIT 30.3 % (39.0-53.0); HEMOGLOBIN 9.2 g/dL (13.0-17.5); LYMPH # 1.3 x10^3/uL (1.0-4.8); LYMPH % 34 % (24-48); MEAN CORPUSCULAR HEMOGLOBIN 32 pg (25-35); MEAN CORPUSCULAR HGB CONC 31 g/dL (31-37); MEAN CORPUSCULAR VOLUME 105 fL (79-100); MONO % 12 % (0-9); NEUT % 52 % (31-73); PLATELET COUNT 186 x10^3/uL (140-400); RED BLOOD COUNT 2.88 x10^6/uL (4.30-5.70); RED CELL DISTRIBUTION WIDTH 14.1 % (11.5-14.5); WHITE BLOOD COUNT 3.8 x10^3/uL (4.0-11.0)
--- NOTE | 2016-04-16 08:58 | PDOC ---
PULMONARY PROGRESS NOTES Subjective no increase soa Vitals Vital Signs Date Time Temp Pulse Resp B/P Pulse Ox O2 Delivery O2 Flow Rate FiO2 04/16/16 08:42 96 Nasal Cannula 4.0 04/16/16 07:00 97.9 53 18 102/66 97.9 ROS: No Nausea, No Chest Pain, No Abdominal Pain, No Increase Cough General: Alert HEENT: Other (nc at perrl, poor dentition, nose inflamed mucosa) Lungs: Other (decrease bs) Cardiovascular: S1, S2 Abdomen: Soft, Non-tender Neuro Exam: Alert Extremities: No Edema Skin: Warm Labs Laboratory Tests Test 04/15/16 09:55 White Blood Count 3.8x10^3/uL (4.0-11.0) Red Blood Count 2.77x10^6/uL (4.30-5.70) Hemoglobin 8.9g/dL (13.0-17.5) Hematocrit 28.3% (39.0-53.0) Mean Corpuscular Volume 102fL (79-100) Mean Corpuscular Hemoglobin 32pg (25-35) Mean Corpuscular Hemoglobin Concent 31g/dL (31-37) Red Cell Distribution Width 14.1% (11.5-14.5) Platelet Count 157x10^3/uL (140-400) Neutrophils (%) (Auto) 45% (31-73) Lymphocytes (%) (Auto) 38% (24-48) Monocytes (%) (Auto) 15% (0-9) Eosinophils (%) (Auto) 2% (0-3) Basophils (%) (Auto) 0% (0-3) Neutrophils # (Auto) 1.7x10^3uL (1.8-7.7) Lymphocytes # (Auto) 1.4x10^3/uL (1.0-4.8) Monocytes # (Auto) 0.6x10^3/uL (0.0-1.1) Eosinophils # (Auto) 0.1x10^3/uL (0.0-0.7) Basophils # (Auto) 0.0x10^3/uL (0.0-0.2) Sodium Level 147mmol/L (136-145) Potassium Level 3.9mmol/L (3.5-5.1) Chloride Level 103mmol/L (98-107) Carbon Dioxide Level > 45mmol/L (21-32) Anion Gap (6-14) Blood Urea Nitrogen 20mg/dL (8-26) Creatinine 0.6mg/dL (0.7-1.3) Estimated GFR (Cockcroft-Gault) 159.8 Glucose Level 113mg/dL (70-99) Calcium Level 8.8mg/dL (8.5-10.1) Laboratory Tests Test 04/15/16 09:55 White Blood Count 3.8x10^3/uL (4.0-11.0) Red Blood Count 2.77x10^6/uL (4.30-5.70) Hemoglobin 8.9g/dL (13.0-17.5) Hematocrit 28.3% (39.0-53.0) Mean Corpuscular Volume 102fL (79-100) Mean Corpuscular Hemoglobin 32pg (25-35) Mean Corpuscular Hemoglobin Concent 31g/dL (31-37) Red Cell Distribution Width 14.1% (11.5-14.5) Platelet Count 157x10^3/uL (140-400) Neutrophils (%) (Auto) 45% (31-73) Lymphocytes (%) (Auto) 38% (24-48) Monocytes (%) (Auto) 15% (0-9) Eosinophils (%) (Auto) 2% (0-3) Basophils (%) (Auto) 0% (0-3) Neutrophils # (Auto) 1.7x10^3uL (1.8-7.7) Lymphocytes # (Auto) 1.4x10^3/uL (1.0-4.8) Monocytes # (Auto) 0.6x10^3/uL (0.0-1.1) Eosinophils # (Auto) 0.1x10^3/uL (0.0-0.7) Basophils # (Auto) 0.0x10^3/uL (0.0-0.2) Sodium Level 147mmol/L (136-145) Potassium Level 3.9mmol/L (3.5-5.1) Chloride Level 103mmol/L (98-107) Carbon Dioxide Level > 45mmol/L (21-32) Anion Gap (6-14) Blood Urea Nitrogen 20mg/dL (8-26) Creatinine 0.6mg/dL (0.7-1.3) Estimated GFR (Cockcroft-Gault) 159.8 Glucose Level 113mg/dL (70-99) Calcium Level 8.8mg/dL (8.5-10.1) Medications Active Scripts Medications Dose Route/Sig Days Date Category Nutritional Shake (Lactose-Reduced Food) 237 Ml Liquid 237 Ml PO BID 04/12/16 Reported Calcium 500 + Vit D 200 Tablet (Calcium Carbonate/Vitamin D3) 1 Each Tablet 1 Each PO 04/12/16 Reported Furosemide 20 Mg Tablet 10 Mg PO PRN PRN 04/12/16 Reported Polyethylene Glycol 3350 17 Gm Powd.pack 17 Gm PO PRN DAILY PRN 04/12/16 Reported Phenazopyridine Hcl 200 Mg Tablet 1 Tab PO TID 04/12/16 Reported Striverdi Respimat (Olodaterol HCl) 4 Gm Mist.inhal 4 Gm IH DAILY 04/12/16 Reported Metoprolol Succinate 50 Mg Tab.er.24h 25 Mg PO 04/12/16 Reported Lisinopril 20 Mg Tablet 1 Tab PO DAILY 04/12/16 Reported Lidocaine Hcl 5 Ml Jel..ml. 5 Ml MM PRN Q4HRS PRN 04/12/16 Reported Senna-Docusate Sodium Tablet (Sennosides/Docusate Sodium) 1 Each Tablet 1 Each PO 04/12/16 Reported Vitamin D-3 (Cholecalciferol (Vitamin D3)) 2,000 Unit Tablet 1,000 Unit PO 04/12/16 Reported Atorvastatin Calcium 20 Mg Tablet 1 Tab PO DAILY 04/12/16 Reported Eliquis (Apixaban) 5 Mg Tablet 5 Mg PO BID 04/12/16 Reported Albuterol Sulfate Conc Neb Soln (Albuterol Sulfate) 2.5 Mg/0.5 Ml Vial.neb 1 Vial NEB PRN QID PRN 04/12/16 Reported Proair Hfa Inhaler (Albuterol Sulfate) 8.5 Gm Hfa.aer.ad 1 Puff INH PRN QID PRN 04/12/16 Reported Tudorza Pressair (Aclidinium Confluence) 400 Mcg Aer.pow.ba 400 Mcg IH BID 04/12/[address] of chest reviewed, No acute finding seen. Extensive emphysematous changes in the lungs. Scattered areas of volume loss in the lungs likely reflect compressive atelectasis and scar. Superimposed pneumonia in the left lower lobe is not entirely excluded Solitary 6 mm pulmonary nodule in left upper Impression . 1. Abnormal ct chest with Left upper lobe nodule, nodular scarring LLL, basal atelectasis vs ? pneumonia, severe bullous COPD 2. pneumonia. 3. Chronic respiratory failure. 4. Significant weight loss, body mass index of 15.1. 5. Moderate protein malnutrition, present upon admission. 6. Leukopenia. 7. LAM Plan . 1. Recommend continue current antibiotics and nebulized treatments. 2. ct of chest reviewed, needs full ct for nirali nodule in 3 mon. . 3. Consult dietitian for malnutrition. 4. Continue oxygen supplementation. 5. on eliquis, monitor for bleeding 6. bronchodilator 7. pepcid for gi prophylaxis DAVIAN GUNTER MD Apr 16, 2016 08:58
[2016-04-16] MEDS: CALCIUM CARB/VIT D3 500/200 TABLET PO SCH (09:00)
[2016-04-16] MEDS: LIDOCAINE (700MG/PATCH) PATCH. TD SCH (09:00)
[2016-04-16] MEDS: STRIVERDI RESPIMAT INH SCH (09:00)
[2016-04-16 09:03] LABS: PH ABG 7.31 (7.35-7.45)
[2016-04-16 09:04] LABS: FIO2 ABG 36; HCO3 ABG 44 mmol/L (21-28); PCO2 ABG 89 mmHg (35-46); PO2 ABG 137 mmHg (65-108); SAT O2 ABG 98 % (92-99)
[2016-04-16 09:09] LABS: BLOOD UREA NITROGEN 21 mg/dL (8-26); CALCIUM 8.9 mg/dL (8.5-10.1); CARBON DIOXIDE 45 mmol/L (21-32); CHLORIDE 105 mmol/L (98-107); CREATININE 0.6 mg/dL (0.7-1.3); GFR 159.8; GLUCOSE 105 mg/dL (70-99); POTASSIUM 4.4 mmol/L (3.5-5.1); SODIUM 148 mmol/L (136-145)
--- NOTE | 2016-04-16 09:27 | PDOC2 ---
LITATAYLOR Chica BILLET CUTTER 04/16/16 0927: CARDIAC CONSULT DATE OF CONSULT Date of Consult DATE: 04/16/16 TIME: 09:25 REASON FOR CONSULT Reason for Consult: [place] REFERRING PHYSICIAN Referring Physician: Dr. Barbie Ma SOURCE Source: Chart review, Patient HISTORY OF PRESENT ILLNESS HISTORY OF PRESENT ILLNESS 71 year old male who was diagnosed with LLL pneumonia at the [facility] but transferred to [facility] for care as the [facility] did not have inpatient admission beds. Reports diaphoresis, cold chills and a cough productive of romo sputum. He denies chest pain, palpitations, syncope or lower extremity edema. Has been treated with Eliquis for chronic atrial fibrillation, however, this has been stopped due to hematuria. Yesterday was noted to have NSVT in 3 - 5 beat runs in the setting of normal serum K and Mg levels. Has [facility] ICD and usually follows with Dr. Rivers @ /[facility]. Presented with anemia and leukopenia as well as hypernatremia. Albumin level 3.2. Reason for Visit: NSVT PAST MEDICAL HISTORY Cardiovascular: AFIB, HTN, Hyperlipidemia, Other ([facility] ICD) Pulmonary: Bronchitis, COPD, Pneumonia, Other (LAM) CENTRAL NERVOUS SYSTEM: Other (none) GI: Constipation, Other (severe malnutrition with recent weight loss) Heme/Onc: No pertinent hx Hepatobiliary: No pertinent hx Psych: No pertinent hx Musculoskeletal: Osteoarthritis Rheumatologic: No pertinent hx Infectious disease: No pertinent hx ENT: Sincusitis Renal/: No pertinent hx Endocrine: No pertinent hx Dermatology: No pertinent hx PAST SURGICAL HISTORY Past Surgical History: Pacemaker (ICD - [facility]) FAMILY HISTORY Family History negative for heart disease SOCIAL HISTORY Smoke: Quit (2-3 years ago) ALCOHOL: none Drugs: None Lives: Alone (usually obtains care @ [facility]) ALLERGIES ALLERGIES: Coded Allergies: amiodarone (Unverified Allergy, Intermediate, 04/12/16) melatonin (Unverified Allergy, Intermediate, 04/12/16) mometasone furoate (Unverified Allergy, Intermediate, 04/12/16) tiotropium (Unverified Allergy, Intermediate, 04/12/16) trazodone (Unverified Allergy, Intermediate, 04/12/16) ROS General: YES: Chills, Fatigue, Malaise PSYCHOLOGICAL ROS: No: Anxiety, Behavioral Disorder, Concentration difficultie , Decreased libido, Depression, Disorientation, Hallucinations, Hostility, Irritablity, Memory difficulties, Mood Swings, Obsessive thoughts, Other, Physical abuse, Sexual abuse, Sleep disturbances, Suicidal ideation Eyes: No Blurry vision, No Decreased vision, No Double vision, No Dry eyes, No Excessive tearing, No Eye Pain, No Itchy Eyes, No Loss of vision, No Other, No Photophobia, No Scotomata, No Uses contacts, No Uses glasses HEENT: No: Epistaxis, Heacaches, Hearing change, Nasal congestion, Nasal discharge, Oral lesions, Other, Sinus pain, Sneezing, Snoring, Sore Throat, Tinnitus, Vertigo, Visual Changes, Vocal changes ALLERGY AND IMMUNOLOGY: No: Hives, Insect Bite Sensitivity, Itchy/Watery Eyes, Nasal Congestion, Other, Post Nasal Drip, Seasonal Allergies Hematological and Lymphatic: No: Bleeding Problems, Blood Clots, Blood Transfusions, Brusing, Night Sweats, Other, Pallor, Swollen Lymph Nodes ENDOCRINE: No: Breast Changes, Galactorrhea, Hair Pattern Changes, Hot Flashes , Malaise/lethargy, Mood Swings, Other, Palpitations, Polydipsia/polyuria, Skin Changes, Temperature Intolerance, Unexpected Weight Changes Respiratory: YES: Cough, SOB with excertion, Shortness of breath, Tachypnea Cardiovascular: No Chest Pain, No Edema, No Lt Headedness, No Orthopnea, No Other, No Palpitations, No Paroxysmal Noc. Dyspnea Gastrointestinal: No Abdominal Pain, No Constipation, No Diarrhea, No Hematochezia, No Melena, No Nausea, No Other, No Vomiting Genitourinary: YES Hematuria Musculoskeletal: No Gait Disturbance, No Joint Pain, No Joint Stiffness, No Joint Swelling, No Muscle Pain, No Muscular Weakness, No Other, No Pain In:, No Swelling In: Neurological: No Behavorial Changes, No Bowel/Bladder ControlChng, No Confusion , No Dizziness, No Gait Disturbance, No Headaches, No Impaired Coord/balance, No Memory Loss, No Numbness/Tingling, No Other, No Seizures, No Speech Problems , No Tremors, No Visual Changes, No Weakness Skin: No Acne, No Dry Skin, No Eczema, No Hair Changes, No Lumps, No Mole Changes, No Mottling, No Nail Changes, No Other, No Pruritus, No Rash, No Skin Lesion Changes PHYSICAL EXAM General: Alert, Oriented X3, Cooperative, mild distress, Other (appears cachexic) HEENT: Atraumatic, PERRLA Lungs: Other (severely diminished anteriorly) Heart: Normal S1, Normal S2, No murmurs, Other (no carotid bruits; ICD in left pectoral region with well healed pocket; tele: A-sensed with V-pacing) Abdomen: No tenderness Extremities: No edema, Normal pulses Skin: No rashes Neuro: Normal speech Psych/Mental Status: Mental status NL, Mood NL MUSCULOSKELETAL: Osteoarthritic changes both hands VITALS VITALS Vital Signs Date Time Temp Pulse Resp B/P Pulse Ox O2 Delivery O2 Flow Rate FiO2 04/16/16 08:42 96 Nasal Cannula 4.0 04/16/16 07:00 97.9 53 18 102/66 97.9 LABS Lab: Laboratory Tests Test 04/15/16 09:55 04/16/16 08:11 04/16/16 08:50 White Blood Count 3.8x10^3/uL (4.0-11.0) 3.8x10^3/uL (4.0-11.0) Red Blood Count 2.77x10^6/uL (4.30-5.70) 2.88x10^6/uL (4.30-5.70) Hemoglobin 8.9g/dL (13.0-17.5) 9.2g/dL (13.0-17.5) Hematocrit 28.3% (39.0-53.0) 30.3% (39.0-53.0) Mean Corpuscular Volume 102fL (79-100) 105fL (79-100) Mean Corpuscular Hemoglobin 32pg (25-35) 32pg (25-35) Mean Corpuscular Hemoglobin Concent 31g/dL (31-37) 31g/dL (31-37) Red Cell Distribution Width 14.1% (11.5-14.5) 14.1% (11.5-14.5) Platelet Count 157x10^3/uL (140-400) 186x10^3/uL (140-400) Neutrophils (%) (Auto) 45% (31-73) 52% (31-73) Lymphocytes (%) (Auto) 38% (24-48) 34% (24-48) Monocytes (%) (Auto) 15% (0-9) 12% (0-9) Eosinophils (%) (Auto) 2% (0-3) 2% (0-3) Basophils (%) (Auto) 0% (0-3) 0% (0-3) Neutrophils # (Auto) 1.7x10^3uL (1.8-7.7) 2.0x10^3uL (1.8-7.7) Lymphocytes # (Auto) 1.4x10^3/uL (1.0-4.8) 1.3x10^3/uL (1.0-4.8) Monocytes # (Auto) 0.6x10^3/uL (0.0-1.1) 0.5x10^3/uL (0.0-1.1) Eosinophils # (Auto) 0.1x10^3/uL (0.0-0.7) 0.1x10^3/uL (0.0-0.7) Basophils # (Auto) 0.0x10^3/uL (0.0-0.2) 0.0x10^3/uL (0.0-0.2) Sodium Level 147mmol/L (136-145) 148mmol/L (136-145) Potassium Level 3.9mmol/L (3.5-5.1) 4.4mmol/L (3.5-5.1) Chloride Level 103mmol/L (98-107) 105mmol/L (98-107) Carbon Dioxide Level > 45mmol/L (21-32) 45mmol/L (21-32) Anion Gap (6-14) (6-14) Blood Urea Nitrogen 20mg/dL (8-26) 21mg/dL (8-26) Creatinine 0.6mg/dL (0.7-1.3) 0.6mg/dL (0.7-1.3) Estimated GFR (Cockcroft-Gault) 159.8 159.8 Glucose Level 113mg/dL (70-99) 105mg/dL (70-99) Calcium Level 8.8mg/dL (8.5-10.1) 8.9mg/dL (8.5-10.1) Magnesium Level 2.0mg/dL (1.8-2.4) O2 Saturation 98% (92-99) Arterial Blood pH 7.31 (7.35-7.45) Arterial Blood pCO2 at Patient Temp 89mmHg (35-46) Arterial Blood pO2 at Patient Temp 137mmHg (65-108) Arterial Blood HCO3 44mmol/L (21-28) Arterial Blood Base Excess 14mmol/L (-3-3) FiO2 36 IMAGES IMAGES 04/12/2016: CXR: No previous chest radiographs are available at this time for comparison purposes. A left-sided transvenous pacemaker is in place with 3 leads extending into the heart. The heart is mildly enlarged. The lungs appear hyperexpanded. There are moderately prominent interstitial markings in the lungs. There is a right apical pleural-parenchymal opacity probably due to scarring. No pulmonary consolidation is seen. No pleural fluid is evident. The bony structures are demineralized. IMPRESSION: 1. Mild cardiomegaly. 2. Interstitial prominence in the lungs suggesting fibrosis, interstitial pulmonary edema or a combination of the above. CT chest: CT chest: Findings. The ascending thoracic aorta is at the upper limits of normal in size, 4 cm. Some coronary artery calcification is noted. Significant hilar or mediastinal adenopathy is not seen. There are extensive underlying emphysematous changes. There is volume loss in the left lower lobe and to a lesser extent in the right lower lobe likely reflecting compressive atelectasis. Superimposed pneumonia is not entirely excluded. There are changes at the right lung apex probably reflecting scar. There is some minimal pleural calcification in the right upper lobe. A definite acute parenchymal infiltrate is not seen. There is a 6 mm nodule in the left upper lobe, image [address] abdomen: Findings Imaging is limited as no IV or gastrointestinal contrast was administered. The visualized bowel appears unremarkable. A definite abnormality involving the liver or spleen is not seen. The gallbladder is not well depicted. No definite pancreatic abnormality is seen. There is a low-density mass, measuring approximately 1 cm, associated with the left kidney probably reflecting a cyst. A definite significant finding involving the kidneys is not seen. No definite adrenal pathology is seen. An acute finding in the abdomen is not apparent. IMPRESSION: Limited evaluation of the abdomen. No acute finding seen. Extensive emphysematous changes in the lungs. Scattered areas of volume loss in the lungs likely reflect compressive atelectasis and scar. Superimposed pneumonia in the left lower lobe is not entirely excluded Solitary 6 mm pulmonary nodule in left upper EKG EKG none available for review ASSESSMENT/PLAN ASSESSMENT/PLAN 1. NSVT in the setting of normal serum K and Mg has ICD and appears to be bi-ventricular ICD on CXR - will ask [facility] to interrogate; may consider adding evening dose of BB dependent on interrogation suspect CMP - echo to evaluate LVEF request records from [facility] 2. LLL pneumonia with COPD on abx - per PULM also with 6 mm LLL SPN leukopenic 3. atrial fib currently appears to be sinus underlying on tele with intermittent Bi-V pacing Eliquis on hold due to hematuria interrogate ICD to determine afib burden rate controlled with BB 4. HTN continue meds as controlled 5. HLD continue meds 6. malnutrition recent weight loss dietitian eval pending Problems: KYLE BRISCOE MD 04/17/16 0022: CARDIAC CONSULT ALLERGIES ALLERGIES: Coded Allergies: amiodarone (Unverified Allergy, Intermediate, 04/12/16) melatonin (Unverified Allergy, Intermediate, 04/12/16) mometasone furoate (Unverified Allergy, Intermediate, 04/12/16) tiotropium (Unverified Allergy, Intermediate, 04/12/16) trazodone (Unverified Allergy, Intermediate, 04/12/16) ASSESSMENT/PLAN ASSESSMENT/PLAN Late entry for 04/16/2016 Pt. seen and examined. Agree with above [employer] APPRENTICE note. 71 y.o emaciated male s/p ICD No specific abn noted on CV exam. He is quite thin Reviewed tele with RN. Suspect svt with aberrancy but VT is not out of the possibility given his protoplasm. Supportive care. Poor prognosis. Possible that this is also cardiac cachexia. Will follow along. Problems: TAYLOR LONDON APRN Apr 16, 2016 09:27 KYLE BRISCOE MD Apr 17, 2016 00:22
[2016-04-16] MEDS: PHENAZOPYRIDINE 200 MG TABLET. PO SCH ×3 (09:43→20:46)
[2016-04-16] MEDS: SENNOSIDES/DOCUSATE 8.6/50MG TABLET. PO SCH (09:45)
[2016-04-16] MEDS: METOPROLOL SUCC 24HR ER 50 MG TAB.ER.24H. PO SCH (09:45)
[2016-04-16] MEDS: FAMOTIDINE 20 MG TABLET. PO SCH (09:45)
[2016-04-16] MEDS: CALCIUM CARBONATE 500 MG TAB.CHEW PO PRN (09:46)
[2016-04-16] MEDS: LISINOPRIL 20 MG TABLET PO SCH (09:46)
[2016-04-16] MEDS: GUAIFENESIN 200 MG/10 ML LIQUID. PO SCH ×4 (09:46→20:46)
[2016-04-16 11:00] VITALS: BP 89/54
--- NOTE | 2016-04-16 11:04 | EKG ---
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
--- NOTE | 2016-04-16 12:07 | CARD ---
APPROVED REPORT EXAM: Two-dimensional and M-mode echocardiogram with Doppler and color Doppler. Other Information Quality : Good INDICATION Ventircular Tachycardia Surgery/Intervention ICD/Pacemaker: 2D DIMENSIONS RVDd2.8 (2.9-3.5cm)Left Atrium(2D)2.5 (1.6-4.0cm) IVSd0.8 (0.7-1.1cm)Aortic Root(2D)3.6 (2.0-3.7cm) LVDd6.3 (3.9-5.9cm)LVOT Diameter2.2 (1.8-2.4cm) PWd1.5 (0.7-1.1cm)LVDs5.7 (2.5-4.0cm) FS (%) 5.0 %SV42.0 ml LVEF(%)10.0 (>50%) Aortic Valve AoV Peak Eren.91.0cm/sAoV VTI9.3cm AO Peak GR.3.3mmHgLVOT VTI 9.33cm AO Mean GR.2mmHgAVA (VTI)3.80cm2 Mitral Valve MV E Mjvwnwuy30.2cm/sMV DECEL [id number] MV A Pzuauzpv86.7cm/sE/A Ratio0.9 TDI Lateral E' P. V4.25cm/sMedial E' P. V5.02cm/s E/Lateral E'12.5E/Medial E'10.6 Tricuspid Valve TR P. Kidcqmak938ds/sRAP [id number] TR Peak Gr.[id number] LEFT VENTRICLE The Left Ventricle is mildly dilated. There is mild asymmetric posterial wall hypertrophy. Left ventr icle systolic function is severely impaired. The Ejection Fraction is 10-15%. There is severe global hypokinesis of the left ventricle. Transmitral Doppler flow pattern is Grade I-abnormal relaxation pa ttern. RIGHT VENTRICLE The right ventricle is normal size. The right ventricular systolic function is normal. There is a pac emaker/ICD in the RV/RA ATRIA The left atrium size is normal. The right atrium size is normal. The interatrial septum is intact wit h no evidence for an atrial septal defect or patent foramen ovale as noted on 2-D or Doppler imaging. AORTIC VALVE The aortic valve is calcified but opens well. Doppler and Color Flow revealed trace aortic regurgitat ion. There is no significant aortic valvular stenosis. MITRAL VALVE The mitral valve is calcified but opens well. There is no evidence of mitral valve prolapse. There is no mitral valve stenosis. Doppler and Color-flow revealed mild mitral regurgitation. TRICUSPID VALVE The tricuspid valve is normal in structure and function. Doppler and Color Flow revealed mild tricusp id regurgitation. There is moderate pulmonary hypertension. The PA pressure was estimated at 55 mmHg. There is no tricuspid valve stenosis. PULMONIC VALVE Doppler and Color Flow revealed mild pulmonic valvular regurgitation. There is no pulmonic valvular s tenosis. GREAT VESSELS The aortic root is normal in size. The ascending aorta is normal in size. The IVC is normal in size a nd collapses <50% with inspiration. PERICARDIAL EFFUSION There is no evidence of significant pericardial effusion. Critical Notification Critical Value: No <Conclusion> Left ventricle systolic function is severely impaired. The Ejection Fraction is 10-15%. There is severe global hypokinesis of the left ventricle. Doppler and Color Flow revealed mild tricuspid regurgitation. There is moderate pulmonary hypertensio n. The PA pressure was estimated at 55 mmHg. The IVC is normal in size and collapses <50% with inspiration.
--- NOTE | 2016-04-16 14:05 | PDOC ---
PROGRESS NOTES Chief Complaint Chief Complaint 1. CAP needing inpt management 2. ACUTE HYPERCARBIC RESPI FAILURE NOW NIPPV 2. Atrial fib in MVR /RVR intermittently on elliquis, chronic 3. 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 COnstipation 6. UTI 7. 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 LALO, vasomotor 10. PAncytopenia from sepsis? 11. Thrombocytopenia on elliquis History of Present Illness History of Present Illness On BIPAP now ABG pH 7.31, Co2 89 Blood tinged urine - was on elliquis for chronic atrial fib - being held now PLAN: BIPAP per pulmo FOllow pulmo recs COnt IV BARGER coverage COnt to hold elliquis MOnitor hematuria LAbs irina Vitals Vitals Vital Signs Date Time Temp Pulse Resp B/P Pulse Ox O2 Delivery O2 Flow Rate FiO2 04/16/16 12:42 92 BiPAP/CPAP 04/16/16 11:00 97.7 44 18 89/54 97.7 04/16/16 08:42 4.0 Physical Exam General: Alert, Oriented X3, Cooperative, mild distress, Other (appears cachexic) Heart: Normal S1, Normal S2, No murmurs, Other (no carotid bruits; ICD in left pectoral region with well healed pocket; tele: A-sensed with V-pacing) Lungs: Other (decrease bs) Abdomen: No tenderness Extremities: No edema, Normal pulses Skin: No rashes Labs LABS Laboratory Tests Test 04/16/16 08:11 04/16/16 08:50 White Blood Count 3.8x10^3/uL (4.0-11.0) Red Blood Count 2.88x10^6/uL (4.30-5.70) Hemoglobin 9.2g/dL (13.0-17.5) Hematocrit 30.3% (39.0-53.0) Mean Corpuscular Volume 105fL (79-100) Mean Corpuscular Hemoglobin 32pg (25-35) Mean Corpuscular Hemoglobin Concent 31g/dL (31-37) Red Cell Distribution Width 14.1% (11.5-14.5) Platelet Count 186x10^3/uL (140-400) Neutrophils (%) (Auto) 52% (31-73) Lymphocytes (%) (Auto) 34% (24-48) Monocytes (%) (Auto) 12% (0-9) Eosinophils (%) (Auto) 2% (0-3) Basophils (%) (Auto) 0% (0-3) Neutrophils # (Auto) 2.0x10^3uL (1.8-7.7) Lymphocytes # (Auto) 1.3x10^3/uL (1.0-4.8) Monocytes # (Auto) 0.5x10^3/uL (0.0-1.1) Eosinophils # (Auto) 0.1x10^3/uL (0.0-0.7) Basophils # (Auto) 0.0x10^3/uL (0.0-0.2) Sodium Level 148mmol/L (136-145) Potassium Level 4.4mmol/L (3.5-5.1) Chloride Level 105mmol/L (98-107) Carbon Dioxide Level 45mmol/L (21-32) Anion Gap (6-14) Blood Urea Nitrogen 21mg/dL (8-26) Creatinine 0.6mg/dL (0.7-1.3) Estimated GFR (Cockcroft-Gault) 159.8 Glucose Level 105mg/dL (70-99) Calcium Level 8.9mg/dL (8.5-10.1) Magnesium Level 2.0mg/dL (1.8-2.4) O2 Saturation 98% (92-99) Arterial Blood pH 7.31 (7.35-7.45) Arterial Blood pCO2 at Patient Temp 89mmHg (35-46) Arterial Blood pO2 at Patient Temp 137mmHg (65-108) Arterial Blood HCO3 44mmol/L (21-28) Arterial Blood Base Excess 14mmol/L (-3-3) FiO2 36 Review of Systems Review of Systems limited on bipap Assessment and Plan Assessmemt and Plan Problems Medical Problems: (1) Pneumonia Status: Acute Problems: Comment Review of Relevant I have reviewed the following items leonie (where applicable) has been applied. Labs Laboratory Tests Test 04/15/16 09:55 04/16/16 08:11 04/16/16 08:50 White Blood Count 3.8x10^3/uL (4.0-11.0) 3.8x10^3/uL (4.0-11.0) Red Blood Count 2.77x10^6/uL (4.30-5.70) 2.88x10^6/uL (4.30-5.70) Hemoglobin 8.9g/dL (13.0-17.5) 9.2g/dL (13.0-17.5) Hematocrit 28.3% (39.0-53.0) 30.3% (39.0-53.0) Mean Corpuscular Volume 102fL (79-100) 105fL (79-100) Mean Corpuscular Hemoglobin 32pg (25-35) 32pg (25-35) Mean Corpuscular Hemoglobin Concent 31g/dL (31-37) 31g/dL (31-37) Red Cell Distribution Width 14.1% (11.5-14.5) 14.1% (11.5-14.5) Platelet Count 157x10^3/uL (140-400) 186x10^3/uL (140-400) Neutrophils (%) (Auto) 45% (31-73) 52% (31-73) Lymphocytes (%) (Auto) 38% (24-48) 34% (24-48) Monocytes (%) (Auto) 15% (0-9) 12% (0-9) Eosinophils (%) (Auto) 2% (0-3) 2% (0-3) Basophils (%) (Auto) 0% (0-3) 0% (0-3) Neutrophils # (Auto) 1.7x10^3uL (1.8-7.7) 2.0x10^3uL (1.8-7.7) Lymphocytes # (Auto) 1.4x10^3/uL (1.0-4.8) 1.3x10^3/uL (1.0-4.8) Monocytes # (Auto) 0.6x10^3/uL (0.0-1.1) 0.5x10^3/uL (0.0-1.1) Eosinophils # (Auto) 0.1x10^3/uL (0.0-0.7) 0.1x10^3/uL (0.0-0.7) Basophils # (Auto) 0.0x10^3/uL (0.0-0.2) 0.0x10^3/uL (0.0-0.2) Sodium Level 147mmol/L (136-145) 148mmol/L (136-145) Potassium Level 3.9mmol/L (3.5-5.1) 4.4mmol/L (3.5-5.1) Chloride Level 103mmol/L (98-107) 105mmol/L (98-107) Carbon Dioxide Level > 45mmol/L (21-32) 45mmol/L (21-32) Anion Gap (6-14) (6-14) Blood Urea Nitrogen 20mg/dL (8-26) 21mg/dL (8-26) Creatinine 0.6mg/dL (0.7-1.3) 0.6mg/dL (0.7-1.3) Estimated GFR (Cockcroft-Gault) 159.8 159.8 Glucose Level 113mg/dL (70-99) 105mg/dL (70-99) Calcium Level 8.8mg/dL (8.5-10.1) 8.9mg/dL (8.5-10.1) Magnesium Level 2.0mg/dL (1.8-2.4) O2 Saturation 98% (92-99) Arterial Blood pH 7.31 (7.35-7.45) Arterial Blood pCO2 at Patient Temp 89mmHg (35-46) Arterial Blood pO2 at Patient Temp 137mmHg (65-108) Arterial Blood HCO3 44mmol/L (21-28) Arterial Blood Base Excess 14mmol/L (-3-3) FiO2 36 Laboratory Tests Test 04/16/16 08:11 04/16/16 08:50 White Blood Count 3.8x10^3/uL (4.0-11.0) Red Blood Count 2.88x10^6/uL (4.30-5.70) Hemoglobin 9.2g/dL (13.0-17.5) Hematocrit 30.3% (39.0-53.0) Mean Corpuscular Volume 105fL (79-100) Mean Corpuscular Hemoglobin 32pg (25-35) Mean Corpuscular Hemoglobin Concent 31g/dL (31-37) Red Cell Distribution Width 14.1% (11.5-14.5) Platelet Count 186x10^3/uL (140-400) Neutrophils (%) (Auto) 52% (31-73) Lymphocytes (%) (Auto) 34% (24-48) Monocytes (%) (Auto) 12% (0-9) Eosinophils (%) (Auto) 2% (0-3) Basophils (%) (Auto) 0% (0-3) Neutrophils # (Auto) 2.0x10^3uL (1.8-7.7) Lymphocytes # (Auto) 1.3x10^3/uL (1.0-4.8) Monocytes # (Auto) 0.5x10^3/uL (0.0-1.1) Eosinophils # (Auto) 0.1x10^3/uL (0.0-0.7) Basophils # (Auto) 0.0x10^3/uL (0.0-0.2) Sodium Level 148mmol/L (136-145) Potassium Level 4.4mmol/L (3.5-5.1) Chloride Level 105mmol/L (98-107) Carbon Dioxide Level 45mmol/L (21-32) Anion Gap (6-14) Blood Urea Nitrogen 21mg/dL (8-26) Creatinine 0.6mg/dL (0.7-1.3) Estimated GFR (Cockcroft-Gault) 159.8 Glucose Level 105mg/dL (70-99) Calcium Level 8.9mg/dL (8.5-10.1) Magnesium Level 2.0mg/dL (1.8-2.4) O2 Saturation 98% (92-99) Arterial Blood pH 7.31 (7.35-7.45) Arterial Blood pCO2 at Patient Temp 89mmHg (35-46) Arterial Blood pO2 at Patient Temp 137mmHg (65-108) Arterial Blood HCO3 44mmol/L (21-28) Arterial Blood Base Excess 14mmol/L (-3-3) FiO2 36 Microbiology 04/13/16 Gram Stain - Final, Complete 04/12/16 Urine Culture - Final, Complete 04/12/16 Urine Culture Result 1 (KAREN) - Final, Complete Medications Current Medications Ondansetron HCl (Zofran) 4 mg PRN Q6HRS PRN IV NAUSEA/VOMITING 1ST CHOICE; Start 04/12/16 at 10:15 Prochlorperazine Edisylate (Compazine) 10 mg PRN Q6HRS PRN IV NAUSEA/VOMITING 2ND CHOICE; Start 04/12/16 at 10:15 Prochlorperazine (Compazine) 25 mg PRN Q12HR PRN PA NAUSEA/VOMITING; Start at 10:15 Al Hydrox/Mg Hydrox/Simethicone (Mylanta Plus Xs) 30 ml PRN Q3HRS PRN PO HEARTBURN / GAS; Start 04/12/16 at 10:15 Calcium Carbonate/ Glycine (Tums) 500 mg PRN Q3HRS PRN PO UPSET STOMACH Last administered on 04/16/16 09:46; Start 04/12/16 at 10:15 Oxycodone HCl (Roxicodone) 5 mg PRN Q3HRS PRN PO BREAKTHROUGH PAIN; Start 04/12 at 10:15 Morphine Sulfate 1 mg PRN Q1HR PRN IV PAIN; Start 04/12/16 at 10:15 Magnesium Hydroxide (Milk Of Magnesia) 2,400 mg PRN Q12HR PRN PO CONSTIPATION; Start 04/12/16 at 10:15 Lactulose 20 gm PRN Q12HR PRN PO CONSTIPATION; Start 04/12/16 at 10:15 Bisacodyl (Dulcolax Supp) 10 mg PRN DAILY PRN PA CONSTIPATION; Start 04/12/16 at 10:15 Apixaban (Eliquis) 5 mg BID PO Last administered on 04/13/16 09:27; Start at 10:30; Stop 04/13/16 at 14:44; Status DC Atorvastatin Calcium (Lipitor) 20 mg QHS PO Last administered on 04/15/16 20: 32; Start 04/12/16 at 21:00 Calcium/Vitamin D (Oscal D 500mg/ 200uts) 1 tab DAILY PO Last administered on 09:05; Start 04/12/16 at 11:00 Furosemide (Lasix) 10 mg DAILY PRN PO Fluid retention; Start 04/12/16 at 10:15 ; Stop 04/12/16 at 10:15; Status DC Lidocaine HCl (Xylocaine 2% Topical 5gm Tube) 1 belkys PRN Q4HRS PRN TP PAIN; Start 04/12/16 at 10:15 Lisinopril (Prinivil) 20 mg DAILY PO Last administered on 04/16/16 09:46; Start 04/12/16 at 10:30 Metoprolol Succinate (Toprol Xl) 25 mg DAILY PO Last administered on 04/16/16 09:45; Start 04/12/16 at 10:30 Phenazopyridine HCl (Pyridium) 200 mg TID PO Last administered on 04/16/16 12: 35; Start 04/12/16 at 14:00 Polyethylene Glycol (miraLAX PACKET) 17 gm PRN DAILY PRN PO CONSTIPATION; Start 04/12/16 at 10:15 Senna/Docusate Sodium (Senna Plus) 1 tab DAILY PO Last administered on 09:45; Start 04/12/16 at 10:30 Non-Formulary Medication 400 mcg BID IH ; Start 04/12/16 at 21:00; Status UNV Non-Formulary Medication 1 vial PRN QID PRN NEB SHORTNESS OF BREATH; Start at 10:15; Stop 04/12/16 at 10:36; Status DC Non-Formulary Medication 1 puff PRN QID PRN INH SHORTNESS OF BREATH; Start at 10:15; Stop 04/12/16 at 10:36; Status DC Non-Formulary Medication 237 ml BID PO ; Start 04/12/16 at 21:00; Stop 04/12/16 at 21:00; Status DC Non-Formulary Medication 4 gm DAILY IH ; Start 04/13/16 at 09:00; Stop 04/13/16 at 09:00; Status DC Info (Anti-Coagulation Monitoring By Pharmacy) 1 each PRN DAILY PRN MC SEE COMMENTS Last administered on 04/13/16 11:07; Start 04/12/16 at 10:30 Albuterol/ Ipratropium (Duoneb) 3 ml RTQID NEB ; Start 04/12/16 at 12:00; Status UNV Albuterol Sulfate 2.5 mg 2.5 mg PRN Q6HRS PRN NEB SHORTNESS OF BREATH Last administered on 04/16/16 05:07; Start 04/12/16 at 10:45 Levofloxacin/ Dextrose (LEVAQUIN 500mg PREMIX) 100 ml @ 100 mls/hr Q24H IV Last administered on 04/12/16 17:11; Start 04/12/16 at 14:00; Stop 04/13/16 at 11:06; Status DC Guaifenesin (Robitussin) 200 mg QID PO Last administered on 04/16/16 09:46; Start 04/12/16 at 17:00 Albuterol/ Ipratropium (Duoneb) 3 ml RTQID NEB Last administered on 04/16/16 11:13; Start 04/12/16 at 16:00 Non-Formulary Medication 1 ea 1 ea DAILY INH Last administered on 04/16/16 09: 00; Start 04/13/16 at 09:00 Levofloxacin/ Dextrose (LEVAQUIN 250mg PREMIX) 50 ml @ 50 mls/hr Q24H IV Last administered on 04/15/16 16:21; Start 04/13/16 at 17:00 Lidocaine (Lidoderm) 1 patch DAILY TD Last administered on 04/15/16 09:06; Start 04/13/16 at 14:45 Famotidine (Pepcid) 20 mg DAILY PO Last administered on 04/16/16 09:45; Start 04/15/16 at 09:00 Apixaban (Eliquis) 5 mg BID PO Last administered on 04/15/16 09:05; Start at 12:00; Stop 04/15/16 at 12:30; Status DC Active Scripts Active Reported Nutritional Shake (Lactose-Reduced Food) 237 Ml Liquid 237 Ml PO BID Calcium 500 + Vit D 200 Tablet (Calcium Carbonate/Vitamin D3) 1 Each Tablet 1 Each PO Furosemide 20 Mg Tablet 10 Mg PO PRN PRN Polyethylene Glycol 3350 17 Gm Powd.pack 17 Gm PO PRN DAILY PRN Phenazopyridine Hcl 200 Mg Tablet 1 Tab PO TID Striverdi Respimat (Olodaterol HCl) 4 Gm Mist.inhal 4 Gm IH DAILY Metoprolol Succinate 50 Mg Tab.er.24h 25 Mg PO Lisinopril 20 Mg Tablet 1 Tab PO DAILY Lidocaine Hcl 5 Ml Jel..ml. 5 Ml MM PRN Q4HRS PRN Senna-Docusate Sodium Tablet (Sennosides/Docusate Sodium) 1 Each Tablet 1 Each PO Vitamin D-3 (Cholecalciferol (Vitamin D3)) 2,000 Unit Tablet 1,000 Unit PO Atorvastatin Calcium 20 Mg Tablet 1 Tab PO DAILY Eliquis (Apixaban) 5 Mg Tablet 5 Mg PO BID Albuterol Sulfate Conc Neb Soln (Albuterol Sulfate) 2.5 Mg/0.5 Ml Vial.neb 1 Vial NEB PRN QID PRN Proair Hfa Inhaler (Albuterol Sulfate) 8.5 Gm Hfa.aer.ad 1 Puff INH PRN QID PRN Tudorza Pressair (Aclidinium [place]) 400 Mcg Aer.pow.ba 400 Mcg IH BID Vitals/I & O Vital Sign - Last 24 Hours 04/15/16 04/15/16 04/15/16 04/15/16 15:03 15:42 19:21 20:00 Temp 98.0 97.9 98.0 97.9 Pulse 78 93 Resp 18 20 B/P 112/52 109/68 Pulse Ox 96 96 94 O2 Delivery Nasal Cannula Nasal Cannula Nasal Cannula Nasal Cannula O2 Flow Rate 4.0 4.0 4.0 4.0 04/15/16 04/15/16 04/16/16 04/16/16 20:40 23:31 03:00 05:08 Temp 98.8 97.9 98.8 97.9 Pulse 71 56 Resp 20 18 B/P 117/66 129/75 Pulse Ox 97 94 93 94 O2 Delivery Nasal Cannula Nasal Cannula Nasal Cannula Nasal Cannula O2 Flow Rate 4.0 4.0 4.0 4.0 04/16/16 04/16/16 04/16/16 04/16/16 07:00 08:00 08:42 09:45 Temp 97.9 97.9 Pulse 53 53 Resp 18 B/P 102/66 102/66 Pulse Ox 92 96 O2 Delivery Nasal Cannula Bi-pap Nasal Cannula O2 Flow Rate 4.0 4.0 04/16/16 04/16/16 04/16/16 04/16/16 09:46 10:30 11:00 11:06 Temp 97.7 97.7 Pulse 65 44 Resp 18 B/P 102/66 89/54 Pulse Ox 93 100 91 O2 Delivery BiPAP/CPAP BiPAP/CPAP BiPAP/CPAP 04/16/16 12:42 Pulse Ox 92 O2 Delivery BiPAP/CPAP Intake and Output 04/15/16 04/15/16 04/16/16 15:00 23:00 07:00 Intake Total 450 ml 100 ml Output Total 720 ml 225 ml Balance -270 ml -125 ml GREYSON SMILEY MD Apr 16, 2016 14:05
--- NOTE | 2016-04-16 14:29 | PDOC ---
Provider Note Provider Note MINDY reviewed acute on chronic hypercapnic RF d/w patient and RT place on BIPAP avoid hyperoxia f/u DAVIAN LOPEZ MD Apr 16, 2016 14:29
[2016-04-16 15:00] VITALS: BP 113/54
[2016-04-16 15:37] LABS: HCO3 ABG 41 mmol/L (21-28); PH ABG 7.46 (7.35-7.45); PO2 ABG 54 mmHg (65-108); SAT O2 ABG 89 % (92-99)
[2016-04-16 15:38] LABS: PCO2 ABG 60 mmHg (35-46)
[2016-04-16 19:59] VITALS: BP 124/71
[2016-04-16] MEDS: ATORVASTATIN CALCIUM 20 MG TABLET PO SCH (20:46)
[2016-04-16] MEDS: OXYCODONE IR 5 MG TABLET. PO PRN (20:52)
[2016-04-16 23:40] VITALS: BP 150/80
[2016-04-17 03:42] VITALS: BP 109/69
[2016-04-17 04:09] LABS: BASO % 0 % (0-3); EOS % 1 % (0-3); HEMOGLOBIN 7.8 g/dL (13.0-17.5); LYMPH # 1.5 x10^3/uL (1.0-4.8); LYMPH % 31 % (24-48); MEAN CORPUSCULAR HEMOGLOBIN 32 pg (25-35); MEAN CORPUSCULAR HGB CONC 31 g/dL (31-37); MEAN CORPUSCULAR VOLUME 104 fL (79-100); MONO % 13 % (0-9); NEUT % 54 % (31-73); PLATELET COUNT 184 x10^3/uL (140-400); RED CELL DISTRIBUTION WIDTH 14.3 % (11.5-14.5); WHITE BLOOD COUNT 4.8 x10^3/uL (4.0-11.0)
[2016-04-17 04:33] LABS: CALCIUM 9.3 mg/dL (8.5-10.1); CREATININE 0.8 mg/dL (0.7-1.3); GFR 114.7; POTASSIUM 3.9 mmol/L (3.5-5.1)
[2016-04-17] MEDS: IPRATRPIUM/ALBUTEROL 0.5/2.5MG 3 ML NEBU. NEB SCH ×4 (07:25→19:50)
[2016-04-17 07:32] VITALS: BP 129/72
--- NOTE | 2016-04-17 08:24 | PDOC ---
PULMONARY PROGRESS NOTES Subjective no increase soa much better after BIPAP ABG improved Vitals Vital Signs Date Time Temp Pulse Resp B/P Pulse Ox O2 Delivery O2 Flow Rate FiO2 04/17/16 07:32 97.7 89 20 129/72 97 Venturi Mask 97.7 04/17/16 07:28 6.0 ROS: No Nausea, No Chest Pain, No Abdominal Pain, No Increase Cough General: Alert, No acute distress HEENT: Other (nc at perrl, poor dentition, nose inflamed mucosa) Lungs: Other (decrease bs) Cardiovascular: S1, S2 Abdomen: Soft, Non-tender Neuro Exam: Alert Extremities: No Edema Skin: Warm Labs Laboratory Tests Test 04/15/16 09:55 04/16/16 08:11 04/16/16 08:50 04/16/16 14:00 White Blood Count 3.8x10^3/uL (4.0-11.0) 3.8x10^3/uL (4.0-11.0) Red Blood Count 2.77x10^6/uL (4.30-5.70) 2.88x10^6/uL (4.30-5.70) Hemoglobin 8.9g/dL (13.0-17.5) 9.2g/dL (13.0-17.5) Hematocrit 28.3% (39.0-53.0) 30.3% (39.0-53.0) Mean Corpuscular Volume 102fL (79-100) 105fL (79-100) Mean Corpuscular Hemoglobin 32pg (25-35) 32pg (25-35) Mean Corpuscular Hemoglobin Concent 31g/dL (31-37) 31g/dL (31-37) Red Cell Distribution Width 14.1% (11.5-14.5) 14.1% (11.5-14.5) Platelet Count 157x10^3/uL (140-400) 186x10^3/uL (140-400) Neutrophils (%) (Auto) 45% (31-73) 52% (31-73) Lymphocytes (%) (Auto) 38% (24-48) 34% (24-48) Monocytes (%) (Auto) 15% (0-9) 12% (0-9) Eosinophils (%) (Auto) 2% (0-3) 2% (0-3) Basophils (%) (Auto) 0% (0-3) 0% (0-3) Neutrophils # (Auto) 1.7x10^3uL (1.8-7.7) 2.0x10^3uL (1.8-7.7) Lymphocytes # (Auto) 1.4x10^3/uL (1.0-4.8) 1.3x10^3/uL (1.0-4.8) Monocytes # (Auto) 0.6x10^3/uL (0.0-1.1) 0.5x10^3/uL (0.0-1.1) Eosinophils # (Auto) 0.1x10^3/uL (0.0-0.7) 0.1x10^3/uL (0.0-0.7) Basophils # (Auto) 0.0x10^3/uL (0.0-0.2) 0.0x10^3/uL (0.0-0.2) Sodium Level 147mmol/L (136-145) 148mmol/L (136-145) Potassium Level 3.9mmol/L (3.5-5.1) 4.4mmol/L (3.5-5.1) Chloride Level 103mmol/L (98-107) 105mmol/L (98-107) Carbon Dioxide Level > 45mmol/L (21-32) 45mmol/L (21-32) Anion Gap (6-14) (6-14) Blood Urea Nitrogen 20mg/dL (8-26) 21mg/dL (8-26) Creatinine 0.6mg/dL (0.7-1.3) 0.6mg/dL (0.7-1.3) Estimated GFR (Cockcroft-Gault) 159.8 159.8 Glucose Level 113mg/dL (70-99) 105mg/dL (70-99) Calcium Level 8.8mg/dL (8.5-10.1) 8.9mg/dL (8.5-10.1) Magnesium Level 2.0mg/dL (1.8-2.4) O2 Saturation 98% (92-99) 89% (92-99) Arterial Blood pH 7.31 (7.35-7.45) 7.46 (7.35-7.45) Arterial Blood pCO2 at Patient Temp 89mmHg (35-46) 60mmHg (35-46) Arterial Blood pO2 at Patient Temp 137mmHg (65-108) 54mmHg (65-108) Arterial Blood HCO3 44mmol/L (21-28) 41mmol/L (21-28) Arterial Blood Base Excess 14mmol/L (-3-3) 15mmol/L (-3-3) FiO2 36 25.0 Test 04/17/16 03:38 White Blood Count 4.8x10^3/uL (4.0-11.0) Red Blood Count 2.40x10^6/uL (4.30-5.70) Hemoglobin 7.8g/dL (13.0-17.5) Hematocrit 25.0% (39.0-53.0) Mean Corpuscular Volume 104fL (79-100) Mean Corpuscular Hemoglobin 32pg (25-35) Mean Corpuscular Hemoglobin Concent 31g/dL (31-37) Red Cell Distribution Width 14.3% (11.5-14.5) Platelet Count 184x10^3/uL (140-400) Neutrophils (%) (Auto) 54% (31-73) Lymphocytes (%) (Auto) 31% (24-48) Monocytes (%) (Auto) 13% (0-9) Eosinophils (%) (Auto) 1% (0-3) Basophils (%) (Auto) 0% (0-3) Neutrophils # (Auto) 2.6x10^3uL (1.8-7.7) Lymphocytes # (Auto) 1.5x10^3/uL (1.0-4.8) Monocytes # (Auto) 0.6x10^3/uL (0.0-1.1) Eosinophils # (Auto) 0.1x10^3/uL (0.0-0.7) Basophils # (Auto) 0.0x10^3/uL (0.0-0.2) Sodium Level 148mmol/L (136-145) Potassium Level 3.9mmol/L (3.5-5.1) Chloride Level 106mmol/L (98-107) Carbon Dioxide Level 40mmol/L (21-32) Anion Gap 2 (6-14) Blood Urea Nitrogen 33mg/dL (8-26) Creatinine 0.8mg/dL (0.7-1.3) Estimated GFR (Cockcroft-Gault) 114.7 Glucose Level 113mg/dL (70-99) Calcium Level 9.3mg/dL (8.5-10.1) Laboratory Tests Test 04/16/16 08:50 04/16/16 14:00 04/17/16 03:38 O2 Saturation 98% (92-99) 89% (92-99) Arterial Blood pH 7.31 (7.35-7.45) 7.46 (7.35-7.45) Arterial Blood pCO2 at Patient Temp 89mmHg (35-46) 60mmHg (35-46) Arterial Blood pO2 at Patient Temp 137mmHg (65-108) 54mmHg (65-108) Arterial Blood HCO3 44mmol/L (21-28) 41mmol/L (21-28) Arterial Blood Base Excess 14mmol/L (-3-3) 15mmol/L (-3-3) FiO2 36 25.0 White Blood Count 4.8x10^3/uL (4.0-11.0) Red Blood Count 2.40x10^6/uL (4.30-5.70) Hemoglobin 7.8g/dL (13.0-17.5) Hematocrit 25.0% (39.0-53.0) Mean Corpuscular Volume 104fL (79-100) Mean Corpuscular Hemoglobin 32pg (25-35) Mean Corpuscular Hemoglobin Concent 31g/dL (31-37) Red Cell Distribution Width 14.3% (11.5-14.5) Platelet Count 184x10^3/uL (140-400) Neutrophils (%) (Auto) 54% (31-73) Lymphocytes (%) (Auto) 31% (24-48) Monocytes (%) (Auto) 13% (0-9) Eosinophils (%) (Auto) 1% (0-3) Basophils (%) (Auto) 0% (0-3) Neutrophils # (Auto) 2.6x10^3uL (1.8-7.7) Lymphocytes # (Auto) 1.5x10^3/uL (1.0-4.8) Monocytes # (Auto) 0.6x10^3/uL (0.0-1.1) Eosinophils # (Auto) 0.1x10^3/uL (0.0-0.7) Basophils # (Auto) 0.0x10^3/uL (0.0-0.2) Sodium Level 148mmol/L (136-145) Potassium Level 3.9mmol/L (3.5-5.1) Chloride Level 106mmol/L (98-107) Carbon Dioxide Level 40mmol/L (21-32) Anion Gap 2 (6-14) Blood Urea Nitrogen 33mg/dL (8-26) Creatinine 0.8mg/dL (0.7-1.3) Estimated GFR (Cockcroft-Gault) 114.7 Glucose Level 113mg/dL (70-99) Calcium Level 9.3mg/dL (8.5-10.1) Medications Active Scripts Medications Dose Route/Sig Days Date Category Nutritional Shake (Lactose-Reduced Food) 237 Ml Liquid 237 Ml PO BID 04/12/16 Reported Calcium 500 + Vit D 200 Tablet (Calcium Carbonate/Vitamin D3) 1 Each Tablet 1 Each PO 04/12/16 Reported Furosemide 20 Mg Tablet 10 Mg PO PRN PRN 04/12/16 Reported Polyethylene Glycol 3350 17 Gm Powd.pack 17 Gm PO PRN DAILY PRN 04/12/16 Reported Phenazopyridine Hcl 200 Mg Tablet 1 Tab PO TID 04/12/16 Reported Striverdi Respimat (Olodaterol HCl) 4 Gm Mist.inhal 4 Gm IH DAILY 04/12/16 Reported Metoprolol Succinate 50 Mg Tab.er.24h 25 Mg PO 04/12/16 Reported Lisinopril 20 Mg Tablet 1 Tab PO DAILY 04/12/16 Reported Lidocaine Hcl 5 Ml Jel..ml. 5 Ml MM PRN Q4HRS PRN 04/12/16 Reported Senna-Docusate Sodium Tablet (Sennosides/Docusate Sodium) 1 Each Tablet 1 Each PO 04/12/16 Reported Vitamin D-3 (Cholecalciferol (Vitamin D3)) 2,000 Unit Tablet 1,000 Unit PO 04/12/16 Reported Atorvastatin Calcium 20 Mg Tablet 1 Tab PO DAILY 04/12/16 Reported Eliquis (Apixaban) 5 Mg Tablet 5 Mg PO BID 04/12/16 Reported Albuterol Sulfate Conc Neb Soln (Albuterol Sulfate) 2.5 Mg/0.5 Ml Vial.neb 1 Vial NEB PRN QID PRN 04/12/16 Reported Proair Hfa Inhaler (Albuterol Sulfate) 8.5 Gm Hfa.aer.ad 1 Puff INH PRN QID PRN 04/12/16 Reported Tudorza Pressair (Aclidinium [place]) 400 Mcg Aer.pow.ba 400 Mcg IH BID 04/12/[address] of chest reviewed, No acute finding seen. Extensive emphysematous changes in the lungs. Scattered areas of volume loss in the lungs likely reflect compressive atelectasis and scar. Superimposed pneumonia in the left lower lobe is not entirely excluded Solitary 6 mm pulmonary nodule in left upper Impression . 1. Abnormal ct chest with Left upper lobe nodule, nodular scarring LLL, basal atelectasis vs ? pneumonia, severe bullous COPD 2. pneumonia. 3. Chronic respiratory failure with acute decompensation/ treated with BIPAP 4. Significant weight loss, body mass index of 15.1. 5. Moderate protein malnutrition, present upon admission. 6. Leukopenia. 7. LAM Plan . much better after BIPAP ABG improved 1. Recommend continue current antibiotics and nebulized treatments. 2. ct of chest reviewed, needs full ct for SHARLA nodule in 3 mon. . 3. Consult dietitian for malnutrition. 4. Continue oxygen supplementation. 5. on eliquis, monitor for bleeding 6. bronchodilator 7. pepcid for gi prophylaxis DAVIAN GUNTER MD Apr 17, 2016 08:24
[2016-04-17] MEDS: STRIVERDI RESPIMAT INH SCH (08:53)
[2016-04-17] MEDS: GUAIFENESIN 200 MG/10 ML LIQUID. PO SCH ×4 (08:53→21:16)
[2016-04-17] MEDS: CALCIUM CARB/VIT D3 500/200 TABLET PO SCH (08:53)
[2016-04-17] MEDS: LIDOCAINE (700MG/PATCH) PATCH. TD SCH (08:53)
[2016-04-17] MEDS: METOPROLOL SUCC 24HR ER 50 MG TAB.ER.24H. PO SCH (08:54)
[2016-04-17] MEDS: SENNOSIDES/DOCUSATE 8.6/50MG TABLET. PO SCH (08:55)
[2016-04-17] MEDS: LISINOPRIL 20 MG TABLET PO SCH (08:55)
[2016-04-17] MEDS: PHENAZOPYRIDINE 200 MG TABLET. PO SCH ×3 (08:55→21:16)
[2016-04-17] MEDS: FAMOTIDINE 20 MG TABLET. PO SCH (08:55)
--- NOTE | 2016-04-17 10:04 | PDOC ---
LITATAYLOR [place]ica [employer] 04/17/16 1004: CARDIO Progress Notes Date and Time Date of Service 04/17/2016 Time of Evaluation 1004 Subjective Subjective: No Chest Pain, No Palpitations, No Dizziness Vitals Vitals Vital Signs Date Time Temp Pulse Resp B/P Pulse Ox O2 Delivery O2 Flow Rate FiO2 04/17/16 08:55 89 129/72 04/17/16 08:00 Nasal Cannula 6.0 04/17/16 07:32 97.7 20 97 97.7 Weight Weight [ ] Input and Output Intake and Output Intake and Output 04/17/16 07:00 Intake Total 800 ml Output Total 950 ml Balance -150 ml Intake Oral 800 ml Output Urine Total 950 ml Laboratory Labs Laboratory Tests Test 04/16/16 14:00 04/17/16 03:38 O2 Saturation 89% (92-99) Arterial Blood pH 7.46 (7.35-7.45) Arterial Blood pCO2 at Patient Temp 60mmHg (35-46) Arterial Blood pO2 at Patient Temp 54mmHg (65-108) Arterial Blood HCO3 41mmol/L (21-28) Arterial Blood Base Excess 15mmol/L (-3-3) FiO2 25.0 White Blood Count 4.8x10^3/uL (4.0-11.0) Red Blood Count 2.40x10^6/uL (4.30-5.70) Hemoglobin 7.8g/dL (13.0-17.5) Hematocrit 25.0% (39.0-53.0) Mean Corpuscular Volume 104fL (79-100) Mean Corpuscular Hemoglobin 32pg (25-35) Mean Corpuscular Hemoglobin Concent 31g/dL (31-37) Red Cell Distribution Width 14.3% (11.5-14.5) Platelet Count 184x10^3/uL (140-400) Neutrophils (%) (Auto) 54% (31-73) Lymphocytes (%) (Auto) 31% (24-48) Monocytes (%) (Auto) 13% (0-9) Eosinophils (%) (Auto) 1% (0-3) Basophils (%) (Auto) 0% (0-3) Neutrophils # (Auto) 2.6x10^3uL (1.8-7.7) Lymphocytes # (Auto) 1.5x10^3/uL (1.0-4.8) Monocytes # (Auto) 0.6x10^3/uL (0.0-1.1) Eosinophils # (Auto) 0.1x10^3/uL (0.0-0.7) Basophils # (Auto) 0.0x10^3/uL (0.0-0.2) Sodium Level 148mmol/L (136-145) Potassium Level 3.9mmol/L (3.5-5.1) Chloride Level 106mmol/L (98-107) Carbon Dioxide Level 40mmol/L (21-32) Anion Gap 2 (6-14) Blood Urea Nitrogen 33mg/dL (8-26) Creatinine 0.8mg/dL (0.7-1.3) Estimated GFR (Cockcroft-Gault) 114.7 Glucose Level 113mg/dL (70-99) Calcium Level 9.3mg/dL (8.5-10.1) Microbiology Micro Microbiology 04/15/16 Blood Culture - Preliminary, Resulted NO GROWTH AFTER 1 DAY 04/13/16 Gram Stain - Final, Complete 04/12/16 Urine Culture - Final, Complete 04/12/16 Urine Culture Result 1 (KAREN) - Final, Complete Physical Exam HEENT: Neck Supple W Full Motion Chest: Symmetric LUNGS: Other (coarse, exp wheezing) Heart: S1S2, other (tele: V paced) Abdomen: Soft N/T Extremities: No Edema Neurology: alert, oriented, follow commands Assessment Assessment 1. 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 LLL pneumonia with COPD([facility] FEV-1: 0.54, 11/2014; FEV1/FVC 26%) on abx - per PULM also with 6 mm LLL SPN leukopenic 3. atrial fib, chronic per [facility] currently appears to be sinus underlying on tele with intermittent Bi-V pacing Eliquis on hold due to hematuria no AF/AT on ICD interrogation rate controlled with BB 4. HTN continue meds as controlled 5. HLD continue meds 6. protein calorie malnutrition long standing problem per [facility] dietitian eval pending Suspect pt may benefit from SNF/LTAC stay Problems: KYLE BRISCOE MD 04/17/16 1828: CARDIO Progress Notes Plan Plan Patient seen and examined. Agree with above nurse practitioner. No acute events overnight. Reviewed ICD interrogation. Mr. Temple ultimately might benefit from palliative care evaluation given his emaciated state. No further cardiac testing necessary at this time. Continue supportive care. TAYLOR LONDON APRN Apr 17, 2016 10:04 KYLE BRISCOE MD Apr 17, 2016 18:28
[2016-04-17 11:00] VITALS: BP 106/66
--- NOTE | 2016-04-17 13:36 | PDOC ---
PROGRESS NOTES Chief Complaint Chief Complaint 1. CAP needing inpt management 2. ACUTE HYPERCApneic, hypoxic RESPI FAILURE NOW NIPPV 2. Atrial fib in MVR /RVR intermittently on elliquis, chronic 3. 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 COnstipation 6. UTI 7. 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 LALO, vasomotor 10. PAncytopenia from sepsis? 11. Thrombocytopenia on elliquis History of Present Illness History of Present Illness ON nc Bipap prn ABG shows Co2 60s, O2 50s NO inc in SOA Blood tinged urine still - elliquis being held Platelets on low side? Hgb 7.8 ST [facility] pacer functioning finr ON elliquis for a trial fib PLAn: Follow pumo recs COnt to hold elliquis - hamturia SW for [facility]U ABG irina COnt iV cap coverage SCds Vitals Vitals Vital Signs Date Time Temp Pulse Resp B/P Pulse Ox O2 Delivery O2 Flow Rate FiO2 04/17/16 11:55 97 Nasal Cannula 5.0 04/17/16 11:00 98.1 72 20 106/66 98.1 Physical Exam General: Alert, Oriented X3, Cooperative, mild distress, Other (appears cachexic) Heart: Normal S1, Normal S2, No murmurs, Other (no carotid bruits; ICD in left pectoral region with well healed pocket; tele: A-sensed with V-pacing) Lungs: Other (decrease bs) Abdomen: No tenderness Extremities: No edema, Normal pulses Skin: No rashes Labs LABS Laboratory Tests Test 04/16/16 14:00 04/17/16 03:38 O2 Saturation 89% (92-99) Arterial Blood pH 7.46 (7.35-7.45) Arterial Blood pCO2 at Patient Temp 60mmHg (35-46) Arterial Blood pO2 at Patient Temp 54mmHg (65-108) Arterial Blood HCO3 41mmol/L (21-28) Arterial Blood Base Excess 15mmol/L (-3-3) FiO2 25.0 White Blood Count 4.8x10^3/uL (4.0-11.0) Red Blood Count 2.40x10^6/uL (4.30-5.70) Hemoglobin 7.8g/dL (13.0-17.5) Hematocrit 25.0% (39.0-53.0) Mean Corpuscular Volume 104fL (79-100) Mean Corpuscular Hemoglobin 32pg (25-35) Mean Corpuscular Hemoglobin Concent 31g/dL (31-37) Red Cell Distribution Width 14.3% (11.5-14.5) Platelet Count 184x10^3/uL (140-400) Neutrophils (%) (Auto) 54% (31-73) Lymphocytes (%) (Auto) 31% (24-48) Monocytes (%) (Auto) 13% (0-9) Eosinophils (%) (Auto) 1% (0-3) Basophils (%) (Auto) 0% (0-3) Neutrophils # (Auto) 2.6x10^3uL (1.8-7.7) Lymphocytes # (Auto) 1.5x10^3/uL (1.0-4.8) Monocytes # (Auto) 0.6x10^3/uL (0.0-1.1) Eosinophils # (Auto) 0.1x10^3/uL (0.0-0.7) Basophils # (Auto) 0.0x10^3/uL (0.0-0.2) Sodium Level 148mmol/L (136-145) Potassium Level 3.9mmol/L (3.5-5.1) Chloride Level 106mmol/L (98-107) Carbon Dioxide Level 40mmol/L (21-32) Anion Gap 2 (6-14) Blood Urea Nitrogen 33mg/dL (8-26) Creatinine 0.8mg/dL (0.7-1.3) Estimated GFR (Cockcroft-Gault) 114.7 Glucose Level 113mg/dL (70-99) Calcium Level 9.3mg/dL (8.5-10.1) Review of Systems Review of Systems bloody urine, no phlegm, no soa Assessment and Plan Assessmemt and Plan Problems Medical Problems: (1) Pneumonia Status: Acute Problems: Comment Review of Relevant I have reviewed the following items leonie (where applicable) has been applied. Labs Laboratory Tests Test 04/16/16 08:11 04/16/16 08:50 04/16/16 14:00 04/17/16 03:38 White Blood Count 3.8x10^3/uL (4.0-11.0) 4.8x10^3/uL (4.0-11.0) Red Blood Count 2.88x10^6/uL (4.30-5.70) 2.40x10^6/uL (4.30-5.70) Hemoglobin 9.2g/dL (13.0-17.5) 7.8g/dL (13.0-17.5) Hematocrit 30.3% (39.0-53.0) 25.0% (39.0-53.0) Mean Corpuscular Volume 105fL (79-100) 104fL (79-100) Mean Corpuscular Hemoglobin 32pg (25-35) 32pg (25-35) Mean Corpuscular Hemoglobin Concent 31g/dL (31-37) 31g/dL (31-37) Red Cell Distribution Width 14.1% (11.5-14.5) 14.3% (11.5-14.5) Platelet Count 186x10^3/uL (140-400) 184x10^3/uL (140-400) Neutrophils (%) (Auto) 52% (31-73) 54% (31-73) Lymphocytes (%) (Auto) 34% (24-48) 31% (24-48) Monocytes (%) (Auto) 12% (0-9) 13% (0-9) Eosinophils (%) (Auto) 2% (0-3) 1% (0-3) Basophils (%) (Auto) 0% (0-3) 0% (0-3) Neutrophils # (Auto) 2.0x10^3uL (1.8-7.7) 2.6x10^3uL (1.8-7.7) Lymphocytes # (Auto) 1.3x10^3/uL (1.0-4.8) 1.5x10^3/uL (1.0-4.8) Monocytes # (Auto) 0.5x10^3/uL (0.0-1.1) 0.6x10^3/uL (0.0-1.1) Eosinophils # (Auto) 0.1x10^3/uL (0.0-0.7) 0.1x10^3/uL (0.0-0.7) Basophils # (Auto) 0.0x10^3/uL (0.0-0.2) 0.0x10^3/uL (0.0-0.2) Sodium Level 148mmol/L (136-145) 148mmol/L (136-145) Potassium Level 4.4mmol/L (3.5-5.1) 3.9mmol/L (3.5-5.1) Chloride Level 105mmol/L (98-107) 106mmol/L (98-107) Carbon Dioxide Level 45mmol/L (21-32) 40mmol/L (21-32) Anion Gap (6-14) 2 (6-14) Blood Urea Nitrogen 21mg/dL (8-26) 33mg/dL (8-26) Creatinine 0.6mg/dL (0.7-1.3) 0.8mg/dL (0.7-1.3) Estimated GFR (Cockcroft-Gault) 159.8 114.7 Glucose Level 105mg/dL (70-99) 113mg/dL (70-99) Calcium Level 8.9mg/dL (8.5-10.1) 9.3mg/dL (8.5-10.1) Magnesium Level 2.0mg/dL (1.8-2.4) O2 Saturation 98% (92-99) 89% (92-99) Arterial Blood pH 7.31 (7.35-7.45) 7.46 (7.35-7.45) Arterial Blood pCO2 at Patient Temp 89mmHg (35-46) 60mmHg (35-46) Arterial Blood pO2 at Patient Temp 137mmHg (65-108) 54mmHg (65-108) Arterial Blood HCO3 44mmol/L (21-28) 41mmol/L (21-28) Arterial Blood Base Excess 14mmol/L (-3-3) 15mmol/L (-3-3) FiO2 36 25.0 Laboratory Tests Test 04/16/16 14:00 04/17/16 03:38 O2 Saturation 89% (92-99) Arterial Blood pH 7.46 (7.35-7.45) Arterial Blood pCO2 at Patient Temp 60mmHg (35-46) Arterial Blood pO2 at Patient Temp 54mmHg (65-108) Arterial Blood HCO3 41mmol/L (21-28) Arterial Blood Base Excess 15mmol/L (-3-3) FiO2 25.0 White Blood Count 4.8x10^3/uL (4.0-11.0) Red Blood Count 2.40x10^6/uL (4.30-5.70) Hemoglobin 7.8g/dL (13.0-17.5) Hematocrit 25.0% (39.0-53.0) Mean Corpuscular Volume 104fL (79-100) Mean Corpuscular Hemoglobin 32pg (25-35) Mean Corpuscular Hemoglobin Concent 31g/dL (31-37) Red Cell Distribution Width 14.3% (11.5-14.5) Platelet Count 184x10^3/uL (140-400) Neutrophils (%) (Auto) 54% (31-73) Lymphocytes (%) (Auto) 31% (24-48) Monocytes (%) (Auto) 13% (0-9) Eosinophils (%) (Auto) 1% (0-3) Basophils (%) (Auto) 0% (0-3) Neutrophils # (Auto) 2.6x10^3uL (1.8-7.7) Lymphocytes # (Auto) 1.5x10^3/uL (1.0-4.8) Monocytes # (Auto) 0.6x10^3/uL (0.0-1.1) Eosinophils # (Auto) 0.1x10^3/uL (0.0-0.7) Basophils # (Auto) 0.0x10^3/uL (0.0-0.2) Sodium Level 148mmol/L (136-145) Potassium Level 3.9mmol/L (3.5-5.1) Chloride Level 106mmol/L (98-107) Carbon Dioxide Level 40mmol/L (21-32) Anion Gap 2 (6-14) Blood Urea Nitrogen 33mg/dL (8-26) Creatinine 0.8mg/dL (0.7-1.3) Estimated GFR (Cockcroft-Gault) 114.7 Glucose Level 113mg/dL (70-99) Calcium Level 9.3mg/dL (8.5-10.1) Microbiology 04/15/16 Blood Culture - Preliminary, Resulted NO GROWTH AFTER 1 DAY 04/13/16 Gram Stain - Final, Complete 04/12/16 Urine Culture - Final, Complete 04/12/16 Urine Culture Result 1 (KAREN) - Final, Complete Medications Current Medications Ondansetron HCl (Zofran) 4 mg PRN Q6HRS PRN IV NAUSEA/VOMITING 1ST CHOICE; Start 04/12/16 at 10:15 Prochlorperazine Edisylate (Compazine) 10 mg PRN Q6HRS PRN IV NAUSEA/VOMITING 2ND CHOICE; Start 04/12/16 at 10:15 Prochlorperazine (Compazine) 25 mg PRN Q12HR PRN MS NAUSEA/VOMITING; Start at 10:15 Al Hydrox/Mg Hydrox/Simethicone (Mylanta Plus Xs) 30 ml PRN Q3HRS PRN PO HEARTBURN / GAS; Start 04/12/16 at 10:15 Calcium Carbonate/ Glycine (Tums) 500 mg PRN Q3HRS PRN PO UPSET STOMACH Last administered on 04/16/16 09:46; Start 04/12/16 at 10:15 Oxycodone HCl (Roxicodone) 5 mg PRN Q3HRS PRN PO BREAKTHROUGH PAIN Last administered on 04/16/16 20:52; Start 04/12/16 at 10:15 Morphine Sulfate 1 mg PRN Q1HR PRN IV PAIN; Start 04/12/16 at 10:15 Magnesium Hydroxide (Milk Of Magnesia) 2,400 mg PRN Q12HR PRN PO CONSTIPATION; Start 04/12/16 at 10:15 Lactulose 20 gm PRN Q12HR PRN PO CONSTIPATION; Start 04/12/16 at 10:15 Bisacodyl (Dulcolax Supp) 10 mg PRN DAILY PRN MS CONSTIPATION; Start 04/12/16 at 10:15 Apixaban (Eliquis) 5 mg BID PO Last administered on 04/13/16 09:27; Start at 10:30; Stop 04/13/16 at 14:44; Status DC Atorvastatin Calcium (Lipitor) 20 mg QHS PO Last administered on 04/16/16 20: 46; Start 04/12/16 at 21:00 Calcium/Vitamin D (Oscal D 500mg/ 200uts) 1 tab DAILY PO Last administered on 08:53; Start 04/12/16 at 11:00 Furosemide (Lasix) 10 mg DAILY PRN PO Fluid retention; Start 04/12/16 at 10:15 ; Stop 04/12/16 at 10:15; Status DC Lidocaine HCl (Xylocaine 2% Topical 5gm Tube) 1 belkys PRN Q4HRS PRN TP PAIN; Start 04/12/16 at 10:15 Lisinopril (Prinivil) 20 mg DAILY PO Last administered on 04/17/16 08:55; Start 04/12/16 at 10:30 Metoprolol Succinate (Toprol Xl) 25 mg DAILY PO Last administered on 04/17/16 08:54; Start 04/12/16 at 10:30 Phenazopyridine HCl (Pyridium) 200 mg TID PO Last administered on 04/17/16 08: 55; Start 04/12/16 at 14:00 Polyethylene Glycol (miraLAX PACKET) 17 gm PRN DAILY PRN PO CONSTIPATION; Start 04/12/16 at 10:15 Senna/Docusate Sodium (Senna Plus) 1 tab DAILY PO Last administered on 08:55; Start 04/12/16 at 10:30 Non-Formulary Medication 400 mcg BID IH ; Start 04/12/16 at 21:00; Status UNV Non-Formulary Medication 1 vial PRN QID PRN NEB SHORTNESS OF BREATH; Start at 10:15; Stop 04/12/16 at 10:36; Status DC Non-Formulary Medication 1 puff PRN QID PRN INH SHORTNESS OF BREATH; Start at 10:15; Stop 04/12/16 at 10:36; Status DC Non-Formulary Medication 237 ml BID PO ; Start 04/12/16 at 21:00; Stop 04/12/16 at 21:00; Status DC Non-Formulary Medication 4 gm DAILY IH ; Start 04/13/16 at 09:00; Stop 04/13/16 at 09:00; Status DC Info (Anti-Coagulation Monitoring By Pharmacy) 1 each PRN DAILY PRN MC SEE COMMENTS Last administered on 04/13/16 11:07; Start 04/12/16 at 10:30 Albuterol/ Ipratropium (Duoneb) 3 ml RTQID NEB ; Start 04/12/16 at 12:00; Status UNV Albuterol Sulfate 2.5 mg 2.5 mg PRN Q6HRS PRN NEB SHORTNESS OF BREATH Last administered on 04/16/16 05:07; Start 04/12/16 at 10:45 Levofloxacin/ Dextrose (LEVAQUIN 500mg PREMIX) 100 ml @ 100 mls/hr Q24H IV Last administered on 04/12/16 17:11; Start 04/12/16 at 14:00; Stop 04/13/16 at 11:06; Status DC Guaifenesin (Robitussin) 200 mg QID PO Last administered on 04/17/16 08:53; Start 04/12/16 at 17:00 Albuterol/ Ipratropium (Duoneb) 3 ml RTQID NEB Last administered on 04/17/16 11:49; Start 04/12/16 at 16:00 Non-Formulary Medication 1 ea 1 ea DAILY INH Last administered on 04/17/16 08: 53; Start 04/13/16 at 09:00 Levofloxacin/ Dextrose (LEVAQUIN 250mg PREMIX) 50 ml @ 50 mls/hr Q24H IV Last administered on 04/16/16 18:26; Start 04/13/16 at 17:00 Lidocaine (Lidoderm) 1 patch DAILY TD Last administered on 04/17/16 08:53; Start 04/13/16 at 14:45 Famotidine (Pepcid) 20 mg DAILY PO Last administered on 04/17/16 08:55; Start 04/15/16 at 09:00 Apixaban (Eliquis) 5 mg BID PO Last administered on 04/15/16 09:05; Start at 12:00; Stop 04/15/16 at 12:30; Status DC Active Scripts Active Reported Nutritional Shake (Lactose-Reduced Food) 237 Ml Liquid 237 Ml PO BID Calcium 500 + Vit D 200 Tablet (Calcium Carbonate/Vitamin D3) 1 Each Tablet 1 Each PO Furosemide 20 Mg Tablet 10 Mg PO PRN PRN Polyethylene Glycol 3350 17 Gm Powd.pack 17 Gm PO PRN DAILY PRN Phenazopyridine Hcl 200 Mg Tablet 1 Tab PO TID Striverdi Respimat (Olodaterol HCl) 4 Gm Mist.inhal 4 Gm IH DAILY Metoprolol Succinate 50 Mg Tab.er.24h 25 Mg PO Lisinopril 20 Mg Tablet 1 Tab PO DAILY Lidocaine Hcl 5 Ml Jel..ml. 5 Ml MM PRN Q4HRS PRN Senna-Docusate Sodium Tablet (Sennosides/Docusate Sodium) 1 Each Tablet 1 Each PO Vitamin D-3 (Cholecalciferol (Vitamin D3)) 2,000 Unit Tablet 1,000 Unit PO Atorvastatin Calcium 20 Mg Tablet 1 Tab PO DAILY Eliquis (Apixaban) 5 Mg Tablet 5 Mg PO BID Albuterol Sulfate Conc Neb Soln (Albuterol Sulfate) 2.5 Mg/0.5 Ml Vial.neb 1 Vial NEB PRN QID PRN Proair Hfa Inhaler (Albuterol Sulfate) 8.5 Gm Hfa.aer.ad 1 Puff INH PRN QID PRN Tudorza Pressair (Aclidinium [place]) 400 Mcg Aer.pow.ba 400 Mcg IH BID Vitals/I & O Vital Sign - Last 24 Hours 04/16/16 04/16/16 04/16/16 04/16/16 15:00 15:30 19:59 20:00 Temp 97.9 99.0 97.9 99.0 Pulse 50 86 Resp 24 24 B/P 113/54 124/71 Pulse Ox 94 90 96 O2 Delivery BiPAP/CPAP BiPAP/CPAP BiPAP/CPAP Nasal Cannula O2 Flow Rate 4.0 04/16/16 04/16/16 04/16/16 04/16/16 20:07 20:52 21:55 23:40 Pulse 83 Resp 20 B/P 150/80 Pulse Ox 90 90 O2 Delivery BiPAP/CPAP Venturi Mask O2 Flow Rate 4.0 4.0 04/17/16 04/17/16 04/17/16 04/17/16 00:11 03:42 07:28 07:32 Temp 97.7 97.9 97.7 97.7 97.9 97.7 Pulse 80 89 Resp 20 20 B/P 109/69 129/72 Pulse Ox 90 93 94 97 O2 Delivery Nasal Cannula Room Air Venturi Mask Venturi Mask O2 Flow Rate 6.0 04/17/16 04/17/16 04/17/16 04/17/16 08:00 08:54 08:55 11:00 Temp 98.1 98.1 Pulse 89 89 72 Resp 20 B/P 129/72 129/72 106/66 Pulse Ox 88 O2 Delivery Nasal Cannula Nasal Cannula O2 Flow Rate 6.0 5.0 04/17/16 11:55 Pulse Ox 97 O2 Delivery Nasal Cannula O2 Flow Rate 5.0 Intake and Output 04/16/16 04/16/16 04/17/16 15:00 23:00 07:00 Intake Total 650 ml 150 ml Output Total 600 ml 350 ml Balance 50 ml -200 ml GREYSON SMILEY MD Apr 17, 2016 13:36
[2016-04-17 15:00] VITALS: BP 97/57
[2016-04-17] MEDS: LEVOFLOXACIN 250 MG TABLET. PO SCH (15:40)
[2016-04-17 20:32] VITALS: BP 102/63
[2016-04-17] MEDS: ATORVASTATIN CALCIUM 20 MG TABLET PO SCH (21:16)
[2016-04-17 23:17] VITALS: BP 106/68
[2016-04-18 03:00] VITALS: BP 122/71
[2016-04-18 05:30] LABS: BASO % 0 % (0-3); EOS % 4 % (0-3); HEMATOCRIT 25.7 % (39.0-53.0); HEMOGLOBIN 8.2 g/dL (13.0-17.5); LYMPH # 1.3 x10^3/uL (1.0-4.8); LYMPH % 38 % (24-48); MEAN CORPUSCULAR HEMOGLOBIN 33 pg (25-35); MEAN CORPUSCULAR HGB CONC 32 g/dL (31-37); MEAN CORPUSCULAR VOLUME 102 fL (79-100); MONO % 15 % (0-9); NEUT % 43 % (31-73); PLATELET COUNT 217 x10^3/uL (140-400); RED BLOOD COUNT 2.52 x10^6/uL (4.30-5.70); RED CELL DISTRIBUTION WIDTH 14.4 % (11.5-14.5); WHITE BLOOD COUNT 3.5 x10^3/uL (4.0-11.0)
[2016-04-18] MEDS: LEVOFLOXACIN 250 MG TABLET. PO SCH (06:09)
[2016-04-18 07:00] VITALS: BP 111/66
[2016-04-18] MEDS: IPRATRPIUM/ALBUTEROL 0.5/2.5MG 3 ML NEBU. NEB SCH ×4 (08:02→20:18)
[2016-04-18] MEDS: STRIVERDI RESPIMAT INH SCH (09:00)
[2016-04-18] MEDS: CALCIUM CARB/VIT D3 500/200 TABLET PO SCH (09:00)
--- NOTE | 2016-04-18 09:11 | PDOC ---
CARDIO Progress Notes Date and Time Date of Service 04/18/2016 Time of Evaluation 0907 Subjective Subjective: No Chest Pain, No Palpitations, No Dizziness, Other (feels much better) Vitals Vitals Vital Signs Date Time Temp Pulse Resp B/P Pulse Ox O2 Delivery O2 Flow Rate FiO2 04/18/16 08:03 97 Nasal Cannula 4.0 04/18/16 07:00 98.0 84 20 111/66 98.0 Weight Weight [ ] Input and Output Intake and Output Intake and Output 04/18/16 07:00 Intake Total 1310 ml Output Total 750 ml Balance 560 ml Intake Oral 1310 ml Output Urine Total 750 ml Laboratory Labs Laboratory Tests Test 04/18/16 05:14 White Blood Count 3.5x10^3/uL (4.0-11.0) Red Blood Count 2.52x10^6/uL (4.30-5.70) Hemoglobin 8.2g/dL (13.0-17.5) Hematocrit 25.7% (39.0-53.0) Mean Corpuscular Volume 102fL (79-100) Mean Corpuscular Hemoglobin 33pg (25-35) Mean Corpuscular Hemoglobin Concent 32g/dL (31-37) Red Cell Distribution Width 14.4% (11.5-14.5) Platelet Count 217x10^3/uL (140-400) Neutrophils (%) (Auto) 43% (31-73) Lymphocytes (%) (Auto) 38% (24-48) Monocytes (%) (Auto) 15% (0-9) Eosinophils (%) (Auto) 4% (0-3) Basophils (%) (Auto) 0% (0-3) Neutrophils # (Auto) 1.5x10^3uL (1.8-7.7) Lymphocytes # (Auto) 1.3x10^3/uL (1.0-4.8) Monocytes # (Auto) 0.5x10^3/uL (0.0-1.1) Eosinophils # (Auto) 0.1x10^3/uL (0.0-0.7) Basophils # (Auto) 0.0x10^3/uL (0.0-0.2) Microbiology Micro Microbiology 04/15/16 Blood Culture - Preliminary, Resulted NO GROWTH AFTER 2 DAYS 04/13/16 Gram Stain - Final, Complete 04/12/16 Urine Culture - Final, Complete 04/12/16 Urine Culture Result 1 (KAREN) - Final, Complete Physical Exam HEENT: Neck Supple W Full Motion Chest: Symmetric LUNGS: Other (coarse) Heart: S1S2, other (tele: bi-V paced) Abdomen: Soft N/T Extremities: No Edema Neurology: alert, oriented, follow commands Assessment Assessment 1. 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 LLL pneumonia with COPD([facility] FEV-1: 0.54, 11/2014; FEV1/FVC 26%) on abx - per PULM also with 6 mm LLL SPN leukopenic 3. atrial fib, chronic per [facility] currently appears to be sinus underlying on tele with intermittent Bi-V pacing Eliquis on hold due to hematuria no AF/AT on ICD interrogation rate controlled with BB 4. HTN continue meds as controlled 5. HLD continue meds 6. protein calorie malnutrition long standing problem [facility] dietitian onofre palominoing Will follow peripherally Please contact for further assistance Recommend f/u with Cardiology @ [facility] about 10 days to 2 weeks after discharge TAYLOR LONDON APRN Apr 18, 2016 09:11
[2016-04-18] MEDS: SENNOSIDES/DOCUSATE 8.6/50MG TABLET. PO SCH (09:25)
[2016-04-18] MEDS: METOPROLOL SUCC 24HR ER 50 MG TAB.ER.24H. PO SCH (09:26)
[2016-04-18] MEDS: LISINOPRIL 20 MG TABLET PO SCH (09:26)
[2016-04-18] MEDS: GUAIFENESIN 200 MG/10 ML LIQUID. PO SCH ×4 (09:27→20:06)
[2016-04-18] MEDS: PHENAZOPYRIDINE 200 MG TABLET. PO SCH ×3 (09:27→20:06)
[2016-04-18] MEDS: FAMOTIDINE 20 MG TABLET. PO SCH (09:27)
[2016-04-18 11:00] VITALS: BP 92/68
--- NOTE | 2016-04-18 13:11 | PDOC ---
PULMONARY PROGRESS NOTES Subjective no increase soa much better after BIPAP ABG improved Vitals Vital Signs Date Time Temp Pulse Resp B/P Pulse Ox O2 Delivery O2 Flow Rate FiO2 04/18/16 11:22 93 Nasal Cannula 4.0 04/18/16 11:00 98.1 58 22 92/68 98.1 ROS: No Nausea, No Chest Pain, No Abdominal Pain, No Increase Cough General: Alert, No acute distress HEENT: Other (nc at perrl, poor dentition, nose inflamed mucosa) Lungs: Other (decrease bs) Cardiovascular: S1, S2 Abdomen: Soft, Non-tender Neuro Exam: Alert Extremities: No Edema Skin: Warm Labs Laboratory Tests Test 04/16/16 14:00 04/17/16 03:38 04/18/16 05:14 O2 Saturation 89% (92-99) Arterial Blood pH 7.46 (7.35-7.45) Arterial Blood pCO2 at Patient Temp 60mmHg (35-46) Arterial Blood pO2 at Patient Temp 54mmHg (65-108) Arterial Blood HCO3 41mmol/L (21-28) Arterial Blood Base Excess 15mmol/L (-3-3) FiO2 25.0 White Blood Count 4.8x10^3/uL (4.0-11.0) 3.5x10^3/uL (4.0-11.0) Red Blood Count 2.40x10^6/uL (4.30-5.70) 2.52x10^6/uL (4.30-5.70) Hemoglobin 7.8g/dL (13.0-17.5) 8.2g/dL (13.0-17.5) Hematocrit 25.0% (39.0-53.0) 25.7% (39.0-53.0) Mean Corpuscular Volume 104fL (79-100) 102fL (79-100) Mean Corpuscular Hemoglobin 32pg (25-35) 33pg (25-35) Mean Corpuscular Hemoglobin Concent 31g/dL (31-37) 32g/dL (31-37) Red Cell Distribution Width 14.3% (11.5-14.5) 14.4% (11.5-14.5) Platelet Count 184x10^3/uL (140-400) 217x10^3/uL (140-400) Neutrophils (%) (Auto) 54% (31-73) 43% (31-73) Lymphocytes (%) (Auto) 31% (24-48) 38% (24-48) Monocytes (%) (Auto) 13% (0-9) 15% (0-9) Eosinophils (%) (Auto) 1% (0-3) 4% (0-3) Basophils (%) (Auto) 0% (0-3) 0% (0-3) Neutrophils # (Auto) 2.6x10^3uL (1.8-7.7) 1.5x10^3uL (1.8-7.7) Lymphocytes # (Auto) 1.5x10^3/uL (1.0-4.8) 1.3x10^3/uL (1.0-4.8) Monocytes # (Auto) 0.6x10^3/uL (0.0-1.1) 0.5x10^3/uL (0.0-1.1) Eosinophils # (Auto) 0.1x10^3/uL (0.0-0.7) 0.1x10^3/uL (0.0-0.7) Basophils # (Auto) 0.0x10^3/uL (0.0-0.2) 0.0x10^3/uL (0.0-0.2) Sodium Level 148mmol/L (136-145) Potassium Level 3.9mmol/L (3.5-5.1) Chloride Level 106mmol/L (98-107) Carbon Dioxide Level 40mmol/L (21-32) Anion Gap 2 (6-14) Blood Urea Nitrogen 33mg/dL (8-26) Creatinine 0.8mg/dL (0.7-1.3) Estimated GFR (Cockcroft-Gault) 114.7 Glucose Level 113mg/dL (70-99) Calcium Level 9.3mg/dL (8.5-10.1) Laboratory Tests Test 04/18/16 05:14 White Blood Count 3.5x10^3/uL (4.0-11.0) Red Blood Count 2.52x10^6/uL (4.30-5.70) Hemoglobin 8.2g/dL (13.0-17.5) Hematocrit 25.7% (39.0-53.0) Mean Corpuscular Volume 102fL (79-100) Mean Corpuscular Hemoglobin 33pg (25-35) Mean Corpuscular Hemoglobin Concent 32g/dL (31-37) Red Cell Distribution Width 14.4% (11.5-14.5) Platelet Count 217x10^3/uL (140-400) Neutrophils (%) (Auto) 43% (31-73) Lymphocytes (%) (Auto) 38% (24-48) Monocytes (%) (Auto) 15% (0-9) Eosinophils (%) (Auto) 4% (0-3) Basophils (%) (Auto) 0% (0-3) Neutrophils # (Auto) 1.5x10^3uL (1.8-7.7) Lymphocytes # (Auto) 1.3x10^3/uL (1.0-4.8) Monocytes # (Auto) 0.5x10^3/uL (0.0-1.1) Eosinophils # (Auto) 0.1x10^3/uL (0.0-0.7) Basophils # (Auto) 0.0x10^3/uL (0.0-0.2) Medications Active Scripts Medications Dose Route/Sig Days Date Category Nutritional Shake (Lactose-Reduced Food) 237 Ml Liquid 237 Ml PO BID 04/12/16 Reported Calcium 500 + Vit D 200 Tablet (Calcium Carbonate/Vitamin D3) 1 Each Tablet 1 Each PO 04/12/16 Reported Furosemide 20 Mg Tablet 10 Mg PO PRN PRN 04/12/16 Reported Polyethylene Glycol 3350 17 Gm Powd.pack 17 Gm PO PRN DAILY PRN 04/12/16 Reported Phenazopyridine Hcl 200 Mg Tablet 1 Tab PO TID 04/12/16 Reported Striverdi Respimat (Olodaterol HCl) 4 Gm Mist.inhal 4 Gm IH DAILY 04/12/16 Reported Metoprolol Succinate 50 Mg Tab.er.24h 25 Mg PO 04/12/16 Reported Lisinopril 20 Mg Tablet 1 Tab PO DAILY 04/12/16 Reported Lidocaine Hcl 5 Ml Jel..ml. 5 Ml MM PRN Q4HRS PRN 04/12/16 Reported Senna-Docusate Sodium Tablet (Sennosides/Docusate Sodium) 1 Each Tablet 1 Each PO 04/12/16 Reported Vitamin D-3 (Cholecalciferol (Vitamin D3)) 2,000 Unit Tablet 1,000 Unit PO 04/12/16 Reported Atorvastatin Calcium 20 Mg Tablet 1 Tab PO DAILY 04/12/16 Reported Eliquis (Apixaban) 5 Mg Tablet 5 Mg PO BID 04/12/16 Reported Albuterol Sulfate Conc Neb Soln (Albuterol Sulfate) 2.5 Mg/0.5 Ml Vial.neb 1 Vial NEB PRN QID PRN 04/12/16 Reported Proair Hfa Inhaler (Albuterol Sulfate) 8.5 Gm Hfa.aer.ad 1 Puff INH PRN QID PRN 04/12/16 Reported Tudorza Pressair (Aclidinium [place]) 400 Mcg Aer.pow.ba 400 Mcg IH BID 04/12/[address] of chest reviewed, No acute finding seen. Extensive emphysematous changes in the lungs. Scattered areas of volume loss in the lungs likely reflect compressive atelectasis and scar. Superimposed pneumonia in the left lower lobe is not entirely excluded Solitary 6 mm pulmonary nodule in left upper Impression . 1. Abnormal ct chest with Left upper lobe nodule, nodular scarring LLL, basal atelectasis vs ? pneumonia, severe bullous COPD 2. pneumonia. 3. Chronic respiratory failure with acute decompensation/ treated with BIPAP 4. Significant weight loss, body mass index of 15.1. 5. Moderate protein malnutrition, present upon admission. 6. Leukopenia. 7. LAM Plan . much better after BIPAP ABG improved 1. Recommend continue current antibiotics and nebulized treatments. 2. ct of chest reviewed, needs full ct for SHARLA nodule in 3 mon. . 3. Consult dietitian for malnutrition. 4. Continue oxygen supplementation. 5. on eliquis, monitor for bleeding 6. bronchodilator 7. pepcid for gi prophylaxis needs rehab/ dc plans DAVIAN GUNTER MD Apr 18, 2016 13:11
--- NOTE | 2016-04-18 14:20 | PDOC ---
PROGRESS NOTES Chief Complaint Chief Complaint 1. CAP needing inpt management 2. ACUTE HYPERCApneic, hypoxic RESPI FAILURE NOW NIPPV 2. Atrial fib in MVR /RVR intermittently on elliquis, chronic 3. 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 COnstipation 6. UTI 7. 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 LALO, vasomotor 10. PAncytopenia from sepsis? 11. Thrombocytopenia on elliquis History of Present Illness History of Present Illness ON nc now on Bipap prn NO inc in SOA bUt Blood tinged urine still persists despite - elliquis being held hgb stable though PLAn: Follow pumo recs BIPAP prn Consult urology bec of persistent hematuria SW for SNU - PT recs SNU COnt iV cap coverage SCDs - no lovenox or heparin pls Vitals Vitals Vital Signs Date Time Temp Pulse Resp B/P Pulse Ox O2 Delivery O2 Flow Rate FiO2 04/18/16 11:22 93 Nasal Cannula 4.0 04/18/16 11:00 98.1 58 22 92/68 98.1 Physical Exam General: Alert, Oriented X3, Cooperative, mild distress, Other (appears cachexic) Heart: Normal S1, Normal S2, No murmurs, Other (no carotid bruits; ICD in left pectoral region with well healed pocket; tele: A-sensed with V-pacing) Lungs: Other (decrease bs) Abdomen: No tenderness Extremities: No edema, Normal pulses Skin: No rashes Labs LABS Laboratory Tests Test 04/18/16 05:14 White Blood Count 3.5x10^3/uL (4.0-11.0) Red Blood Count 2.52x10^6/uL (4.30-5.70) Hemoglobin 8.2g/dL (13.0-17.5) Hematocrit 25.7% (39.0-53.0) Mean Corpuscular Volume 102fL (79-100) Mean Corpuscular Hemoglobin 33pg (25-35) Mean Corpuscular Hemoglobin Concent 32g/dL (31-37) Red Cell Distribution Width 14.4% (11.5-14.5) Platelet Count 217x10^3/uL (140-400) Neutrophils (%) (Auto) 43% (31-73) Lymphocytes (%) (Auto) 38% (24-48) Monocytes (%) (Auto) 15% (0-9) Eosinophils (%) (Auto) 4% (0-3) Basophils (%) (Auto) 0% (0-3) Neutrophils # (Auto) 1.5x10^3uL (1.8-7.7) Lymphocytes # (Auto) 1.3x10^3/uL (1.0-4.8) Monocytes # (Auto) 0.5x10^3/uL (0.0-1.1) Eosinophils # (Auto) 0.1x10^3/uL (0.0-0.7) Basophils # (Auto) 0.0x10^3/uL (0.0-0.2) Review of Systems Review of Systems asleep did not awaken Assessment and Plan Assessmemt and Plan Problems Medical Problems: (1) Pneumonia Status: Acute Problems: Comment Review of Relevant I have reviewed the following items leonie (where applicable) has been applied. Labs Laboratory Tests Test 04/17/16 03:38 04/18/16 05:14 White Blood Count 4.8x10^3/uL (4.0-11.0) 3.5x10^3/uL (4.0-11.0) Red Blood Count 2.40x10^6/uL (4.30-5.70) 2.52x10^6/uL (4.30-5.70) Hemoglobin 7.8g/dL (13.0-17.5) 8.2g/dL (13.0-17.5) Hematocrit 25.0% (39.0-53.0) 25.7% (39.0-53.0) Mean Corpuscular Volume 104fL (79-100) 102fL (79-100) Mean Corpuscular Hemoglobin 32pg (25-35) 33pg (25-35) Mean Corpuscular Hemoglobin Concent 31g/dL (31-37) 32g/dL (31-37) Red Cell Distribution Width 14.3% (11.5-14.5) 14.4% (11.5-14.5) Platelet Count 184x10^3/uL (140-400) 217x10^3/uL (140-400) Neutrophils (%) (Auto) 54% (31-73) 43% (31-73) Lymphocytes (%) (Auto) 31% (24-48) 38% (24-48) Monocytes (%) (Auto) 13% (0-9) 15% (0-9) Eosinophils (%) (Auto) 1% (0-3) 4% (0-3) Basophils (%) (Auto) 0% (0-3) 0% (0-3) Neutrophils # (Auto) 2.6x10^3uL (1.8-7.7) 1.5x10^3uL (1.8-7.7) Lymphocytes # (Auto) 1.5x10^3/uL (1.0-4.8) 1.3x10^3/uL (1.0-4.8) Monocytes # (Auto) 0.6x10^3/uL (0.0-1.1) 0.5x10^3/uL (0.0-1.1) Eosinophils # (Auto) 0.1x10^3/uL (0.0-0.7) 0.1x10^3/uL (0.0-0.7) Basophils # (Auto) 0.0x10^3/uL (0.0-0.2) 0.0x10^3/uL (0.0-0.2) Sodium Level 148mmol/L (136-145) Potassium Level 3.9mmol/L (3.5-5.1) Chloride Level 106mmol/L (98-107) Carbon Dioxide Level 40mmol/L (21-32) Anion Gap 2 (6-14) Blood Urea Nitrogen 33mg/dL (8-26) Creatinine 0.8mg/dL (0.7-1.3) Estimated GFR (Cockcroft-Gault) 114.7 Glucose Level 113mg/dL (70-99) Calcium Level 9.3mg/dL (8.5-10.1) Laboratory Tests Test 04/18/16 05:14 White Blood Count 3.5x10^3/uL (4.0-11.0) Red Blood Count 2.52x10^6/uL (4.30-5.70) Hemoglobin 8.2g/dL (13.0-17.5) Hematocrit 25.7% (39.0-53.0) Mean Corpuscular Volume 102fL (79-100) Mean Corpuscular Hemoglobin 33pg (25-35) Mean Corpuscular Hemoglobin Concent 32g/dL (31-37) Red Cell Distribution Width 14.4% (11.5-14.5) Platelet Count 217x10^3/uL (140-400) Neutrophils (%) (Auto) 43% (31-73) Lymphocytes (%) (Auto) 38% (24-48) Monocytes (%) (Auto) 15% (0-9) Eosinophils (%) (Auto) 4% (0-3) Basophils (%) (Auto) 0% (0-3) Neutrophils # (Auto) 1.5x10^3uL (1.8-7.7) Lymphocytes # (Auto) 1.3x10^3/uL (1.0-4.8) Monocytes # (Auto) 0.5x10^3/uL (0.0-1.1) Eosinophils # (Auto) 0.1x10^3/uL (0.0-0.7) Basophils # (Auto) 0.0x10^3/uL (0.0-0.2) Microbiology 04/15/16 Blood Culture - Preliminary, Resulted NO GROWTH AFTER 2 DAYS 04/13/16 Gram Stain - Final, Complete 04/12/16 Urine Culture - Final, Complete 04/12/16 Urine Culture Result 1 (KAREN) - Final, Complete Medications Current Medications Ondansetron HCl (Zofran) 4 mg PRN Q6HRS PRN IV NAUSEA/VOMITING 1ST CHOICE; Start 04/12/16 at 10:15 Prochlorperazine Edisylate (Compazine) 10 mg PRN Q6HRS PRN IV NAUSEA/VOMITING 2ND CHOICE; Start 04/12/16 at 10:15 Prochlorperazine (Compazine) 25 mg PRN Q12HR PRN NH NAUSEA/VOMITING; Start at 10:15 Al Hydrox/Mg Hydrox/Simethicone (Mylanta Plus Xs) 30 ml PRN Q3HRS PRN PO HEARTBURN / GAS; Start 04/12/16 at 10:15 Calcium Carbonate/ Glycine (Tums) 500 mg PRN Q3HRS PRN PO UPSET STOMACH Last administered on 04/16/16t 09:46; Start 04/12/16 at 10:15 Oxycodone HCl (Roxicodone) 5 mg PRN Q3HRS PRN PO BREAKTHROUGH PAIN Last administered on 04/16/16 20:52; Start 04/12/16 at 10:15 Morphine Sulfate 1 mg PRN Q1HR PRN IV PAIN; Start 04/12/16 at 10:15 Magnesium Hydroxide (Milk Of Magnesia) 2,400 mg PRN Q12HR PRN PO CONSTIPATION; Start 04/12/16 at 10:15 Lactulose 20 gm PRN Q12HR PRN PO CONSTIPATION; Start 04/12/16 at 10:15 Bisacodyl (Dulcolax Supp) 10 mg PRN DAILY PRN NH CONSTIPATION; Start 04/12/16 at 10:15 Apixaban (Eliquis) 5 mg BID PO Last administered on 04/13/16 09:27; Start at 10:30; Stop 04/13/16 at 14:44; Status DC Atorvastatin Calcium (Lipitor) 20 mg QHS PO Last administered on 04/17/16 21: 16; Start 04/12/16 at 21:00 Calcium/Vitamin D (Oscal D 500mg/ 200uts) 1 tab DAILY PO Last administered on 08:53; Start 04/12/16 at 11:00 Furosemide (Lasix) 10 mg DAILY PRN PO Fluid retention; Start 04/12/16 at 10:15 ; Stop 04/12/16 at 10:15; Status DC Lidocaine HCl (Xylocaine 2% Topical 5gm Tube) 1 belkys PRN Q4HRS PRN TP PAIN; Start 04/12/16 at 10:15 Lisinopril (Prinivil) 20 mg DAILY PO Last administered on 04/18/16 09:26; Start 04/12/16 at 10:30 Metoprolol Succinate (Toprol Xl) 25 mg DAILY PO Last administered on 04/18/16 09:26; Start 04/12/16 at 10:30 Phenazopyridine HCl (Pyridium) 200 mg TID PO Last administered on 04/18/16 09: 27; Start 04/12/16 at 14:00 Polyethylene Glycol (miraLAX PACKET) 17 gm PRN DAILY PRN PO CONSTIPATION; Start 04/12/16 at 10:15 Senna/Docusate Sodium (Senna Plus) 1 tab DAILY PO Last administered on 09:25; Start 04/12/16 at 10:30 Non-Formulary Medication 400 mcg BID IH ; Start 04/12/16 at 21:00; Status UNV Non-Formulary Medication 1 vial PRN QID PRN NEB SHORTNESS OF BREATH; Start at 10:15; Stop 04/12/16 at 10:36; Status DC Non-Formulary Medication 1 puff PRN QID PRN INH SHORTNESS OF BREATH; Start at 10:15; Stop 04/12/16 at 10:36; Status DC Non-Formulary Medication 237 ml BID PO ; Start 04/12/16 at 21:00; Stop 04/12/16 at 21:00; Status DC Non-Formulary Medication 4 gm DAILY IH ; Start 04/13/16 at 09:00; Stop 04/13/16 at 09:00; Status DC Info (Anti-Coagulation Monitoring By Pharmacy) 1 each PRN DAILY PRN MC SEE COMMENTS Last administered on 04/13/16 11:07; Start 04/12/16 at 10:30 Albuterol/ Ipratropium (Duoneb) 3 ml RTQID NEB ; Start 04/12/16 at 12:00; Status UNV Albuterol Sulfate 2.5 mg 2.5 mg PRN Q6HRS PRN NEB SHORTNESS OF BREATH Last administered on 04/16/16 05:07; Start 04/12/16 at 10:45 Levofloxacin/ Dextrose (LEVAQUIN 500mg PREMIX) 100 ml @ 100 mls/hr Q24H IV Last administered on 04/12/16 17:11; Start 04/12/16 at 14:00; Stop 04/13/16 at 11:06; Status DC Guaifenesin (Robitussin) 200 mg QID PO Last administered on 04/18/16 09:27; Start 04/12/16 at 17:00 Albuterol/ Ipratropium (Duoneb) 3 ml RTQID NEB Last administered on 04/18/16 11:20; Start 04/12/16 at 16:00 Non-Formulary Medication 1 ea 1 ea DAILY INH Last administered on 04/18/16 09: 00; Start 04/13/16 at 09:00 Levofloxacin/ Dextrose (LEVAQUIN 250mg PREMIX) 50 ml @ 50 mls/hr Q24H IV Last administered on 04/16/16 18:26; Start 04/13/16 at 17:00; Stop 04/17/16 at 15:08 ; Status DC Lidocaine (Lidoderm) 1 patch DAILY TD Last administered on 04/17/16 08:53; Start 04/13/16 at 14:45 Famotidine (Pepcid) 20 mg DAILY PO Last administered on 04/18/16 09:27; Start 04/15/16 at 09:00 Apixaban (Eliquis) 5 mg BID PO Last administered on 04/15/16 09:05; Start at 12:00; Stop 04/15/16 at 12:30; Status DC Levofloxacin (Levaquin) 250 mg DAILY06 PO Last administered on 04/18/16 06:09 ; Start 04/17/16 at 16:00 Active Scripts Active Reported Nutritional Shake (Lactose-Reduced Food) 237 Ml Liquid 237 Ml PO BID Calcium 500 + Vit D 200 Tablet (Calcium Carbonate/Vitamin D3) 1 Each Tablet 1 Each PO Furosemide 20 Mg Tablet 10 Mg PO PRN PRN Polyethylene Glycol 3350 17 Gm Powd.pack 17 Gm PO PRN DAILY PRN Phenazopyridine Hcl 200 Mg Tablet 1 Tab PO TID Striverdi Respimat (Olodaterol HCl) 4 Gm Mist.inhal 4 Gm IH DAILY Metoprolol Succinate 50 Mg Tab.er.24h 25 Mg PO Lisinopril 20 Mg Tablet 1 Tab PO DAILY Lidocaine Hcl 5 Ml Jel..ml. 5 Ml MM PRN Q4HRS PRN Senna-Docusate Sodium Tablet (Sennosides/Docusate Sodium) 1 Each Tablet 1 Each PO Vitamin D-3 (Cholecalciferol (Vitamin D3)) 2,000 Unit Tablet 1,000 Unit PO Atorvastatin Calcium 20 Mg Tablet 1 Tab PO DAILY Eliquis (Apixaban) 5 Mg Tablet 5 Mg PO BID Albuterol Sulfate Conc Neb Soln (Albuterol Sulfate) 2.5 Mg/0.5 Ml Vial.neb 1 Vial NEB PRN QID PRN Proair Hfa Inhaler (Albuterol Sulfate) 8.5 Gm Hfa.aer.ad 1 Puff INH PRN QID PRN Tudorza Pressair (Aclidinium [place]) 400 Mcg Aer.pow.ba 400 Mcg IH BID Vitals/I & O Vital Sign - Last 24 Hours 04/17/16 04/17/16 04/17/16 04/17/16 15:00 15:28 19:52 20:00 Temp 98.4 98.4 Pulse 82 Resp 20 B/P 97/57 Pulse Ox 96 97 96 O2 Delivery Room Air Nasal Cannula Nasal Cannula Nasal Cannula O2 Flow Rate 5.0 4.0 4.0 04/17/16 04/17/16 04/17/16 04/17/16 20:32 21:23 23:15 23:17 Temp 97.9 97.9 97.9 97.9 Pulse 89 71 Resp 16 16 B/P 102/63 106/68 Pulse Ox 94 91 93 O2 Delivery Nasal Cannula Nasal Cannula BiPAP/CPAP Room Air O2 Flow Rate 4.0 4.0 04/18/16 04/18/16 04/18/16 04/18/16 03:00 07:00 08:00 08:03 Temp 97.9 98.0 97.9 98.0 Pulse 83 84 Resp 24 20 B/P 122/71 111/66 Pulse Ox 92 95 97 O2 Delivery Nasal Cannula Nasal Cannula Nasal Cannula Nasal Cannula O2 Flow Rate 4.0 4.0 4.0 4.0 04/18/16 04/18/16 04/18/16 04/18/16 09:26 09:26 11:00 11:22 Temp 98.1 98.1 Pulse 84 84 58 Resp 22 B/P 111/66 111/66 92/68 Pulse Ox 90 93 O2 Delivery Nasal Cannula Nasal Cannula O2 Flow Rate 4.0 4.0 Intake and Output 04/17/16 04/17/16 04/18/16 15:00 23:00 07:00 Intake Total 420 ml 120 ml 770 ml Output Total 350 ml 400 ml Balance 420 ml -230 ml 370 ml GREYSON SMILEY MD Apr 18, 2016 14:19
[2016-04-18] MEDS: LIDOCAINE (700MG/PATCH) PATCH. TD SCH (14:45)
[2016-04-18 15:00] VITALS: BP 101/59
--- NOTE | 2016-04-18 18:51 | PDOC ---
Provider Note Provider Note Urology: c/c Hematuria? Patient examined, chart reviewed. Patient on chronic indwelling khan catheter due to BPH, and told he is not a surgical candidate due to co-morbidities. Patient not experiencing gross hematuria, color due to Pyridium 200 mg tid. Plan: stop Pyridium no intervention warranted at this time. Thanks, IBAN GARCIA DO Apr 18, 2016 18:51
[2016-04-18 19:00] VITALS: BP 106/61
[2016-04-18] MEDS: ATORVASTATIN CALCIUM 20 MG TABLET PO SCH (20:06)
[2016-04-18 23:00] VITALS: BP 103/62
[2016-04-19 03:00] VITALS: BP 101/53
[2016-04-19] MEDS: LEVOFLOXACIN 250 MG TABLET. PO SCH (06:23)
[2016-04-19 06:43] VITALS: BP 93/50
[2016-04-19] MEDS: IPRATRPIUM/ALBUTEROL 0.5/2.5MG 3 ML NEBU. NEB SCH ×4 (07:17→20:46)
[2016-04-19] MEDS: PHENAZOPYRIDINE 200 MG TABLET. PO SCH (08:21)
[2016-04-19] MEDS: LISINOPRIL 20 MG TABLET PO SCH (09:00)
[2016-04-19] MEDS: STRIVERDI RESPIMAT INH SCH (09:00)
[2016-04-19] MEDS: METOPROLOL SUCC 24HR ER 50 MG TAB.ER.24H. PO SCH (09:00)
[2016-04-19] MEDS: CALCIUM CARB/VIT D3 500/200 TABLET PO SCH (09:00)
[2016-04-19] MEDS: ALBUTEROL SULFATE 2.5 MG/3 ML NEBU. NEB PRN (09:41)
[2016-04-19] MEDS: GUAIFENESIN 200 MG/10 ML LIQUID. PO SCH ×4 (11:05→21:10)
[2016-04-19] MEDS: SENNOSIDES/DOCUSATE 8.6/50MG TABLET. PO SCH (11:06)
[2016-04-19] MEDS: FAMOTIDINE 20 MG TABLET. PO SCH (11:09)
[2016-04-19] MEDS: CALCIUM CARBONATE 500 MG TAB.CHEW PO PRN (11:10)
[2016-04-19] MEDS: LIDOCAINE (700MG/PATCH) PATCH. TD SCH (11:11)
[2016-04-19 11:32] VITALS: BP 85/44
[2016-04-19] MEDS ORDERED: IV NORMAL SALINE 1000ML BAG 1,000 ML IV ONE (12:15)
--- NOTE | 2016-04-19 12:24 | PDOC ---
LETY GOINS PASSENGER BRAKEMAN 04/19/16 1224: CARDIO Progress Notes Date and Time Date of Service 04/19/2016 Time of Evaluation 1200 Subjective Subjective: No Chest Pain, No shortness of breath, No Palpitations, No Dizziness Vitals Vitals Vital Signs Date Time Temp Pulse Resp B/P Pulse Ox O2 Delivery O2 Flow Rate FiO2 04/19/16 11:32 99.3 54 18 85/44 96 Nasal Cannula 2.5 99.3 Weight Weight [ ] Input and Output Intake and Output Intake and Output 04/19/16 07:00 Intake Total 750 ml Output Total 750 ml Balance 0 ml Intake Oral 750 ml Output Urine Total 750 ml # Bowel Movements 2 Microbiology Micro Microbiology 04/15/16 Blood Culture - Preliminary, Resulted NO GROWTH AFTER 3 DAYS 04/13/16 Gram Stain - Final, Complete 04/12/16 Urine Culture - Final, Complete 04/12/16 Urine Culture Result 1 (KAREN) - Final, Complete Physical Exam HEENT: Neck Supple W Full Motion Chest: Symmetric LUNGS: Other (diffuse wheeze) Heart: S1S2, other (tele: bi-V paced) Abdomen: Soft N/T Extremities: No Edema, No Calf Tenderness Neurology: alert, oriented, follow commands Assessment Assessment 1. NSVT: none significant overnight 2. AICD in situ: Normal functioning device. AV-V pacing intermittent. 3. LLL pneumonia with COPD 4. [facility] 5. HTN: SBP in the 85s today, sitting doing well 6. HLP 7. Protein calorie malnutrition 8. Chronic systolic CHF: compensated. 9. Cardiomyopathy: nonischemic? No [facility] records obtained Recommendations 1. Called today for low BP. OK to have BP 90-100 2. DC IVF and push po fluids with max of 2000 ml daily 3. UOP ok, BMP and Mg today. 4. Daily weight 5. No records still from [facility] 6. Continue with ACEi and low dose BB per BP trend. Low dose diuretic therapy when BP is consistently adequate 7. Continue with secondary prevention 8. Resume apixaban when ok with others. 9. Significant chronic conditions, consider palliative consult to address aggressive measures KYLE BRISCOE MD 04/19/16 9389: CARDIO Progress Notes Plan Plan Pt. seen and examined. Agree with above TOUCH UP EDGER note. No acute issues overnight. BP is low but expected given his severe CMP Supportive care. No excessive IVF. Will consider palliative care given his severe diminished state. Will follow peripherally. LETY GOINS APRN Apr 19, 2016 12:24 KYLE BRISCOE MD Apr 19, 2016 16:39
--- NOTE | 2016-04-19 12:52 | PDOC ---
PULMONARY PROGRESS NOTES Subjective no increase soa much better after BIPAP ABG improved Vitals Vital Signs Date Time Temp Pulse Resp B/P Pulse Ox O2 Delivery O2 Flow Rate FiO2 04/19/16 11:32 99.3 54 18 85/44 96 Nasal Cannula 2.5 99.3 ROS: No Nausea, No Chest Pain, No Abdominal Pain, No Increase Cough General: Alert, No acute distress HEENT: Other (nc at perrl, poor dentition, nose inflamed mucosa) Lungs: Other (decrease bs) Cardiovascular: S1, S2 Abdomen: Soft, Non-tender Neuro Exam: Alert Extremities: No Edema Skin: Warm Labs Laboratory Tests Test 04/18/16 05:14 White Blood Count 3.5x10^3/uL (4.0-11.0) Red Blood Count 2.52x10^6/uL (4.30-5.70) Hemoglobin 8.2g/dL (13.0-17.5) Hematocrit 25.7% (39.0-53.0) Mean Corpuscular Volume 102fL (79-100) Mean Corpuscular Hemoglobin 33pg (25-35) Mean Corpuscular Hemoglobin Concent 32g/dL (31-37) Red Cell Distribution Width 14.4% (11.5-14.5) Platelet Count 217x10^3/uL (140-400) Neutrophils (%) (Auto) 43% (31-73) Lymphocytes (%) (Auto) 38% (24-48) Monocytes (%) (Auto) 15% (0-9) Eosinophils (%) (Auto) 4% (0-3) Basophils (%) (Auto) 0% (0-3) Neutrophils # (Auto) 1.5x10^3uL (1.8-7.7) Lymphocytes # (Auto) 1.3x10^3/uL (1.0-4.8) Monocytes # (Auto) 0.5x10^3/uL (0.0-1.1) Eosinophils # (Auto) 0.1x10^3/uL (0.0-0.7) Basophils # (Auto) 0.0x10^3/uL (0.0-0.2) Medications Active Scripts Medications Dose Route/Sig Days Date Category Nutritional Shake (Lactose-Reduced Food) 237 Ml Liquid 237 Ml PO BID 04/12/16 Reported Calcium 500 + Vit D 200 Tablet (Calcium Carbonate/Vitamin D3) 1 Each Tablet 1 Each PO 04/12/16 Reported Furosemide 20 Mg Tablet 10 Mg PO PRN PRN 04/12/16 Reported Polyethylene Glycol 3350 17 Gm Powd.pack 17 Gm PO PRN DAILY PRN 04/12/16 Reported Phenazopyridine Hcl 200 Mg Tablet 1 Tab PO TID 04/12/16 Reported Striverdi Respimat (Olodaterol HCl) 4 Gm Mist.inhal 4 Gm IH DAILY 04/12/16 Reported Metoprolol Succinate 50 Mg Tab.er.24h 25 Mg PO 04/12/16 Reported Lisinopril 20 Mg Tablet 1 Tab PO DAILY 04/12/16 Reported Lidocaine Hcl 5 Ml Jel..ml. 5 Ml MM PRN Q4HRS PRN 04/12/16 Reported Senna-Docusate Sodium Tablet (Sennosides/Docusate Sodium) 1 Each Tablet 1 Each PO 04/12/16 Reported Vitamin D-3 (Cholecalciferol (Vitamin D3)) 2,000 Unit Tablet 1,000 Unit PO 04/12/16 Reported Atorvastatin Calcium 20 Mg Tablet 1 Tab PO DAILY 04/12/16 Reported Eliquis (Apixaban) 5 Mg Tablet 5 Mg PO BID 04/12/16 Reported Albuterol Sulfate Conc Neb Soln (Albuterol Sulfate) 2.5 Mg/0.5 Ml Vial.neb 1 Vial NEB PRN QID PRN 04/12/16 Reported Proair Hfa Inhaler (Albuterol Sulfate) 8.5 Gm Hfa.aer.ad 1 Puff INH PRN QID PRN 04/12/16 Reported Tudorza Pressair (Aclidinium [place]) 400 Mcg Aer.pow.ba 400 Mcg IH BID 04/12/[address] of chest reviewed, No acute finding seen. Extensive emphysematous changes in the lungs. Scattered areas of volume loss in the lungs likely reflect compressive atelectasis and scar. Superimposed pneumonia in the left lower lobe is not entirely excluded Solitary 6 mm pulmonary nodule in left upper Impression . 1. Abnormal ct chest with Left upper lobe nodule, nodular scarring LLL, basal atelectasis vs ? pneumonia, severe bullous COPD 2. pneumonia. 3. Chronic respiratory failure with acute decompensation/ treated with BIPAP 4. Significant weight loss, body mass index of 15.1. 5. Moderate protein malnutrition, present upon admission. 6. Leukopenia. 7. LAM 8. severe CMP(EF10%) Plan . much better after BIPAP ABG improved 1. CAN dc antibiotics ,continue nebulized treatments. 2. ct of chest reviewed, needs follow up ct for SHARLA nodule in 3 mon. . 3. give IV fluids for low BP. 4. Continue oxygen supplementation. 5. on eliquis, monitor for bleeding 6. bronchodilator 7. pepcid for gi prophylaxis needs rehab 8. follow cardiology recommendations DAVIAN GUNTER MD Apr 19, 2016 12:52
--- NOTE | 2016-04-19 13:32 | PDOC ---
PROGRESS NOTES Chief Complaint Chief Complaint Acute hypoxic, hypercapnic respir failure ASSESSMENT AND PLAN 1. CAP: much improved. D/w Dr Jennings: ok for D/C from his standpoint 2. COPD exacerbation: improving 3. Afib: chronic with currently good rate control. 4. CHF: severe systolic/mild diastolic, with EF 10-15%. pacer/AICD in place 5. OAC: on eliquis previously. restart 6. HTN: meds mostly on hold 2/2 soft BP. cardiology input noted. 7. Thrombocytopenia: prob multifactorial, incl CHF, poss viral infect. recovered 8. Anemia: normochromic, normocytic, chronic, 2/2 CHF. monitor 9. PCM: severe. supplements 10. Constipation: bowel regimen 11. Hiatal hernia: no acute issues 12. Prognosis: poor. discussed with pt: he wishes DNR, amenable to Home hospice for CHF. consider [facility] Vitals Vitals Vital Signs Date Time Temp Pulse Resp B/P Pulse Ox O2 Delivery O2 Flow Rate FiO2 04/19/16 11:32 99.3 54 18 85/44 96 Nasal Cannula 2.5 99.3 Physical Exam General: Alert, Oriented X3, Cooperative, mild distress, Other (appears cachexic) Heart: Normal S1, Normal S2, No murmurs, Other ( ICD in L upper chest) Lungs: Clear, Other (decrease bs) Abdomen: Normal bowel sounds, Soft, No tenderness Extremities: No edema Skin: No rashes Review of Systems Review of Systems feels he is essentially at baseline. long hx heart failure and SOB CEZAR FRITZ MD Apr 19, 2016 13:32
[2016-04-19 15:38] VITALS: BP 94/58
[2016-04-19 19:30] VITALS: BP 103/62
[2016-04-19] MEDS: ATORVASTATIN CALCIUM 20 MG TABLET PO SCH (21:10)
--- NOTE | 2016-04-19 21:23 | CONS ---
DATE OF CONSULTATION: 04/18/2016 CHIEF COMPLAINT: Gross hematuria,? HISTORY OF PRESENT ILLNESS: A 71-year-old male that was admitted to the hospital due to pneumonia. He was transferred here from the [facility] in [place]. The patient has a history of atrial fibrillation. He normally takes Eliquis. The patient also has a history of BPH and chronic urinary retention, according to the patient, he is maintained on an indwelling Gates catheter because he was told that he is not a surgical candidate for a TURP procedure due to his comorbidities. His Gates catheter is changed every [address] [facility]. The patient is on Pyridium 200 mg 3 times a day. ALLERGIES: Reviewed. MEDICATIONS: List was reviewed. He is on Pyridium 200 mg 3 times a day. PAST MEDICAL HISTORY: The patient has a history of chronic urinary retention due to BPH. He is maintained on indwelling Gates catheter, history of recurrent pneumonia, atrial fibrillation. The patient was found to have urinary tract infection at the [facility] before he was transferred. PHYSICAL EXAMINATION: GENERAL DESCRIPTION: A 71-year-old male, cachectic in nature, alert, oriented, very friendly. He denies any acute pain. ABDOMEN: Soft, nontender. Negative for flank pain to palpation bilaterally. No palpable abdominal masses. No suprapubic tenderness. GENITALIA: The patient has indwelling Gates catheter draining urine, which is colored due to his Pyridium. I do not see any evidence of gross hematuria. RECTAL: Not performed. MUSCULOSKELETAL: Negative. LABORATORY DATA: Reviewed. Hemoglobin 8.2, hematocrit 25.7, platelet count 217,000. The patient's BUN 33, creatinine 0.8. Urinalysis, none on the chart. Urine culture showed less than 10,000 colonies of bacteria. IMPRESSION: Urine color secondary to Pyridium. No evidence of gross hematuria. PLAN: 1. The Pyridium can be discontinued and his urine color should return to normal. 2. No urological intervention warranted at this time. Thank you for the opportunity to participate in evaluation of this patient. IBNA GARCIA DO DR: CATHERINE/barbra JOB#: [id number] / [id number]
[2016-04-19 23:55] VITALS: BP 134/84
[2016-04-20] VITALS (7 sets, daily range): BP systolic 91–123; BP diastolic 53–74
[2016-04-20] MEDS: LEVOFLOXACIN 250 MG TABLET. PO SCH (05:55)
[2016-04-20] MEDS: IPRATRPIUM/ALBUTEROL 0.5/2.5MG 3 ML NEBU. NEB SCH ×4 (07:40→21:08)
[2016-04-20] MEDS: STRIVERDI RESPIMAT INH SCH (09:00)
[2016-04-20] MEDS: LIDOCAINE (700MG/PATCH) PATCH. TD SCH (09:00)
[2016-04-20] MEDS: CALCIUM CARB/VIT D3 500/200 TABLET PO SCH (09:23)
[2016-04-20] MEDS: SENNOSIDES/DOCUSATE 8.6/50MG TABLET. PO SCH (09:23)
[2016-04-20] MEDS: GUAIFENESIN 200 MG/10 ML LIQUID. PO SCH ×4 (09:23→20:20)
[2016-04-20] MEDS: METOPROLOL SUCC 24HR ER 50 MG TAB.ER.24H. PO SCH (09:23)
[2016-04-20] MEDS: FAMOTIDINE 20 MG TABLET. PO SCH (09:28)
[2016-04-20] MEDS: LISINOPRIL 20 MG TABLET PO SCH (09:28)
--- NOTE | 2016-04-20 14:18 | PDOC ---
PULMONARY PROGRESS NOTES Subjective no increase soa much better after BIPAP ABG improved Vitals Vital Signs Date Time Temp Pulse Resp B/P Pulse Ox O2 Delivery O2 Flow Rate FiO2 04/20/16 12:54 99 Nasal Cannula 4.0 04/20/16 11:00 98.2 74 18 96/61 98.2 ROS: No Nausea, No Chest Pain, No Abdominal Pain, No Increase Cough General: Alert, No acute distress HEENT: Other (nc at perrl, poor dentition, nose inflamed mucosa) Lungs: Clear, Other (decrease bs) Cardiovascular: S1, S2 Abdomen: Soft, Non-tender Neuro Exam: Alert Extremities: No Edema Skin: Warm Medications Active Scripts Medications Dose Route/Sig Days Date Category Nutritional Shake (Lactose-Reduced Food) 237 Ml Liquid 237 Ml PO BID 04/12/16 Reported Calcium 500 + Vit D 200 Tablet (Calcium Carbonate/Vitamin D3) 1 Each Tablet 1 Each PO 04/12/16 Reported Furosemide 20 Mg Tablet 10 Mg PO PRN PRN 04/12/16 Reported Polyethylene Glycol 3350 17 Gm Powd.pack 17 Gm PO PRN DAILY PRN 04/12/16 Reported Phenazopyridine Hcl 200 Mg Tablet 1 Tab PO TID 04/12/16 Reported Striverdi Respimat (Olodaterol HCl) 4 Gm Mist.inhal 4 Gm IH DAILY 04/12/16 Reported Metoprolol Succinate 50 Mg Tab.er.24h 25 Mg PO 04/12/16 Reported Lisinopril 20 Mg Tablet 1 Tab PO DAILY 04/12/16 Reported Lidocaine Hcl 5 Ml Jel..ml. 5 Ml MM PRN Q4HRS PRN 04/12/16 Reported Senna-Docusate Sodium Tablet (Sennosides/Docusate Sodium) 1 Each Tablet 1 Each PO 04/12/16 Reported Vitamin D-3 (Cholecalciferol (Vitamin D3)) 2,000 Unit Tablet 1,000 Unit PO 04/12/16 Reported Atorvastatin Calcium 20 Mg Tablet 1 Tab PO DAILY 04/12/16 Reported Eliquis (Apixaban) 5 Mg Tablet 5 Mg PO BID 04/12/16 Reported Albuterol Sulfate Conc Neb Soln (Albuterol Sulfate) 2.5 Mg/0.5 Ml Vial.neb 1 Vial NEB PRN QID PRN 04/12/16 Reported Proair Hfa Inhaler (Albuterol Sulfate) 8.5 Gm Hfa.aer.ad 1 Puff INH PRN QID PRN 04/12/16 Reported Tudorza Pressair (Aclidinium [facility]) 400 Mcg Aer.pow.ba 400 Mcg IH BID 04/12/[address] of chest reviewed, No acute finding seen. Extensive emphysematous changes in the lungs. Scattered areas of volume loss in the lungs likely reflect compressive atelectasis and scar. Superimposed pneumonia in the left lower lobe is not entirely excluded Solitary 6 mm pulmonary nodule in left upper Impression . 1. Abnormal ct chest with Left upper lobe nodule, nodular scarring LLL, basal atelectasis vs ? pneumonia, severe bullous COPD 2. pneumonia. 3. Chronic respiratory failure with acute decompensation/ treated with BIPAP 4. Significant weight loss, body mass index of 15.1. 5. Moderate protein malnutrition, present upon admission. 6. Leukopenia. 7. LAM 8. severe CMP(EF10%) Plan . much better after BIPAP ABG improved 1. PO antibiotics ,continue nebulized treatments. 2. ct of chest reviewed, needs follow up ct for SHARLA nodule in 3 mon. . 3. prn IV fluids for low BP. improved 4. Continue oxygen supplementation. 5. on eliquis, monitor for bleeding 6. bronchodilator 7. pepcid for gi prophylaxis needs rehab 8. follow cardiology recommendations DAVIAN GUNTER MD Apr 20, 2016 14:18
[2016-04-20] MEDS: ATORVASTATIN CALCIUM 20 MG TABLET PO SCH (20:20)
--- NOTE | 2016-04-20 20:25 | PDOC ---
PROGRESS NOTES Chief Complaint Chief Complaint Acute hypoxic, hypercapnic respir failure ASSESSMENT AND PLAN 1. CAP: much improved. D/w Dr Jennings: ok for D/C from his standpoint 2. COPD exacerbation: improving 3. Afib: chronic with currently good rate control. 4. CHF: severe systolic/mild diastolic, with EF 10-15%. pacer/AICD in place 5. OAC: on eliquis previously. restart 6. HTN: meds mostly on hold 2/2 soft BP. cardiology input noted. 7. Thrombocytopenia: prob multifactorial, incl CHF, poss viral infect. recovered 8. Anemia: normochromic, normocytic, chronic, 2/2 CHF. monitor 9. PCM: severe. supplements 10. Constipation: bowel regimen 11. Hiatal hernia: no acute issues 12. Prognosis: poor. discussed with pt: and family again today. hospice w/ NH when available Vitals Vitals Vital Signs Date Time Temp Pulse Resp B/P Pulse Ox O2 Delivery O2 Flow Rate FiO2 04/20/16 14:45 98.1 83 18 91/53 95 98.1 04/20/16 12:54 Nasal Cannula 4.0 Physical Exam Physical Exam cachetic General: Alert, Oriented X3, Cooperative, No acute distress Heart: Normal S1, Normal S2, No murmurs, Other ( ICD in L upper chest) Lungs: Clear Abdomen: Normal bowel sounds, Soft, No tenderness Extremities: No edema Skin: No rashes Review of Systems Review of Systems breathing well. fatigued after visiting with family CEZAR FRITZ MD Apr 20, 2016 20:24
[2016-04-20] MEDS: APIXABAN 2.5 MG TABLET. PO SCH (21:57)
[2016-04-21 03:34] VITALS: BP 106/62
[2016-04-21] MEDS: LEVOFLOXACIN 250 MG TABLET. PO SCH (05:31)
[2016-04-21 07:00] VITALS: BP 98/51
[2016-04-21] MEDS: IPRATRPIUM/ALBUTEROL 0.5/2.5MG 3 ML NEBU. NEB SCH ×4 (08:29→20:59)
[2016-04-21] MEDS: LIDOCAINE (700MG/PATCH) PATCH. TD SCH (09:00)
[2016-04-21] MEDS: APIXABAN 2.5 MG TABLET. PO SCH (09:48)
[2016-04-21] MEDS: CALCIUM CARBONATE 500 MG TAB.CHEW PO PRN (09:48)
[2016-04-21] MEDS: FAMOTIDINE 20 MG TABLET. PO SCH (09:48)
[2016-04-21] MEDS: LISINOPRIL 20 MG TABLET PO SCH ×2 (09:49→10:01)
[2016-04-21] MEDS: SENNOSIDES/DOCUSATE 8.6/50MG TABLET. PO SCH (09:50)
[2016-04-21] MEDS: METOPROLOL SUCC 24HR ER 50 MG TAB.ER.24H. PO SCH (09:50)
[2016-04-21] MEDS: GUAIFENESIN 200 MG/10 ML LIQUID. PO SCH ×4 (09:50→21:37)
[2016-04-21] MEDS: STRIVERDI RESPIMAT INH SCH (10:00)
[2016-04-21] MEDS: CALCIUM CARB/VIT D3 500/200 TABLET PO SCH (10:00)
--- NOTE | 2016-04-21 10:05 | PDOC ---
PULMONARY PROGRESS NOTES Subjective no increase soa much better Vitals Vital Signs Date Time Temp Pulse Resp B/P Pulse Ox O2 Delivery O2 Flow Rate FiO2 04/21/16 09:50 74 98/51 04/21/16 08:30 100 Nasal Cannula 5.0 04/21/16 07:00 97.7 18 97.7 ROS: No Nausea, No Chest Pain, No Abdominal Pain, No Increase Cough General: Alert, No acute distress HEENT: Other (nc at perrl, poor dentition, nose inflamed mucosa) Lungs: Clear Cardiovascular: S1, S2 Abdomen: Soft, Non-tender Neuro Exam: Alert Extremities: No Edema Skin: Warm Medications Active Scripts Medications Dose Route/Sig Days Date Category Nutritional Shake (Lactose-Reduced Food) 237 Ml Liquid 237 Ml PO BID 04/12/16 Reported Calcium 500 + Vit D 200 Tablet (Calcium Carbonate/Vitamin D3) 1 Each Tablet 1 Each PO 04/12/16 Reported Furosemide 20 Mg Tablet 10 Mg PO PRN PRN 04/12/16 Reported Polyethylene Glycol 3350 17 Gm Powd.pack 17 Gm PO PRN DAILY PRN 04/12/16 Reported Phenazopyridine Hcl 200 Mg Tablet 1 Tab PO TID 04/12/16 Reported Striverdi Respimat (Olodaterol HCl) 4 Gm Mist.inhal 4 Gm IH DAILY 04/12/16 Reported Metoprolol Succinate 50 Mg Tab.er.24h 25 Mg PO 04/12/16 Reported Lisinopril 20 Mg Tablet 1 Tab PO DAILY 04/12/16 Reported Lidocaine Hcl 5 Ml Jel..ml. 5 Ml MM PRN Q4HRS PRN 04/12/16 Reported Senna-Docusate Sodium Tablet (Sennosides/Docusate Sodium) 1 Each Tablet 1 Each PO 04/12/16 Reported Vitamin D-3 (Cholecalciferol (Vitamin D3)) 2,000 Unit Tablet 1,000 Unit PO 04/12/16 Reported Atorvastatin Calcium 20 Mg Tablet 1 Tab PO DAILY 04/12/16 Reported Eliquis (Apixaban) 5 Mg Tablet 5 Mg PO BID 04/12/16 Reported Albuterol Sulfate Conc Neb Soln (Albuterol Sulfate) 2.5 Mg/0.5 Ml Vial.neb 1 Vial NEB PRN QID PRN 04/12/16 Reported Proair Hfa Inhaler (Albuterol Sulfate) 8.5 Gm Hfa.aer.ad 1 Puff INH PRN QID PRN 04/12/16 Reported Tudorza Pressair (Aclidinium [place]) 400 Mcg Aer.pow.ba 400 Mcg IH BID 04/12/[address] of chest reviewed, No acute finding seen. Extensive emphysematous changes in the lungs. Scattered areas of volume loss in the lungs likely reflect compressive atelectasis and scar. Superimposed pneumonia in the left lower lobe is not entirely excluded Solitary 6 mm pulmonary nodule in left upper Impression . 1. Abnormal ct chest with Left upper lobe nodule, nodular scarring LLL, basal atelectasis vs ? pneumonia, severe bullous COPD 2. pneumonia. 3. Chronic respiratory failure with acute decompensation/ treated with BIPAP 4. Significant weight loss, body mass index of 15.1. 5. Moderate protein malnutrition, present upon admission. 6. Leukopenia. 7. LAM 8. severe CMP(EF10%) Plan . 1. PO antibiotics ,continue nebulized treatments. 2. ct of chest reviewed, needs follow up ct for SHARLA nodule in 3 mon. . 3. prn IV fluids for low BP. improved 4. Continue oxygen supplementation. 5. on eliquis, monitor for bleeding 6. bronchodilator 7. pepcid for gi prophylaxis needs rehab 8. follow cardiology recommendations DAVIAN GUNTER MD Apr 21, 2016 10:05
[2016-04-21 10:55] VITALS: BP 85/52
--- NOTE | 2016-04-21 12:09 | PDOC ---
PROGRESS NOTES Chief Complaint Chief Complaint Acute hypoxic, hypercapnic respir failure ASSESSMENT AND PLAN 1. CAP: much improved. 2. COPD exacerbation: resolving 3. Afib: chronic with currently good rate control. 4. CHF: severe systolic/mild diastolic, with EF 10-15%. pacer/AICD in place 5. OAC: on eliquis previously. restart 6. HTN: meds mostly on hold 2/2 soft BP. cardiology input noted. 7. Thrombocytopenia: prob multifactorial, incl CHF, poss viral infect. recovered 8. Anemia: normochromic, normocytic, chronic, 2/2 CHF. monitor 9. PCM: severe. supplements 10. Constipation: bowel regimen 11. Hiatal hernia: no acute issues 12. Prognosis: poor. discussed with pt: and family again today. hospice w/ NH when available Vitals Vitals Vital Signs Date Time Temp Pulse Resp B/P Pulse Ox O2 Delivery O2 Flow Rate FiO2 04/21/16 10:55 97.7 76 18 85/52 91 Nasal Cannula 3.0 97.7 Physical Exam Physical Exam cachetic General: Alert, Oriented X3, Cooperative, No acute distress Heart: Normal S1, Normal S2, No murmurs, Other ( ICD in L upper chest) Lungs: Clear Abdomen: Normal bowel sounds, Soft, No tenderness Extremities: No edema Skin: No rashes Review of Systems Review of Systems more SOB today. Comment Review of Relevant I have reviewed the following items leonie (where applicable) has been applied. Labs Microbiology 04/15/16 Blood Culture - Final, Complete NO GROWTH AFTER 5 DAYS 04/13/16 Gram Stain - Final, Complete 04/12/16 Urine Culture - Final, Complete 04/12/16 Urine Culture Result 1 (KAREN) - Final, Complete Medications Current Medications Ondansetron HCl (Zofran) 4 mg PRN Q6HRS PRN IV NAUSEA/VOMITING 1ST CHOICE; Start 04/12/16 at 10:15 Prochlorperazine Edisylate (Compazine) 10 mg PRN Q6HRS PRN IV NAUSEA/VOMITING 2ND CHOICE; Start 04/12/16 at 10:15 Prochlorperazine (Compazine) 25 mg PRN Q12HR PRN AL NAUSEA/VOMITING; Start at 10:15 Al Hydrox/Mg Hydrox/Simethicone (Mylanta Plus Xs) 30 ml PRN Q3HRS PRN PO HEARTBURN / GAS; Start 04/12/16 at 10:15 Calcium Carbonate/ Glycine (Tums) 500 mg PRN Q3HRS PRN PO UPSET STOMACH Last administered on 04/21/16 09:48; Start 04/12/16 at 10:15 Oxycodone HCl (Roxicodone) 5 mg PRN Q3HRS PRN PO BREAKTHROUGH PAIN Last administered on 04/16/16 20:52; Start 04/12/16 at 10:15 Morphine Sulfate 1 mg PRN Q1HR PRN IV PAIN; Start 04/12/16 at 10:15 Magnesium Hydroxide (Milk Of Magnesia) 2,400 mg PRN Q12HR PRN PO CONSTIPATION; Start 04/12/16 at 10:15 Lactulose 20 gm PRN Q12HR PRN PO CONSTIPATION; Start 04/12/16 at 10:15 Bisacodyl (Dulcolax Supp) 10 mg PRN DAILY PRN AL CONSTIPATION; Start 04/12/16 at 10:15 Apixaban (Eliquis) 5 mg BID PO Last administered on 04/13/16 09:27; Start at 10:30; Stop 04/13/16 at 14:44; Status DC Atorvastatin Calcium (Lipitor) 20 mg QHS PO Last administered on 04/20/16 20: 20; Start 04/12/16 at 21:00 Calcium/Vitamin D (Oscal D 500mg/ 200uts) 1 tab DAILY PO Last administered on 10:00; Start 04/12/16 at 11:00 Furosemide (Lasix) 10 mg DAILY PRN PO Fluid retention; Start 04/12/16 at 10:15 ; Stop 04/12/16 at 10:15; Status DC Lidocaine HCl (Xylocaine 2% Topical 5gm Tube) 1 belkys PRN Q4HRS PRN TP PAIN; Start 04/12/16 at 10:15 Lisinopril (Prinivil) 20 mg DAILY PO Last administered on 04/20/16 09:28; Start 04/12/16 at 10:30 Metoprolol Succinate (Toprol Xl) 25 mg DAILY PO Last administered on 04/21/16 09:50; Start 04/12/16 at 10:30 Phenazopyridine HCl (Pyridium) 200 mg TID PO Last administered on 04/18/16 14: 45; Start 04/12/16 at 14:00; Stop 04/19/16 at 12:45; Status DC Polyethylene Glycol (miraLAX PACKET) 17 gm PRN DAILY PRN PO CONSTIPATION Last administered on 04/18/16 23:15; Start 04/12/16 at 10:15 Senna/Docusate Sodium (Senna Plus) 1 tab DAILY PO Last administered on 09:50; Start 04/12/16 at 10:30 Non-Formulary Medication 400 mcg BID IH ; Start 04/12/16 at 21:00; Status UNV Non-Formulary Medication 1 vial PRN QID PRN NEB SHORTNESS OF BREATH; Start at 10:15; Stop 04/12/16 at 10:36; Status DC Non-Formulary Medication 1 puff PRN QID PRN INH SHORTNESS OF BREATH; Start at 10:15; Stop 04/12/16 at 10:36; Status DC Non-Formulary Medication 237 ml BID PO ; Start 04/12/16 at 21:00; Stop 04/12/16 at 21:00; Status DC Non-Formulary Medication 4 gm DAILY IH ; Start 04/13/16 at 09:00; Stop 04/13/16 at 09:00; Status DC Info (Anti-Coagulation Monitoring By Pharmacy) 1 each PRN DAILY PRN MC SEE COMMENTS Last administered on 04/13/16 11:07; Start 04/12/16 at 10:30 Albuterol/ Ipratropium (Duoneb) 3 ml RTQID NEB ; Start 04/12/16 at 12:00; Status UNV Albuterol Sulfate 2.5 mg 2.5 mg PRN Q6HRS PRN NEB SHORTNESS OF BREATH Last administered on 04/19/16 09:41; Start 04/12/16 at 10:45 Levofloxacin/ Dextrose (LEVAQUIN 500mg PREMIX) 100 ml @ 100 mls/hr Q24H IV Last administered on 04/12/16 17:11; Start 04/12/16 at 14:00; Stop 04/13/16 at 11:06; Status DC Guaifenesin (Robitussin) 200 mg QID PO Last administered on 04/21/16 09:50; Start 04/12/16 at 17:00 Albuterol/ Ipratropium (Duoneb) 3 ml RTQID NEB Last administered on 04/21/16 08:29; Start 04/12/16 at 16:00 Non-Formulary Medication 1 ea 1 ea DAILY INH Last administered on 04/21/16 10: 00; Start 04/13/16 at 09:00 Levofloxacin/ Dextrose (LEVAQUIN 250mg PREMIX) 50 ml @ 50 mls/hr Q24H IV Last administered on 04/16/16 18:26; Start 04/13/16 at 17:00; Stop 04/17/16 at 15:08 ; Status DC Lidocaine (Lidoderm) 1 patch DAILY TD Last administered on 04/19/16 11:11; Start 04/13/16 at 14:45 Famotidine (Pepcid) 20 mg DAILY PO Last administered on 04/21/16 09:48; Start 04/15/16 at 09:00 Apixaban (Eliquis) 5 mg BID PO Last administered on 04/15/16 09:05; Start at 12:00; Stop 04/15/16 at 12:30; Status DC Levofloxacin 250 mg 250 mg DAILY06 PO Last administered on 04/21/16 05:31; Start 04/17/16 at 16:00 Sodium Chloride (Iv Sodium Chloride 0.9% 1000ml Bag) 1,000 ml @ 1,000 mls/hr 1X ONCE IV Last administered on 04/19/16 11:56; Start 04/19/16 at 12:15; Stop 04/19/16 at 13:14; Status DC Apixaban (Eliquis) 2.5 mg BID PO Last administered on 04/21/16 09:48; Start at 21:00 Active Scripts Active Reported Nutritional Shake (Lactose-Reduced Food) 237 Ml Liquid 237 Ml PO BID Calcium 500 + Vit D 200 Tablet (Calcium Carbonate/Vitamin D3) 1 Each Tablet 1 Each PO Furosemide 20 Mg Tablet 10 Mg PO PRN PRN Polyethylene Glycol 3350 17 Gm Powd.pack 17 Gm PO PRN DAILY PRN Phenazopyridine Hcl 200 Mg Tablet 1 Tab PO TID Striverdi Respimat (Olodaterol HCl) 4 Gm Mist.inhal 4 Gm IH DAILY Metoprolol Succinate 50 Mg Tab.er.24h 25 Mg PO Lisinopril 20 Mg Tablet 1 Tab PO DAILY Lidocaine Hcl 5 Ml Jel..ml. 5 Ml MM PRN Q4HRS PRN Senna-Docusate Sodium Tablet (Sennosides/Docusate Sodium) 1 Each Tablet 1 Each PO Vitamin D-3 (Cholecalciferol (Vitamin D3)) 2,000 Unit Tablet 1,000 Unit PO Atorvastatin Calcium 20 Mg Tablet 1 Tab PO DAILY Eliquis (Apixaban) 5 Mg Tablet 5 Mg PO BID Albuterol Sulfate Conc Neb Soln (Albuterol Sulfate) 2.5 Mg/0.5 Ml Vial.neb 1 Vial NEB PRN QID PRN Proair Hfa Inhaler (Albuterol Sulfate) 8.5 Gm Hfa.aer.ad 1 Puff INH PRN QID PRN Tudorza Pressair (Aclidinium [place]) 400 Mcg Aer.pow.ba 400 Mcg IH BID Vitals/I & O Vital Sign - Last 24 Hours 04/20/16 04/20/16 04/20/16 04/20/16 12:54 14:45 19:00 20:00 Temp 98.1 97.9 98.1 97.9 Pulse 83 81 Resp 18 20 B/P 91/53 102/69 Pulse Ox 99 95 92 O2 Delivery Nasal Cannula Nasal Cannula Nasal Cannula O2 Flow Rate 4.0 3.0 4.0 04/20/16 04/20/16 04/21/16 04/21/16 21:10 23:00 03:34 07:00 Temp 97.7 97.8 97.7 97.7 97.8 97.7 Pulse 87 77 74 Resp 19 18 18 B/P 118/74 106/62 98/51 Pulse Ox 99 92 92 100 O2 Delivery Nasal Cannula Nasal Cannula Nasal Cannula Nasal Cannula O2 Flow Rate 4.0 3.0 3.0 3.0 04/21/16 04/21/16 04/21/16 08:30 09:50 10:55 Temp 97.7 97.7 Pulse 74 76 Resp 18 B/P 98/51 85/52 Pulse Ox 100 91 O2 Delivery Nasal Cannula Nasal Cannula O2 Flow Rate 5.0 3.0 Intake and Output 04/20/16 04/20/16 04/21/16 15:00 23:00 07:00 Intake Total 700 ml 200 ml Output Total 600 ml Balance 100 ml 200 ml CEZAR FRITZ MD Apr 21, 2016 12:09
[2016-04-21] MEDS: ANTI-COAG MONITOR BY PHARMACY. MC PRN (13:07)
[2016-04-21 14:58] VITALS: BP 115/71
[2016-04-21 19:00] VITALS: BP 157/72
[2016-04-21] MEDS: APIXABAN 5 MG TABLET. PO SCH (21:37)
[2016-04-21] MEDS: ATORVASTATIN CALCIUM 20 MG TABLET PO SCH (21:37)
[2016-04-21 23:00] VITALS: BP 118/67
[2016-04-22 03:00] VITALS: BP 105/75
[2016-04-22] MEDS: LEVOFLOXACIN 250 MG TABLET. PO SCH (05:23)
[2016-04-22] MEDS: IPRATRPIUM/ALBUTEROL 0.5/2.5MG 3 ML NEBU. NEB SCH ×4 (07:24→19:10)
[2016-04-22 07:29] VITALS: BP 113/74
[2016-04-22] MEDS: CALCIUM CARB/VIT D3 500/200 TABLET PO SCH (09:00)
[2016-04-22] MEDS: LIDOCAINE (700MG/PATCH) PATCH. TD SCH (09:00)
[2016-04-22] MEDS: STRIVERDI RESPIMAT INH SCH (09:00)
[2016-04-22] MEDS: GUAIFENESIN 200 MG/10 ML LIQUID. PO SCH ×4 (09:08→20:18)
[2016-04-22] MEDS: CALCIUM CARBONATE 500 MG TAB.CHEW PO PRN (09:09)
[2016-04-22] MEDS: SENNOSIDES/DOCUSATE 8.6/50MG TABLET. PO SCH (09:10)
[2016-04-22] MEDS: APIXABAN 5 MG TABLET. PO SCH ×2 (09:10→20:18)
[2016-04-22] MEDS: METOPROLOL SUCC 24HR ER 50 MG TAB.ER.24H. PO SCH (09:10)
[2016-04-22] MEDS: FAMOTIDINE 20 MG TABLET. PO SCH (09:10)
[2016-04-22] MEDS: LISINOPRIL 20 MG TABLET PO SCH (09:11)
[2016-04-22] MEDS ORDERED: PHENAZOPYRIDINE 200 MG TABLET. PO PRN (09:45)
--- NOTE | 2016-04-22 11:04 | PDOC ---
PULMONARY PROGRESS NOTES Subjective no increase soa much better Vitals Vital Signs Date Time Temp Pulse Resp B/P Pulse Ox O2 Delivery O2 Flow Rate FiO2 04/22/16 09:11 75 113/74 04/22/16 07:29 98.3 19 98 Nasal Cannula 4.0 98.3 ROS: No Nausea, No Chest Pain, No Abdominal Pain, No Increase Cough General: Alert, No acute distress HEENT: Other (nc at perrl, poor dentition, nose inflamed mucosa) Lungs: Clear Cardiovascular: S1, S2 Abdomen: Soft, Non-tender Neuro Exam: Alert Extremities: No Edema Skin: Warm Medications Active Scripts Medications Dose Route/Sig Days Date Category Nutritional Shake (Lactose-Reduced Food) 237 Ml Liquid 237 Ml PO BID 04/12/16 Reported Calcium 500 + Vit D 200 Tablet (Calcium Carbonate/Vitamin D3) 1 Each Tablet 1 Each PO 04/12/16 Reported Furosemide 20 Mg Tablet 10 Mg PO PRN PRN 04/12/16 Reported Polyethylene Glycol 3350 17 Gm Powd.pack 17 Gm PO PRN DAILY PRN 04/12/16 Reported Phenazopyridine Hcl 200 Mg Tablet 1 Tab PO TID 04/12/16 Reported Striverdi Respimat (Olodaterol HCl) 4 Gm Mist.inhal 4 Gm IH DAILY 04/12/16 Reported Metoprolol Succinate 50 Mg Tab.er.24h 25 Mg PO 04/12/16 Reported Lisinopril 20 Mg Tablet 1 Tab PO DAILY 04/12/16 Reported Lidocaine Hcl 5 Ml Jel..ml. 5 Ml MM PRN Q4HRS PRN 04/12/16 Reported Senna-Docusate Sodium Tablet (Sennosides/Docusate Sodium) 1 Each Tablet 1 Each PO 04/12/16 Reported Vitamin D-3 (Cholecalciferol (Vitamin D3)) 2,000 Unit Tablet 1,000 Unit PO 04/12/16 Reported Atorvastatin Calcium 20 Mg Tablet 1 Tab PO DAILY 04/12/16 Reported Eliquis (Apixaban) 5 Mg Tablet 5 Mg PO BID 04/12/16 Reported Albuterol Sulfate Conc Neb Soln (Albuterol Sulfate) 2.5 Mg/0.5 Ml Vial.neb 1 Vial NEB PRN QID PRN 04/12/16 Reported Proair Hfa Inhaler (Albuterol Sulfate) 8.5 Gm Hfa.aer.ad 1 Puff INH PRN QID PRN 04/12/16 Reported Tudorza Pressair (Aclidinium [place]) 400 Mcg Aer.pow.ba 400 Mcg IH BID 04/12/[address] of chest reviewed, No acute finding seen. Extensive emphysematous changes in the lungs. Scattered areas of volume loss in the lungs likely reflect compressive atelectasis and scar. Superimposed pneumonia in the left lower lobe is not entirely excluded Solitary 6 mm pulmonary nodule in left upper Impression . 1. Abnormal ct chest with Left upper lobe nodule, nodular scarring LLL, basal atelectasis vs ? pneumonia, severe bullous COPD 2. pneumonia. 3. Chronic respiratory failure with acute decompensation/ treated with BIPAP 4. Significant weight loss, body mass index of 15.1. 5. Moderate protein malnutrition, present upon admission. 6. Leukopenia. 7. LAM 8. severe CMP(EF10%) Plan . 1. PO antibiotics ,continue nebulized treatments. 2. ct of chest reviewed, needs follow up ct for SHARLA nodule in 3 mon. . 3. prn IV fluids for low BP. improved 4. Continue oxygen supplementation. 5. on eliquis, monitor for bleeding 6. bronchodilator 7. pepcid for gi prophylaxis needs rehab 8. follow cardiology recommendations 9. d/w RN/ pt to go to home hospice DAVIAN GUNTER MD Apr 22, 2016 11:03
[2016-04-22 11:09] VITALS: BP 91/60
[2016-04-22] MEDS: ANTI-COAG MONITOR BY PHARMACY. MC PRN (13:41)
--- NOTE | 2016-04-22 14:26 | PDOC ---
PROGRESS NOTES Chief Complaint Chief Complaint Acute hypoxic, hypercapnic respir failure ASSESSMENT AND PLAN 1. CAP: much improved. 2. COPD exacerbation: resolving 3. Afib: chronic with currently good rate control. 4. CHF: severe systolic/mild diastolic, with EF 10-15%. pacer/AICD in place 5. OAC: on eliquis previously. restart 6. HTN: meds mostly on hold 2/2 soft BP. cardiology input noted. 7. Thrombocytopenia: prob multifactorial, incl CHF, poss viral infect. recovered 8. Anemia: normochromic, normocytic, chronic, 2/2 CHF. monitor 9. PCM: severe. supplements 10. Constipation: bowel regimen 11. Hiatal hernia: no acute issues 12. Prognosis: poor. discussed with pt: and family again today. hospice w/ NH when available History of Present Illness History of Present Illness Breathing at baseline on 4 LNC at home 16/09 CLeared from pulmo to be dcd but palliative got involved in weekend and son wants hospice for pt Pt apparently knows this PLAN: HOld dc [facility] mt today Original plan was home with Vitals Vitals Vital Signs Date Time Temp Pulse Resp B/P Pulse Ox O2 Delivery O2 Flow Rate FiO2 04/22/16 11:19 98 Nasal Cannula 4.0 04/22/16 11:09 97.9 70 18 91/60 97.9 Physical Exam Physical Exam cachetic General: Alert, Oriented X3, Cooperative, No acute distress Heart: Normal S1, Normal S2, No murmurs, Other ( ICD in L upper chest) Lungs: Clear Abdomen: Normal bowel sounds, Soft, No tenderness Extremities: No edema Skin: No rashes Review of Systems Review of Systems weak, soa, cough, blood tinged urine - pyridium induced Assessment and Plan Assessmemt and Plan Problems Medical Problems: (1) CAP (community acquired pneumonia) Status: Acute (2) Pneumonia Status: Acute Problems: Comment Review of Relevant I have reviewed the following items leonie (where applicable) has been applied. Labs Microbiology 04/15/16 Blood Culture - Final, Complete NO GROWTH AFTER 5 DAYS 04/13/16 Gram Stain - Final, Complete 04/12/16 Urine Culture - Final, Complete 04/12/16 Urine Culture Result 1 (KAREN) - Final, Complete Medications Current Medications Ondansetron HCl (Zofran) 4 mg PRN Q6HRS PRN IV NAUSEA/VOMITING 1ST CHOICE; Start 04/12/16 at 10:15 Prochlorperazine Edisylate (Compazine) 10 mg PRN Q6HRS PRN IV NAUSEA/VOMITING 2ND CHOICE; Start 04/12/16 at 10:15 Prochlorperazine (Compazine) 25 mg PRN Q12HR PRN IA NAUSEA/VOMITING; Start at 10:15 Al Hydrox/Mg Hydrox/Simethicone (Mylanta Plus Xs) 30 ml PRN Q3HRS PRN PO HEARTBURN / GAS; Start 04/12/16 at 10:15 Calcium Carbonate/ Glycine (Tums) 500 mg PRN Q3HRS PRN PO UPSET STOMACH Last administered on 04/22/16 09:09; Start 04/12/16 at 10:15 Oxycodone HCl (Roxicodone) 5 mg PRN Q3HRS PRN PO BREAKTHROUGH PAIN Last administered on 04/16/16 20:52; Start 04/12/16 at 10:15 Morphine Sulfate 1 mg PRN Q1HR PRN IV PAIN; Start 04/12/16 at 10:15 Magnesium Hydroxide (Milk Of Magnesia) 2,400 mg PRN Q12HR PRN PO CONSTIPATION; Start 04/12/16 at 10:15 Lactulose 20 gm PRN Q12HR PRN PO CONSTIPATION; Start 04/12/16 at 10:15 Bisacodyl (Dulcolax Supp) 10 mg PRN DAILY PRN IA CONSTIPATION; Start 04/12/16 at 10:15 Apixaban (Eliquis) 5 mg BID PO Last administered on 04/13/16 09:27; Start at 10:30; Stop 04/13/16 at 14:44; Status DC Atorvastatin Calcium (Lipitor) 20 mg QHS PO Last administered on 04/21/16 21: 37; Start 04/12/16 at 21:00 Calcium/Vitamin D (Oscal D 500mg/ 200uts) 1 tab DAILY PO Last administered on 09:00; Start 04/12/16 at 11:00 Furosemide (Lasix) 10 mg DAILY PRN PO Fluid retention; Start 04/12/16 at 10:15 ; Stop 04/12/16 at 10:15; Status DC Lidocaine HCl (Xylocaine 2% Topical 5gm Tube) 1 belkys PRN Q4HRS PRN TP PAIN; Start 04/12/16 at 10:15 Lisinopril (Prinivil) 20 mg DAILY PO Last administered on 04/22/16 09:11; Start 04/12/16 at 10:30 Metoprolol Succinate (Toprol Xl) 25 mg DAILY PO Last administered on 04/22/16 09:10; Start 04/12/16 at 10:30 Phenazopyridine HCl (Pyridium) 200 mg TID PO Last administered on 04/18/16 14: 45; Start 04/12/16 at 14:00; Stop 04/19/16 at 12:45; Status DC Polyethylene Glycol (miraLAX PACKET) 17 gm PRN DAILY PRN PO CONSTIPATION Last administered on 04/18/16 23:15; Start 04/12/16 at 10:15 Senna/Docusate Sodium (Senna Plus) 1 tab DAILY PO Last administered on 09:10; Start 04/12/16 at 10:30 Non-Formulary Medication 400 mcg BID IH ; Start 04/12/16 at 21:00; Status UNV Non-Formulary Medication 1 vial PRN QID PRN NEB SHORTNESS OF BREATH; Start at 10:15; Stop 04/12/16 at 10:36; Status DC Non-Formulary Medication 1 puff PRN QID PRN INH SHORTNESS OF BREATH; Start at 10:15; Stop 04/12/16 at 10:36; Status DC Non-Formulary Medication 237 ml BID PO ; Start 04/12/16 at 21:00; Stop 04/12/16 at 21:00; Status DC Non-Formulary Medication 4 gm DAILY IH ; Start 04/13/16 at 09:00; Stop 04/13/16 at 09:00; Status DC Info (Anti-Coagulation Monitoring By Pharmacy) 1 each PRN DAILY PRN MC SEE COMMENTS Last administered on 04/22/16 13:41; Start 04/12/16 at 10:30 Albuterol/ Ipratropium (Duoneb) 3 ml RTQID NEB ; Start 04/12/16 at 12:00; Status UNV Albuterol Sulfate 2.5 mg 2.5 mg PRN Q6HRS PRN NEB SHORTNESS OF BREATH Last administered on 04/19/16 09:41; Start 04/12/16 at 10:45 Levofloxacin/ Dextrose (LEVAQUIN 500mg PREMIX) 100 ml @ 100 mls/hr Q24H IV Last administered on 04/12/16 17:11; Start 04/12/16 at 14:00; Stop 04/13/16 at 11:06; Status DC Guaifenesin (Robitussin) 200 mg QID PO Last administered on 04/22/16 13:32; Start 04/12/16 at 17:00 Albuterol/ Ipratropium (Duoneb) 3 ml RTQID NEB Last administered on 04/22/16 11:18; Start 04/12/16 at 16:00 Non-Formulary Medication 1 ea 1 ea DAILY INH Last administered on 04/22/16 09: 00; Start 04/13/16 at 09:00 Levofloxacin/ Dextrose (LEVAQUIN 250mg PREMIX) 50 ml @ 50 mls/hr Q24H IV Last administered on 04/16/16 18:26; Start 04/13/16 at 17:00; Stop 04/17/16 at 15:08 ; Status DC Lidocaine (Lidoderm) 1 patch DAILY TD Last administered on 04/19/16 11:11; Start 04/13/16 at 14:45 Famotidine (Pepcid) 20 mg DAILY PO Last administered on 04/22/16 09:10; Start 04/15/16 at 09:00 Apixaban (Eliquis) 5 mg BID PO Last administered on 04/15/16 09:05; Start at 12:00; Stop 04/15/16 at 12:30; Status DC Levofloxacin 250 mg 250 mg DAILY06 PO Last administered on 04/22/16 05:23; Start 04/17/16 at 16:00 Sodium Chloride (Iv Sodium Chloride 0.9% 1000ml Bag) 1,000 ml @ 1,000 mls/hr 1X ONCE IV Last administered on 04/19/16 11:56; Start 04/19/16 at 12:15; Stop 04/19/16 at 13:14; Status DC Apixaban (Eliquis) 2.5 mg BID PO Last administered on 04/21/16 09:48; Start at 21:00; Stop 04/21/16 at 13:05; Status DC Apixaban (Eliquis) 5 mg BID PO Last administered on 04/22/16 09:10; Start at 21:00 Phenazopyridine HCl (Pyridium) 200 mg PRN TID PRN PO URINARY PAIN; Start at 09:45 Active Scripts Active Reported Nutritional Shake (Lactose-Reduced Food) 237 Ml Liquid 237 Ml PO BID Calcium 500 + Vit D 200 Tablet (Calcium Carbonate/Vitamin D3) 1 Each Tablet 1 Each PO Furosemide 20 Mg Tablet 10 Mg PO PRN PRN Polyethylene Glycol 3350 17 Gm Powd.pack 17 Gm PO PRN DAILY PRN Phenazopyridine Hcl 200 Mg Tablet 1 Tab PO TID Striverdi Respimat (Olodaterol HCl) 4 Gm Mist.inhal 4 Gm IH DAILY Metoprolol Succinate 50 Mg Tab.er.24h 25 Mg PO Lisinopril 20 Mg Tablet 1 Tab PO DAILY Lidocaine Hcl 5 Ml Jel..ml. 5 Ml MM PRN Q4HRS PRN Senna-Docusate Sodium Tablet (Sennosides/Docusate Sodium) 1 Each Tablet 1 Each PO Vitamin D-3 (Cholecalciferol (Vitamin D3)) 2,000 Unit Tablet 1,000 Unit PO Atorvastatin Calcium 20 Mg Tablet 1 Tab PO DAILY Eliquis (Apixaban) 5 Mg Tablet 5 Mg PO BID Albuterol Sulfate Conc Neb Soln (Albuterol Sulfate) 2.5 Mg/0.5 Ml Vial.neb 1 Vial NEB PRN QID PRN Proair Hfa Inhaler (Albuterol Sulfate) 8.5 Gm Hfa.aer.ad 1 Puff INH PRN QID PRN Tudorza Pressair (Aclidinium [place]) 400 Mcg Aer.pow.ba 400 Mcg IH BID Vitals/I & O Vital Sign - Last 24 Hours 04/21/16 04/21/16 04/21/16 04/21/16 14:58 15:54 19:00 20:00 Temp 97.5 97.9 97.5 97.9 Pulse 58 101 Resp 22 21 B/P 115/71 157/72 Pulse Ox 89 94 O2 Delivery Nasal Cannula Nasal Cannula Nasal Cannula Nasal Cannula O2 Flow Rate 3.0 4.0 4.0 3.0 04/21/16 04/21/16 04/21/16 04/22/16 21:00 21:04 23:00 03:00 Temp 98.8 98.1 98.8 98.1 Pulse 79 70 Resp 21 20 B/P 118/67 105/75 Pulse Ox 100 100 93 98 O2 Delivery Nasal Cannula BiPAP/CPAP Nasal Cannula Nasal Cannula O2 Flow Rate 4.0 4.0 4.0 04/22/16 04/22/16 04/22/16 04/22/16 07:25 07:29 08:00 09:10 Temp 98.3 98.3 Pulse 75 75 Resp 19 B/P 113/74 113/74 Pulse Ox 100 98 O2 Delivery Nasal Cannula Nasal Cannula Nasal Cannula O2 Flow Rate 4.0 4.0 4.0 04/22/16 04/22/16 04/22/16 09:11 11:09 11:19 Temp 97.9 97.9 Pulse 75 70 Resp 18 B/P 113/74 91/60 Pulse Ox 98 98 O2 Delivery Nasal Cannula Nasal Cannula O2 Flow Rate 4.0 4.0 Intake and Output 04/21/16 04/21/16 04/22/16 15:00 23:00 07:00 Intake Total 600 ml 400 ml Output Total 920 ml Balance -320 ml 400 ml GREYSON SMILEY MD Apr 22, 2016 14:26
[2016-04-22 15:01] VITALS: BP 122/68
--- NOTE | 2016-04-22 19:25 | PDOC2 ---
PALLIATIVE CARE Palliative Care Note Palliative Care Consult requested by Dr. Alex to address hospice and discharge plan Patient seen 11am . Discharge order for home with HH noted. Called son Harsh to arrange meeting to discuss discharge plan Met with patient, son, executive director of nursing Ramiro; reviewed medical condition. COPD , CHF with EF 10-15%; HTN; anemia Prognosis was discussed with family per son. Patient is refusing SNU. SNU recommended by PT Patient does live at home by himself--has caregivers and help with house periodically throughout the day. Patient has been confused at night. Son understands patient will need 24/7 care when discharge. Discussed options for care; home with hospice, [facility] with hospice.vs plan for home health per discharge orders : palliative home health was also discussed. Reviewed Code Status: Patient and son request DNR/DNI. Long discussion regarding AICD. Patient and son want to continue with AICD. They do not want to keep coming back to the hospital. They understand his breathing is declining as well as over-all functioning. Harsh-son would like to talk with other member of the family before making a final decision. Outside the Hospital DNR/DNI signed. Patient currently is DNR/DNI Harsh son to return call tomorrow regarding family wishes/goals. LOBITO CARRANZA Apr 22, 2016 19:25
[2016-04-22 19:44] VITALS: BP 119/73
[2016-04-22] MEDS: ATORVASTATIN CALCIUM 20 MG TABLET PO SCH (20:18)
[2016-04-22 23:00] VITALS: BP 121/63
[2016-04-23] VITALS (8 sets, daily range): BP systolic 111–144; BP diastolic 58–100
[2016-04-23] MEDS: OXYCODONE IR 5 MG TABLET. PO PRN (01:53)
[2016-04-23] MEDS: LEVOFLOXACIN 250 MG TABLET. PO SCH (05:39)
[2016-04-23] MEDS: IPRATRPIUM/ALBUTEROL 0.5/2.5MG 3 ML NEBU. NEB SCH ×4 (06:18→19:29)
[2016-04-23] MEDS: LIDOCAINE (700MG/PATCH) PATCH. TD SCH (09:00)
[2016-04-23] MEDS: CALCIUM CARB/VIT D3 500/200 TABLET PO SCH (09:00)
[2016-04-23] MEDS: STRIVERDI RESPIMAT INH SCH (09:00)
[2016-04-23] MEDS: CALCIUM CARBONATE 500 MG TAB.CHEW PO PRN (09:38)
[2016-04-23] MEDS: METOPROLOL SUCC 24HR ER 50 MG TAB.ER.24H. PO SCH (09:38)
[2016-04-23] MEDS: SENNOSIDES/DOCUSATE 8.6/50MG TABLET. PO SCH (09:38)
[2016-04-23] MEDS: GUAIFENESIN 200 MG/10 ML LIQUID. PO SCH ×4 (09:38→21:15)
[2016-04-23] MEDS: APIXABAN 5 MG TABLET. PO SCH ×2 (09:38→21:15)
[2016-04-23] MEDS: FAMOTIDINE 20 MG TABLET. PO SCH (09:38)
[2016-04-23] MEDS: LISINOPRIL 20 MG TABLET PO SCH (09:39)
--- NOTE | 2016-04-23 10:03 | PDOC ---
PULMONARY PROGRESS NOTES Subjective no increase soa Vitals Vital Signs Date Time Temp Pulse Resp B/P Pulse Ox O2 Delivery O2 Flow Rate FiO2 04/23/16 09:39 116 139/95 04/23/16 09:00 94 BiPAP/CPAP 04/23/16 08:32 4.0 04/23/16 07:00 98.0 24 98.0 ROS: No Nausea, No Chest Pain, No Abdominal Pain, No Increase Cough General: Alert, No acute distress HEENT: Other (nc at perrl, poor dentition, nose inflamed mucosa) Lungs: Clear Cardiovascular: S1, S2 Abdomen: Soft, Non-tender Neuro Exam: Alert Extremities: No Edema Skin: Warm Medications Active Scripts Medications Dose Route/Sig Days Date Category Nutritional Shake (Lactose-Reduced Food) 237 Ml Liquid 237 Ml PO BID 04/12/16 Reported Calcium 500 + Vit D 200 Tablet (Calcium Carbonate/Vitamin D3) 1 Each Tablet 1 Each PO 04/12/16 Reported Furosemide 20 Mg Tablet 10 Mg PO PRN PRN 04/12/16 Reported Polyethylene Glycol 3350 17 Gm Powd.pack 17 Gm PO PRN DAILY PRN 04/12/16 Reported Phenazopyridine Hcl 200 Mg Tablet 1 Tab PO TID 04/12/16 Reported Striverdi Respimat (Olodaterol HCl) 4 Gm Mist.inhal 4 Gm IH DAILY 04/12/16 Reported Metoprolol Succinate 50 Mg Tab.er.24h 25 Mg PO 04/12/16 Reported Lisinopril 20 Mg Tablet 1 Tab PO DAILY 04/12/16 Reported Lidocaine Hcl 5 Ml Jel..ml. 5 Ml MM PRN Q4HRS PRN 04/12/16 Reported Senna-Docusate Sodium Tablet (Sennosides/Docusate Sodium) 1 Each Tablet 1 Each PO 04/12/16 Reported Vitamin D-3 (Cholecalciferol (Vitamin D3)) 2,000 Unit Tablet 1,000 Unit PO 04/12/16 Reported Atorvastatin Calcium 20 Mg Tablet 1 Tab PO DAILY 04/12/16 Reported Eliquis (Apixaban) 5 Mg Tablet 5 Mg PO BID 04/12/16 Reported Albuterol Sulfate Conc Neb Soln (Albuterol Sulfate) 2.5 Mg/0.5 Ml Vial.neb 1 Vial NEB PRN QID PRN 04/12/16 Reported Proair Hfa Inhaler (Albuterol Sulfate) 8.5 Gm Hfa.aer.ad 1 Puff INH PRN QID PRN 04/12/16 Reported Tudorza Pressair (Aclidinium [place]) 400 Mcg Aer.pow.ba 400 Mcg IH BID 04/12/[address] of chest reviewed, No acute finding seen. Extensive emphysematous changes in the lungs. Scattered areas of volume loss in the lungs likely reflect compressive atelectasis and scar. Superimposed pneumonia in the left lower lobe is not entirely excluded Solitary 6 mm pulmonary nodule in left upper Impression . 1. Abnormal ct chest with Left upper lobe nodule, nodular scarring LLL, basal atelectasis vs ? pneumonia, severe bullous COPD 2. pneumonia. 3. Chronic respiratory failure with acute decompensation/ treated with BIPAP 4. Significant weight loss, body mass index of 15.1. 5. Moderate protein malnutrition, present upon admission. 6. Leukopenia. 7. LAM 8. severe CMP(EF10%) Plan . Home with hospice 1. PO antibiotics ,continue nebulized treatments. 2. ct of chest reviewed, needs follow up ct for SHARLA nodule in 3 not needed if in hospice FAHAD BOATENG MD Apr 23, 2016 10:03
[2016-04-23] MEDS ORDERED: ALPRAZOLAM 0.25 MG TABLET PO PRN (11:15)
--- NOTE | 2016-04-23 11:19 | PDOC3 ---
Discharge Summary Visit Information Date of Admission: Apr 12, 2016 Date of Discharge: Apr 23, 2016 Admitting Diagnosis Comment: 1. CAP: much improved. 2. COPD exacerbation: resolving 3. Afib: chronic with currently good rate control. 4. CHF: severe systolic/mild diastolic, with EF 10-15%. pacer/AICD in place 5. OAC: on eliquis previously. restart 6. HTN: meds mostly on hold 2/2 soft BP. cardiology input noted. 7. Thrombocytopenia: prob multifactorial, incl CHF, poss viral infect. recovered 8. Anemia: normochromic, normocytic, chronic, 2/2 CHF. monitor 9. PCM: severe. supplements 10. Constipation: bowel regimen 11. Hiatal hernia: no acute issues 12. Prognosis: poor. discussed with pt: and family again today. hospice w/ NH when available Final Diagnosis Problems Medical Problems: (1) CAP (community acquired pneumonia) Status: Acute (2) Pneumonia Status: Acute Brief Hospital Course Allergies Allergies Coded Allergies Type Severity Reaction Last Updated Verified amiodarone Allergy Intermediate 04/18/16 Yes melatonin Allergy Intermediate 04/18/16 Yes mometasone furoate Allergy Intermediate 04/18/16 Yes tiotropium Allergy Intermediate 04/18/16 Yes trazodone Allergy Intermediate 04/18/16 Yes Vital Signs Vital Signs Date Time Temp Pulse Resp B/P Pulse Ox O2 Delivery O2 Flow Rate FiO2 04/23/16 11:00 98.0 87 24 118/65 83 Nasal Cannula 4.0 98.0 Brief Hospital Course Mr. Syed is a 71 old AA male admitted for respi issues, treated for CAP, Co morbids include severe CM with EF 10-15 %. Course remarkable for needing BIPAP bec of respi issues. Some blood tinged urine also on elliquis for the heart, also on pyridium, Urology consulted, urine cleared as soon as pyridium dcd. Pt is on chronic indwelliong khan Pt DNR PAt of palliative got involved. DNR. interested in hospice but not to turn off the defib, In any case if not hospice then will go home with HH, ex is [employer] Dw family and son and pt and RN and SW Dipso: home with hospice vs HH COnults; pulmo Pt seen and exa mined Dc 34 mins Discharge Information Condition at Discharge: Improved, Stable Disposition/Orders: D/C to Home w/ HH Scheduled Aclidinium [place] (Tudorza Pressair) 400 MCG IH BID (Reported) Apixaban (Eliquis) 5 MG PO BID (Reported) Atorvastatin Calcium (Atorvastatin Calcium) 1 TAB PO DAILY (Reported) Lactose-Reduced Food (Nutritional Shake) 237 ML PO BID (Reported) Lisinopril (Lisinopril) 1 TAB PO DAILY (Reported) Olodaterol HCl (Striverdi Respimat) 4 GM IH DAILY (Reported) Phenazopyridine Hcl (Phenazopyridine Hcl) 1 TAB PO TID (Reported) Scheduled PRN Albuterol Sulfate (Proair Hfa Inhaler) 1 PUFF INH PRN QID PRN PRN SHORTNESS OF BREATH (Reported) Albuterol Sulfate (Albuterol Sulfate Conc Neb Soln) 1 VIAL NEB PRN QID PRN PRN SHORTNESS OF BREATH (Reported) Furosemide (Furosemide) 10 MG PO PRN PRN PRN Fluid retention (Reported) Lidocaine Hcl (Lidocaine Hcl) 5 ML MM PRN Q4HRS PRN PRN PAIN (Reported) Polyethylene Glycol 3350 (Polyethylene Glycol 3350) 17 GM PO PRN DAILY PRN PRN CONSTIPATION (Reported) Miscellaneous Medications Calcium Carbonate/Vitamin D3 (Calcium 500 + Vit D 200 Tablet) 1 EACH PO ( Reported) Cholecalciferol (Vitamin D3) (Vitamin D-3) 1,000 UNIT PO (Reported) Metoprolol Succinate (Metoprolol Succinate) 25 MG PO (Reported) Sennosides/Docusate Sodium (Senna-Docusate Sodium Tablet) 1 EACH PO (Reported) GREYSON SMILEY MD Apr 23, 2016 11:19
--- NOTE | 2016-04-23 12:36 | PDOC2 ---
PALLIATIVE CARE Palliative Care Note Palliative Care Met with patient, [facility]. Reviewed plan of care. Family would like patient to go to family members home with Hospice, Continue with AICD and BiPap. No preference of Hospice Agency. Address where patient will go: [address] [place] [address]; home of Florinda Glass DME: BSC; oxygen, BiPap; Hospital Bed. [facility] can be reached at [phone]. Dafne puente and will assist with discharge plan LOBITO CARRANZA Apr 23, 2016 12:36
[2016-04-23] MEDS: ALBUTEROL SULFATE 2.5 MG/3 ML NEBU. NEB PRN (15:27)
[2016-04-23] MEDS: ATORVASTATIN CALCIUM 20 MG TABLET PO SCH (21:15)
[2016-04-24 03:13] VITALS: BP 136/79
[2016-04-24] MEDS: LEVOFLOXACIN 250 MG TABLET. PO SCH (06:05)
[2016-04-24] MEDS: IPRATRPIUM/ALBUTEROL 0.5/2.5MG 3 ML NEBU. NEB SCH (07:26)
[2016-04-24 07:39] VITALS: BP 131/83
[2016-04-24] MEDS: GUAIFENESIN 200 MG/10 ML LIQUID. PO SCH (08:25)
[2016-04-24] MEDS: CALCIUM CARB/VIT D3 500/200 TABLET PO SCH (08:25)
[2016-04-24] MEDS: APIXABAN 5 MG TABLET. PO SCH (08:25)
[2016-04-24] MEDS: SENNOSIDES/DOCUSATE 8.6/50MG TABLET. PO SCH (08:25)
[2016-04-24 08:26] VITALS: BP 131/83
[2016-04-24] MEDS: LISINOPRIL 20 MG TABLET PO SCH (08:26)
[2016-04-24] MEDS: FAMOTIDINE 20 MG TABLET. PO SCH (08:26)
[2016-04-24] MEDS: METOPROLOL SUCC 24HR ER 50 MG TAB.ER.24H. PO SCH (08:26)
[2016-04-24] MEDS: LIDOCAINE (700MG/PATCH) PATCH. TD SCH (08:27)
[2016-04-24] MEDS: STRIVERDI RESPIMAT INH SCH (08:27)
--- NOTE | 2016-04-24 11:09 | PDOC ---
Provider Note Provider Note pt did not dc yesterday as son wanted 1 more night Pt ready for dc today APR and dc summ done - no GREYSON Orozco MD Apr 24, 2016 11:09
== END 2016-04-24 10:51 | disposition hospice, home (50) | DRG 871 ==
LOC: 6 SOUTH 04:55
PROVIDERS: ADMIT Internal Medicine; ATTEND Internal Medicine
PROC: 5A09357 Assistance with Respiratory Ventilation, Less than 24 Consecutive Hours, Continuous Positive Airway Pressure (ICD-10-PCS; principal; 2016-04-23)
DX: A41.9 Sepsis, unspecified organism (principal); N17.0 Acute kidney failure with tubular necrosis; E43 Unspecified severe protein-calorie malnutrition; J15.6 Pneumonia due to other Gram-negative bacteria; E87.0 Hyperosmolality and hypernatremia; I47.2 Ventricular tachycardia; I50.40 Unspecified combined systolic (congestive) and diastolic (congestive) heart failure; J44.0 Chronic obstructive pulmonary disease with (acute) lower respiratory infection; J44.1 Chronic obstructive pulmonary disease with (acute) exacerbation; J96.11 Chronic respiratory failure with hypoxia; J98.11 Atelectasis; N39.0 Urinary tract infection, site not specified; R64 Cachexia; Z68.1 Body mass index [BMI] 19.9 or less, adult; Z66 Do not resuscitate; D64.9 Anemia, unspecified; D69.6 Thrombocytopenia, unspecified; D72.819 Decreased white blood cell count, unspecified; E78.5 Hyperlipidemia, unspecified; G47.33 Obstructive sleep apnea (adult) (pediatric); I10 Essential (primary) hypertension; I25.10 Atherosclerotic heart disease of native coronary artery without angina pectoris; I48.2 Chronic atrial fibrillation; K44.9 Diaphragmatic hernia without obstruction or gangrene; K59.00 Constipation, unspecified; N40.1 Benign prostatic hyperplasia with lower urinary tract symptoms; R31.0 Gross hematuria; M19.90 Unspecified osteoarthritis, unspecified site; Z87.01 Personal history of pneumonia (recurrent); Z87.891 Personal history of nicotine dependence; Z95.810 Presence of automatic (implantable) cardiac defibrillator; Z88.8 Allergy status to other drugs, medicaments and biological substances; Z79.899 Other long term (current) drug therapy
CPT/HCPCS: 36415; 36600; 71010; 71250; 74150; 80048; 82040; 82805; 83735; 84100; 85027; 85610; 87040; 87086; 87205; 93005; 93306; 94250; 94640; 94660; 94760; J1956; J7030; J7620; 97116; 97530; 97535